=== PATIENT | female | born 1940 | race Caucasian/White ===

== ENCOUNTER 2019-02-24 19:01 | Inpatient (IN) ==
--- NOTE | 2019-02-24 19:56 | Diag Imaging Result Doc PS360 ---
EXAM: CT ABDOMEN/PELVIS W/O CONTRAST 02/24/2019 HISTORY: leticia pain, cva tenderness TECHNIQUE: This exam was performed using automated exposure control, adjustment of mA or kV according to patient size, and/or use of iterative reconstruction technique. COMMENT: There are no previous studies available for comparison. There is a small pleural effusion and minimal atelectasis in the posterior costophrenic sulcus on the right. There is a small pericardial effusion. There is no evidence of gallstones. There is no evidence of nephrolithiasis. There is some fullness of the right renal collecting system. There is no definite evidence of ureterolithiasis. There is a fair amount of stool present in the transverse and right colon as well as in the rectosigmoid colon. There is diverticulosis in the sigmoid colon without evidence of active diverticulitis. 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 There are numerous calcified injection granulomata in the gluteal fat. No evidence of acute bony disease is present. IMPRESSION: Constipation. Small right pleural effusion and basilar atelectasis. Minimal dilatation of the right renal collecting system of uncertain etiology. Diverticulosis coli. Electronically signed by Wellington Salmon 02/24/2019 7:54 PM
[2019-02-24 20:06] LABS: BILIRUBIN URINE NEGATIVE (NEGATIVE); BLOOD URINE NEGATIVE (NEGATIVE); CLARITY CLEAR (CLEAR); COLOR YELLOW; GLUCOSE URINE NEGATIVE (NEGATIVE); KETONE URINE NEGATIVE (NEGATIVE); LEUKOCYTES URINE NEGATIVE (NEGATIVE); NITRITE URINE NEGATIVE (NEGATIVE); PROTEIN URINE NEGATIVE (NEGATIVE); SP GRAVITY URINE 1.015; UROBILINOGEN URINE NORMAL
[2019-02-24 20:21] LABS: URINE BACTERIA 1+ /HFP; URINE CAST NONE SEEN /LPF; URINE CRYSTAL NONE SEEN /HPF; URINE EPITHELIAL CELLS <10 /HPF (<10); URINE WBC <10 /HPF (<10); URINE YEAST NONE SEEN /HPF
[2019-02-24 20:22] LABS: URINE SMALL ROUND CELLS RENAL PRESENT; URINE SOURCE CATH
[2019-02-24] MEDS ORDERED: TORADOL IM ONE (20:37)
--- NOTE | 2019-02-24 21:08 | Diag Imaging Result Doc PS360 ---
EXAM: CT ADDITNL MPLANAR/3D RECONST 02/24/2019 HISTORY: LUMBAR SPINE REFORMATIONS TECHNIQUE: This exam was performed using automated exposure control, adjustment of mA or kV according to patient size, and/or use of iterative reconstruction technique. COMMENT: There is some subsidence of the upper endplate of T12 without evidence of retropulsed fragments or subluxation. Otherwise the lumbar vertebral bodies appear to be well maintained. There is some generalized osteopenia. At the T11-12 level there is no evidence of spinal or foraminal stenosis. At T12-L1, there is no evidence of spinal or foraminal stenosis. At L1-2 there is no evidence of spinal or foraminal stenosis. At L2-3 there is no evidence of spinal or foraminal stenosis. At L3-4 there is some disc bulge and ligamentum flavum hypertrophy as well as hypertrophic change in the left facet. There is mild spinal and left foraminal stenosis. At the L4-5 level there is disc bulge and ligamentum flavum hypertrophy with a moderate degree of spinal stenosis. The foramina appear to be patent. At the L5-S1 level there is no evidence of spinal or foraminal stenosis. There are no previous studies available for comparison. No evidence of subsidence of the upper endplate of T12 is visible on the lateral chest radiograph of 01/04/2019. IMPRESSION: Probable osteoporotic compression fracture of the upper endplate of T12 which has occurred since 01/04/2019. No evidence of retropulsed fragments. Degenerative changes elsewhere as described above with spinal stenosis at L3-4 and L4-5 and left foraminal stenosis at L3-4. Electronically signed by Wellington Salmon 02/24/2019 9:05 PM
--- NOTE | 2019-02-25 01:07 | PROVIDER DOCUMENTATION ---
This chart was entered by Mirian Guadalupe Scribe, acting as scribe for Elvin Dan MD. HPI-Musculoskeletal Pain/Inj - GENERAL Chief Complaint: Back Pain Stated Complaint: lower back pain Time Seen by Provider: 02/24/19 19:08 Source: patient, family - HX OF PRESENT ILLNESS-MUSKULOSKELTAL Nature of Presenting Problem: 78 yof c/o pt arrived via ems for lower back pain she's had "for a while.". pt is tender on any movement in back. unsure if pt took otc meds or hot/ice therapy for pain. pt was seen in er yest for overactive bladder. pt has hx of blindness rt eye, high cholesterol, and dvt. Quality of Pain: reports: aching Severity in ED: mild Timing: still present Recently seen or treated by another doctor?: Yes (er yesterday ) Review of Systems - Adult - REVIEW OF SYSTEMS - ADULT Constitutional: reports: no symptoms reported Eyes: reports: no symptoms reported Ears, Nose, Mouth & Throat: reports: no symptoms reported Cardiovascular: reports: no symptoms reported Respiratory: reports: no symptoms reported Gastrointestinal: reports: no symptoms reported Genitourinary: reports: no symptoms reported Musculoskeletal: reports: see HPI, back pain (lower back). denies: joint pain, joint swelling, neck pain Integumentary: reports: no symptoms reported Neurological: reports: no symptoms reported Psychiatric: reports: no symptoms reported Endocrine: reports: no symptoms reported Hematologic/Lymphatic: reports: no symptoms reported Allergic/Immunologic: reports: no symptoms reported All Other Systems: Reviewed and Negative Past History - Adult - PAST MEDICAL HISTORY-ADULT Review of Records: reports: Old Records Reviewed, Nursing Assessment Review, Medications Reviewed, Social history reviewed & non-contributory. Major Childhood Illnesses: reports: denies history Cardiovascular: reports: blood clots, hyperlipidemia Respiratory: reports: denies history Gastrointestinal: reports: GERD Obstetrical/Gynecological: reports: denies history Genitourinary: reports: denies history Musculoskeletal: reports: denies history Neurological: reports: denies history Psychiatric: reports: denies history Endocrine/Immune: reports: denies history Other Conditions: reports: blindness (rt eye) - PRIOR SURGERIES/PROCEDURES Surgical/Procedure History: reports: , other (eye surgery) - IMMUNIZATION STATUS Childhood Immunizations: See Nurse Assessment Flu Vaccine: See Nurse Assessment - FAMILY HISTORY Family History: reviewed, not pertinent - SOCIAL HISTORY Smoking: other (former) Substance Use: none/never Physical Exam-Injury Related - Physical Exam-Injury Related Initial Vital Signs Reviewed: Yes General Appearance: alert, mild distress, thin. negative: lethargic, slow to respond, obtunded Immobilization?: negative: backboard, C-collar Eyes: PERRL/EOMI, pink conjunctivae, other (blind in rt eye). negative: conjuctival exudate, EOM palsy, photophobia Head, Ears, Nose, Mouth & Throat: normocephalic/atraumatic, moist mucous membranes, normal ENT inspection Neck: non-tender, full range of motion, supple, normal inspection Respiratory: chest non-tender, lungs clear, normal breath sounds Cardiovascular: normal peripheral pulses, regular rate, rhythm Chest/Breast: deferred Peripheral Pulses: radial (R): 2+, radial (L): 2+ Abdominal Exam: normal bowel sounds, non tender, soft Female Genitalia/Pelvic Exam: deferred Lymphatic: no adenopathy Back Exam: other (tenderness to palp and movement gneralized back). negative: normal inspection, no CVA tenderness, no vertebral tenderness Extremity: normal range of motion, non-tender, normal inspection Integumentary: normal color, warm/dry Neurologic: grossly normal, no motor/sensory deficits Psych/Mental Status: normal mood/affect, normal thought content, normal thought process, oriented x 3 - Glascow Coma Score Best Eye Response ([place]): (4) open spontaneously Best Verbal Response ([place]): (5) oriented Best Motor Response ([place]): (6) obeys commands [place] Total: 15 Progress - PLAN OF CARE/RESULTS Progress/Plan/Lab Results: Orders Category Date Time Status Admit - [facility] Routine AdmDCTranf 02/25/19 01:[address] ABDOMEN/PELVIS W/O CONTRAST [CT] Stat Exams 02/24/19 19:[address] ADDITNL MPLANAR/3D RECONST [CT] Stat Exams 02/24/19 20:43 Completed UA NIMS W/REFLEX CULT PL [URINALYSIS] Stat Lab 02/24/19 19:29 Completed Ketorolac [Toradol] Med 02/24/19 20:37 Discontinued 30 mg IM NOW ONE Tramadol [Ultram] Med 02/25/19 01:08 Active 50 mg PO Q6H PRN PRN Transfer/Admit Order [TRANSFER] Routine Transfer 02/25/19 01:07 Completed Result Diagrams: 02/26/19 11:09 02/26/19 11:09 - CT/MRI 1 CT Study: Abdomen, Pelvis Impression: Abnormal, See EMR Report (EXAM: CT ABDOMEN/PELVIS W/O CONTRAST 02/24/2019 HISTORY: leticia pain, cva tenderness TECHNIQUE: This exam was performed using automated exposure control, adjustment of mA or kV according to patient size, and/or use of iterative reconstruction technique. COMMENT: There are no previous studies available for comparison. There is a small pleural effusion and minimal atelectasis in the posterior costophrenic sulcus on the right. There is a small pericardial effusion. There is no evidence of gallstones. There is no evidence of nephrolithiasis. There is some fullness of the right renal collecting system. There is no definite evidence of ureterolithiasis. There is a fair amount of stool present in the transverse and right colon as well as in the rectosigmoid colon. There is diverticulosis in the sigmoid colon without evidence of active diverticulitis. 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 There are numerous calcified injection granulomata in the gluteal fat. No evidence of acute bony disease is present. IMPRESSION: Constipation. Small right pleural effusion and basilar atelectasis. Minimal dilatation of the right renal collecting system of uncertain etiology. Diverticulosis coli. Electronically signed by Wellington Salmon 02/24/2019 7:54 PM) 2 CT Study: Lumbar Spine Impression: Abnormal ([facility] - [address] [facility] [address], [place] [address] [facility] - [address] [place] [address] Department of Imaging Patient: INGA FRANCISCO Date: 02/24/19#: [id number] : 2ADM Status: [facility] ERAcct#: [id number] Age/Sex: 78/FRoom/Bed: Loc: P.ED Ordering Physician: Elvin Dan MD Family Physician: Josefa Crockett Reason for Procedure: LUMBAR SPINE REFORMATIONS Signed EXAM: CT ADDITNL MPLANAR/3D RECONST 02/24/2019 HISTORY: LUMBAR SPINE REFORMATIONS TECHNIQUE: This exam was performed using automated exposure control, adjustment of mA or kV according to patient size, and/or use of iterative reconstruction technique. COMMENT: There is some subsidence of the upper endplate of T12 without evidence of retropulsed fragments or subluxation. Otherwise the lumbar vertebral bodies appear to be well maintained. There is some generalized osteopenia. At the T11-12 level there is no evidence of spinal or foraminal stenosis. At T12-L1, there is no evidence of spinal or foraminal stenosis. At L1-2 there is no evidence of spinal or foraminal stenosis. At L2-3 there is no evidence of spinal or foraminal stenosis. At L3-4 there is some disc bulge and ligamentum flavum hypertrophy as well as hypertrophic change in the left facet. There is mild spinal and left foraminal stenosis. At the L4-5 level there is disc bulge and ligamentum flavum hypertrophy with a moderate degree of spinal stenosis. T he foramina appear to be patent. At the L5-S1 level there is no evidence of spinal or foraminal stenosis. There are no previous studies available for comparison. No evidence of subsidence of the upper endplate of T12 is visible on the lateral chest radiograph of 01/04/2019. IMPRESSION: Probable osteoporotic compression fracture of the upper endplate of T12 which has occurred since 01/04/2019. No evidence of retropulsed fragments. Degenerative changes elsewhere as described above with spinal stenosis at L3-4 and L4-5 and left foraminal stenosis at L3-4. Electronically signed by Wellington Salmon 02/24/2019 9:05 PM 02/24/192 Interpreting Physician: Wellington Salmon MD Dictated Lopez e/Time: 02/24/192057 cc: Elvin Dan MD; Josefa Crockett) - CONSULTS/PCP/HOSPITALIST Notification #1 *Consult/PCP/Hospitalist*: Dr. Wall Time Discussed: 00:20 Consult Disposition: Admit (Dr. wall will admit pt) Departure - Departure Date of Disposition Decision: 02/25/19 Time of Disposition Decision: 02:18 DIAGNOSIS: T12 compression fracture Disposition: ADMITTED INPATIENT 09 Certified Medical Emergency: Emergent Condition: Stable - Critical Care Note This patient required my direct & personal management of CC.: No Attestation - Physician/ FARZANEH Attestation Patient care was provided by Advanced Practice Provider:: No The physician spent face to face time with patient:: Yes Advanced Practice Provider documentation review:: Supervising physician onsite and consulted in the evaluation and care of this patient. The physician did have a face to face encounter with the patient. This chart was documented by the indicated scribe, (Mirian Guadalupe Scribe) and accurately reflects the services I performed and decisions made by me, Elvin Dan MD, as attested by the provider's signature.
[2019-02-25] MEDS: ULTRAM PO PRN ×2 (03:57→12:21)
[2019-02-25] MEDS ORDERED: TEARISOL OPH SOLUTION BOTH EYES PRN (08:18)
[2019-02-25] MEDS ORDERED: ROBAXIN PO PRN (08:24)
[2019-02-25] MEDS ORDERED: TYLENOL PO PRN (08:30)
[2019-02-25 08:41] LABS: BASO# 0.01 X1000 (0.0-0.2); BASO% 0.1 % (0.0-0.8); EOS# 0.09 X1000 (0.0-0.7); EOS% 1.3 % (0.0-10.0); HEMATOCRIT 29.8 % (37.0-47.0); HEMOGLOBIN 9.8 g/dL (12.0-16.0); IMM GRAN# 0.08 X1000 (0.0-0.04); IMM GRAN% 1.2 % (0.0-0.5); LYMPH# 0.41 X1000 (1.2-3.4); LYMPH% 6.1 % (20.5-51.1); MCH 30.4 PG (27-31); MCHC 32.9 g/dL (33-37); MCV 92.5 FL (81-99); MONO# 0.09 X1000 (0.11-0.59); MONO% 1.3 % (1.7-9.3); MPV 8.1 FL (7.4-10.4); NEUT# 6.06 X1000 (1.4-6.5); PLT 438 X1000 (130-400); RBC 3.22 XMIL (4.2-5.4); RDW 13.7 % (11.5-14.5); WBC 6.74 X1000 (4.8-10.8)
[2019-02-25] MEDS: TIMOPTIC 0.25% OPH SOLUTION LEFT EYE SCH ×2 (09:07→21:05)
[2019-02-25] MEDS: PRED FORTE 1% OPH SUSPENSION BOTH EYES SCH (09:07)
[2019-02-25] MEDS: THERA M PLUS PO SCH (09:08)
[2019-02-25] MEDS: RESTASIS 0.05% OPH DROPS BOTH EYES SCH ×2 (09:08→21:05)
[2019-02-25] MEDS: ELIQUIS PO SCH ×2 (09:08→21:05)
[2019-02-25] MEDS: DETROL LA PO SCH (09:08)
[2019-02-25] MEDS: FOLIC ACID PO SCH (09:08)
[2019-02-25 09:12] LABS: AGAP 10; ALBUMIN 3.2 g/dL (3.5-5.0); ALKALINE PHOSPHATASE 90 U/L (32-104); BUN 12 mg/dL (8-22); CALCIUM 11.4 mg/dL (8.8-10.2); CHLORIDE 91 mmol/L (98-107); COSMO 261; CREATININE 0.4 mg/dL (0.5-0.9); ESTIMATED GFR > 60; GLUCOSE 103 mg/dL (70-104); GOT 15 U/L (10-30); GPT 10 U/L (10-36); MAGNESIUM 1.8 mg/dL (1.5-2.7); POTASSIUM 4.1 mmol/L (3.5-5.1); SODIUM 130 mmol/L (136-145); TCO2 29 mmol/L (25-35); TOTAL PROTEIN 6.6 g/dL (6.3-8.3)
[2019-02-25 10:13] LABS: INR 1.16; PROTIME 15.4 Seconds (11.0-16.0)
[2019-02-25 10:14] LABS: PTT 45.1 Seconds (22.3-41.8)
--- NOTE | 2019-02-25 10:50 | HISTORY AND PHYSICAL ---
ADDENDUM REPORT ASSESSMENT AND PLAN: Stage 2 small decubitus with larger area of deep tissue injury. Apparently she has had it for a while according to her. Mepilex has been applied, and Wound Care has been consulted. Dictated by CEM Willard for Jerson Lovell MD cc: CEM Willard MD
--- NOTE | 2019-02-25 10:53 | HISTORY AND PHYSICAL ---
PRIMARY CARE PROVIDER: Physician's outreach assistant, Bon, from [facility]. CHIEF COMPLAINT: Lower back pain and excessive urination. HISTORY OF PRESENT ILLNESS: Ms. Fina Pizarro is a 78-year-old, female with a medical history, most recently had tongue cancer with 35 radiation treatments this year and had a recent lung biopsy that was inconclusive. Also had a left leg DVT this year. She is on Eliquis for uveitis and is blind in the right eye. She has been taking methotrexate for that. Presented to [facility] on 02/23/2019 with excessive urination. She was prescribed Detrol LA which she will continue that. She has only had one dose and now she is back after last night being assisted from the chair to the bed, she had severe lower back pain. She states the pain actually started when she was in the chair sitting. Her level of activity is very low. She has to have assistance for short distances and for long distances, she has to be in a wheelchair. From being in bed and not very active, she also has a small stage II decubitus ulcer along with deep tissue injury. It is purple and bruised in her sacral area. Imaging reveals that she has a T12 compression fracture. She also has an elevated calcium level. Was not diagnosed with osteoporosis yet. Given these findings, she likely has osteoporosis most likely secondary to inactivity but some other differential diagnoses including multiple myeloma or hyperparathyroidism will need to be evaluated as well. Giving the severe pain, she is unable to bear weight. She denies having any falls and this fracture is new from previous imaging. It was not of there in December 2018 imaging. She will stay here, get some physical therapy. We will consult orthopedics just for any further recommendations. She is likely not going to have surgery, probably just a back brace and physical therapy and symptom management. PAST MEDICAL HISTORY: 1. Folic acid deficiency. 2. Overactive bladder. 3. 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 She has been on methotrexate. 4. Tongue cancer this year, 2018, where she has received 35 radiation treatments. She has also had a biopsy that showed inconclusive. 5. Left leg DVT, on Eliquis. 6. Arthritis. 7. Osteopenia. 8. Diverticulosis. 9. Degenerative joint disease. 10. Spinal stenosis of L3, 4, and 5. SURGICAL HISTORY: 1. Recent tongue biopsy with inconclusive results, reported by the . 2. Eye surgery. 3. section. SOCIAL HISTORY: Quit smoking 30 years ago but she was a 1 pack per day smoker for 10 years. Denies alcohol or illicit drug use. She lives at home with her who still works but him and her 2 sisters help her with short distance activity. She had to have a wheelchair for long distance activity. FAMILY HISTORY: Mother had emphysema. Father had diabetes. Brother had diabetes. Denies any cancer in the family. ALLERGIES: Codeine causes nausea and vomiting, prednisone in high doses causes psychosis. HOME MEDICATIONS: 1. Refresh eyedrops. 2. Prednisone eyedrops in both eyes daily. 3. Restasis 1 drop in both eyes twice a day. 4. Timolol maleate eyedrops 1 drop in left eye twice a day. 5. Methotrexate 20 mg p.o. weekly. 6. Folic acid 1 mg p.o. daily. 7. Eliquis 5 mg p.o. twice daily. 8. Multivitamin 1 tablet p.o. daily. 9. Detrol LA 2 mg p.o. daily. REVIEW OF SYSTEMS: Fourteen point review of systems are complete and all are negative except for those mentioned above in the HPI. PHYSICAL EXAMINATION: VITAL SIGNS: Temperature 97.9 degrees, heart rate 80, respiratory rate 16, blood pressure 137/51, O2 saturation 98% on room air. GENERAL: Ms. Fina Pizarro is a 78-year-old, female. She is in no acute distress. She is able answer questions appropriately. HEENT: Atraumatic, normocephalic. Left pupil is reactive. Right eye is clouded over and blind. Mucous membranes are dry. NECK: Trachea midline. CARDIOVASCULAR: S1, S2. Regular rate and rhythm. No rubs, gallops, or murmurs. No lower extremity edema. There are +2 dorsalis and radial pulses. Negative JVD or carotid bruits. PULMONARY: Clear to auscultate, bilateral breath sounds. No accessory muscle use or work of breathing noted. GI: Soft, nontender, nondistended. Positive bowel sounds x4. EXTREMITIES: Moves all extremities equally. Decreased range of motion. Decreased strength, about a 4/5. NEUROLOGIC: A and O x3. Follows commands. Sensory is intact. SKIN: Warm, dry, intact except for the sacrum. She has a stage II with along with some deep tissue injury. The stage II is very small. LABORATORY DATA: White blood cells 6000, hemoglobin 9, hematocrit 29, platelet count 438,000. Sodium 130, potassium 4.1, BUN 12, creatinine 0.4, glucose 103, calcium 11.4, magnesium 1.8. Bilirubin 0.60, AST 15, ALT 10. CK 15, troponin less than 0.01. Albumin is 3.2, lactate 0.7. Urinalysis is negative. There is only 1+ bacteria. IMAGIN. Abdominal and pelvic CT: Constipation, small right pleural effusion with basilar atelectasis, minimal dilatation of the right renal collecting system of uncertain etiology, and diverticulosis. 2. A 3D reconstruction of the lumbar spine: Probable osteoporotic compression fracture of the upper endplate of T12 which has occurred since 01/04/2019. No evidence of retropulsed fragments, degenerative changes elsewhere as described above, the spinal stenosis at L3-4 and L4-5, and left foraminal stenosis at L3 and L4. ASSESSMENT AND PLAN: 1. T12 compression fracture. Orthopedic surgery consulted. Physical therapy consulted. Symptoms of pain controlled by Robaxin or Ultram. She did receive a 1 time dose of 30 mg of Toradol intramuscularly last night. 2. Differential diagnoses for the T12 endplate compression fracture would be multiple myeloma (she has an elevated calcium level), osteoporosis, or hyperparathyroidism. Labs obtained or ordered are serum protein electrophoresis, serum free light chain assay, PTH, and also immunoglobulin levels, and a phosphorus level as well. She is anemic as well. 3. Anemia. Anemia labs have been ordered. Denies any black stools but she is on Eliquis. We will order a stool to rule out bleeding as well. Denies nausea. 4. Constipation on imaging. We will order Yu-Colace. 5. Folic acid deficiency. Continue her folic acid. 6. Recent overactive bladder diagnosis. Continue Detrol LA. 7. 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 Continue the methotrexate weekly. I believe she will get a dose tomorrow at 20 mg and continue all of her eyedrops. 8. Recent tongue cancer with 35 radiation treatments this year and a recent tongue biopsy that was inconclusive. 9. Left deep venous thrombosis this year, on Eliquis. We will continue that. 10. Deep venous thrombosis prophylaxis. Of course, she is on Eliquis so we will continue with the Eliquis that she takes. Dictated by CEM Willard for Jerson Lovell MD Addendum: Patient seen and examined by myself. Agree with CEM note. It reflects my assessment and plan. Patient is being admitted to hospital for a compression fracture at T12 level. Will consult Orthopedics, and because of hypercalcemia will order multiple myeloma workup. Will optimize pain control and will consult 7th grade social studies teacher for possible rehab placement. cc: CEM Willard MD Ellie Adams MTDD
[2019-02-25] MEDS: PERICOLACE PO SCH ×2 (11:08→21:05)
[2019-02-25 11:14] LABS: FREE T4 0.52 ng/dL (0.93-1.70); TSH 87.33 uIUmL (0.27-4.20)
[2019-02-25 14:25] LABS: PREALBUMIN 6.4 mg/dL (20-40)
[2019-02-25 14:31] LABS: FERRITIN 1858 ng/mL (13-150)
--- NOTE | 2019-02-25 14:37 | EKG Report ---
Test Performed on : 02/25/2019 12:46:24 PM Test Reason : rythm eval Blood Pressure : / mmHG Vent. Rate : 084 BPM Atrial Rate : 084 BPM P-R Int : 160 ms QRS Dur : 104 ms QT Int : 360 ms P-R-T Axes : 091 077 041 degrees QTc Int : 425 ms Normal sinus rhythm. Incomplete right bundle branch block Nonspecific T wave abnormality Abnormal ECG No previous ECGs available Unconfirmed Result
--- NOTE | 2019-02-25 15:18 | ORTHOPAEDICS CONSULTATION ---
DATE: 02/25/2019 CHIEF COMPLAINT: Low back pain. HISTORY OF PRESENT ILLNESS: This is a 78-year-old female who has been complaining of low back pain. She was moved last night, and I was asked to see her in orthopedic consultation. She was diagnosed with a T12 compression fracture revealed on the CT scan. She has history of spinal stenosis in her lumbar region. PAST MEDICAL HISTORY: See admission history and physical. PAST MEDICAL AND SURGICAL HISTORY: See admission history and physical. MEDICATIONS: See admission history and physical. ALLERGIES: See admission history and physical. REVIEW OF SYSTEMS: Negative except as noted in H P and in my exam and history and physical. RADIOLOGY DATA: A CT scan reveals a subtle compression fracture of the superior endplate of T12. There is no retropulsed fracture, and there was no significant vertebral body height loss. ASSESSMENT: Stable thoracic compression fracture at T12. PLAN: We will order a TLSO brace. I am going to order physical therapy with weightbearing as tolerated. Her pain should be managed as needed by the hospitalist. She can go to rehab when cleared medically. If she fails to improve and wishes surgery, we should probably send her to [facility] for possible kyphoplasty. We can also get an MRI if desired for surgery to evaluate whether this is an acute or chronic fracture. It apparently was not there on 01/07, so it appears to be acute. cc: Mynor Knutson MD [facility]
[2019-02-26] MEDS: ULTRAM PO PRN ×2 (04:14→19:52)
[2019-02-26] MEDS: TIMOPTIC 0.25% OPH SOLUTION LEFT EYE SCH ×2 (09:18→22:44)
[2019-02-26] MEDS: PRED FORTE 1% OPH SUSPENSION BOTH EYES SCH (09:19)
[2019-02-26] MEDS: RESTASIS 0.05% OPH DROPS BOTH EYES SCH ×2 (09:19→23:07)
[2019-02-26] MEDS: DETROL LA PO SCH (09:20)
[2019-02-26] MEDS: THERA M PLUS PO SCH (09:20)
[2019-02-26] MEDS: ELIQUIS PO SCH ×2 (09:20→22:44)
[2019-02-26] MEDS: FOLIC ACID PO SCH (09:20)
[2019-02-26] MEDS: PERICOLACE PO SCH ×2 (09:20→22:44)
--- NOTE | 2019-02-26 09:50 | EKG Report ---
Test Performed on : 02/26/2019 09:40:33 AM Test Reason : Changes in tele Blood Pressure : / mmHG Vent. Rate : 078 BPM Atrial Rate : 078 BPM P-R Int : 152 ms QRS Dur : 118 ms QT Int : 352 ms P-R-T Axes : 081 069 007 degrees QTc Int : 401 ms Normal sinus rhythm. Right bundle branch block Abnormal ECG When compared with ECG of 25-FEB-2019 12:46, (Unconfirmed) No significant change was found Unconfirmed Result
[2019-02-26 11:23] LABS: BASO# 0.01 X1000 (0.0-0.2); BASO% 0.1 % (0.0-0.8); EOS# 0.05 X1000 (0.0-0.7); EOS% 0.6 % (0.0-10.0); HEMATOCRIT 29.4 % (37.0-47.0); HEMOGLOBIN 9.5 g/dL (12.0-16.0); IMM GRAN# 0.04 X1000 (0.0-0.04); IMM GRAN% 0.5 % (0.0-0.5); LYMPH# 0.31 X1000 (1.2-3.4); LYMPH% 3.6 % (20.5-51.1); MCHC 32.3 g/dL (33-37); MCV 92.7 FL (81-99); MONO# 0.24 X1000 (0.11-0.59); MONO% 2.8 % (1.7-9.3); MPV 8.1 FL (7.4-10.4); NEUT# 8.03 X1000 (1.4-6.5); NEUT% 92.4 % (42.2-75.2); PLT 462 X1000 (130-400); RBC 3.17 XMIL (4.2-5.4); RDW 13.7 % (11.5-14.5); WBC 8.68 X1000 (4.8-10.8)
[2019-02-26 11:24] LABS: ESTIMATED GFR > 60
[2019-02-26 11:25] LABS: AGAP 11; BUN 12 mg/dL (8-22); CALCIUM 11.3 mg/dL (8.8-10.2); CHLORIDE 89 mmol/L (98-107); COSMO 259; CREATININE 0.5 mg/dL (0.5-0.9); GLUCOSE 100 mg/dL (70-104); POTASSIUM 4.3 mmol/L (3.5-5.1); SODIUM 129 mmol/L (136-145); TCO2 29 mmol/L (25-35)
[2019-02-26 11:39] LABS: MAGNESIUM 1.8 mg/dL (1.5-2.7); PHOSPHORUS 3.9 mg/dL (2.7-4.5)
[2019-02-26 11:43] LABS: LYMPHS 3 % (21-51); MONO 2 % (1-9); SEGS 95 % (42-75)
--- NOTE | 2019-02-26 12:31 | PROGRESS NOTE ---
DATE: 02/26/2019 SUBJECTIVE: Patient reports still having some back pain. Apparently, there has been also on admission noted some excessive urination. OBJECTIVE: Vital Signs: Temperature 98.5 degrees, heart rate 17, respiratory rate 18, blood pressure 142/50. O2 saturation 96% on room air. General: This is a 78-year-old female lying in bed in no acute distress. HEENT: Head is normocephalic, atraumatic. Right eye is clouded. Left pupil is reactive to light and accommodation. Neck: No JVD noted. No carotid bruits. Cardiovascular: S1, S2 heard. No murmurs, gallops, or rubs. Regular rate and rhythm. Respiratory: Clear bilaterally to auscultation. No work of breathing or using accessory muscles. Abdomen: Soft, nontender to palpation. Bowel sounds present. No organomegaly. Extremities: No clubbing, cyanosis, or edema. Peripheral pulses present in both legs. Neurological: Decreased strength in both lower extremities 4/5. Follows commands. Sensory is intact. Skin: In the sacrum, there is stage II pressure ulcer with some deep tissue injury. LABORATORY DATA: White cell count 8.68 hemoglobin 9.5, hematocrit 29.4, and MCV is normal. Sodium 129. Normal creatinine. Calcium 11.3, with ferritin 1858. Prealbumin 6.4. TSH is 87.33. ASSESSMENT AND PLAN: 1. T12 compression fracture. Orthopedics has been consulted. They recommend that a TLSO brace, and physical therapy has been ordered with weightbearing as tolerated. The patient does not need to have any surgical approach at this time, but he felt improved. They recommend to have neurosurgical evaluation for possible kyphoplasty if needed, but of course not at this time. 2. Severe hypercalcemia, one of the complaints for this patient was excess urination and dehydration. I think that is related to this hypercalcemia. In that regard, IV fluids has been started. Also, she has been provided Zometa, and also calcitonin in order to help calcium to lower down. We will check calcium tomorrow, and we will continue with IV fluids. 3. Anemia of chronic disease. At this point, I am not quite sure with this elevated calcium and anemia and back pain if this patient had multiple myeloma. Workup has been ordered. At this point, we will continue to monitor. 4. Severe hypothyroidism. This is a finding that the ER workup showed. At this time, we are going to order thyroid hormones. We are going to check a thyroid ultrasound to see if there are any nodules. We will continue to monitor. 5. Left lower extremity DVT. Patient is on Eliquis. We will continue with the same management. 6. Overactive bladder. Patient will continue with the Detrol LA. 7. Disposition: We will continue to monitor this patient closely. cc: Jerson Lovell MD MTDD
[2019-02-26] MEDS ORDERED: ZOMETA 4 MG in NS 100 ML IV ONE (13:00)
[2019-02-26] MEDS: NS 1,000 ML IV SCH (13:00)
[2019-02-26] MEDS ORDERED: MIACALCIN SUBQ SCH (14:00)
[2019-02-26] MEDS: MIACALCIN SUBQ SCH (14:56)
--- NOTE | 2019-02-26 15:10 | Diag Imaging Result Doc PS360 ---
EXAM: US SOFT TISSUE HEAD/NECK - 02/26/2019 HISTORY: hypothyroidism TECHNIQUE: Portable ultrasound thyroid COMPARISON: None. FINDINGS: The right lobe measures 2.6 x 0.9 x 1 cm in size. There is a 0.5 cm cystic lesion with small mural nodule at the lower right lobe. The left lobe measures 2.2 x 0.8 x 0.8 cm in size. There is a 0.3 cm complex, partially cystic appearing lesion at the mid left lobe. IMPRESSION: 0.5 cm cystic lesion with small mural nodule at lower right lobe. 0.3 cm complex, partially cystic lesion at mid left lobe. Electronically signed by Jermaine Shukla 02/26/2019 3:07 PM
[2019-02-27] MEDS: MIACALCIN SUBQ SCH (03:40)
[2019-02-27] MEDS: NS 1,000 ML IV SCH ×2 (03:46→17:45)
[2019-02-27 07:00] LABS: HEMATOCRIT 27.5 % (37.0-47.0); HEMOGLOBIN 8.9 g/dL (12.0-16.0); LYMPH% 2.8 % (20.5-51.1); MCH 29.8 PG (27-31); MCHC 32.4 g/dL (33-37); MPV 8.1 FL (7.4-10.4); NEUT% 91.9 % (42.2-75.2); PLT 453 X1000 (130-400); RBC 2.99 XMIL (4.2-5.4); RDW 13.7 % (11.5-14.5); WBC 6.69 X1000 (4.8-10.8)
[2019-02-27] MEDS ORDERED: SYNTHROID PO SCH (07:00)
[2019-02-27 07:01] LABS: BASO# 0.01 X1000 (0.0-0.2); BASO% 0.1 % (0.0-0.8); EOS# 0.03 X1000 (0.0-0.7); EOS% 0.4 % (0.0-10.0); IMM GRAN% 1.5 % (0.0-0.5); LYMPH# 0.19 X1000 (1.2-3.4); MONO# 0.22 X1000 (0.11-0.59); MONO% 3.3 % (1.7-9.3); NEUT# 6.14 X1000 (1.4-6.5)
[2019-02-27 07:25] LABS: AGAP 12; BUN 8 mg/dL (8-22); CALCIUM 9.2 mg/dL (8.8-10.2); CHLORIDE 94 mmol/L (98-107); COSMO 262; CREATININE 0.3 mg/dL (0.5-0.9); ESTIMATED GFR > 60; GLUCOSE 88 mg/dL (70-104); MAGNESIUM 1.6 mg/dL (1.5-2.7); PHOSPHORUS 2.7 mg/dL (2.7-4.5); POTASSIUM 3.9 mmol/L (3.5-5.1); SODIUM 132 mmol/L (136-145); TCO2 26 mmol/L (25-35)
[2019-02-27] MEDS ORDERED: SYNTHROID PO ONE (07:30)
--- NOTE | 2019-02-27 09:27 | Diag Imaging Result Doc PS360 ---
EXAM: CHEST-PORTABLE HISTORY: Rehab TECHNIQUE: Portable chest single view COMPARISON: 01/04/2019 FINDINGS: The lungs are well expanded. The heart is not enlarged. The vessels are not distended. There are infiltrates in the mid right lung. No effusion identified. IMPRESSION: Small infiltrates in the mid right lung. Electronically signed by Jb Scott 02/27/2019 9:24 AM
[2019-02-27 10:37] LABS: ANISOCYTOSIS 1+; LYMPHS 3 % (21-51); MONO 5 % (1-9); SEGS 91 % (42-75)
--- NOTE | 2019-02-27 10:41 | ECHO REPORT ---
ORDER DATE: 02/26/2019 INTERPRETING PHYSICIAN: Dr. Darwin Souza ECHOCARDIOGRAPHIC MEASUREMENTS: 1. Interventricular septum: 0.9 cm. 2. Posterior wall: 1.0 cm. 3. Diastolic diameter: 4.1 cm. 4. Left atrium: 3.0 cm. 5. Aortic root: 3.0 cm. SUMMARY OF THE 2-DIMENSIONAL IMAGIN. Pulmonic valve was normal. 2. Aortic valve leaflets are trileaflet. 3. Tricuspid valve was normal. 4. Mitral valve was normal. 5. There is mild tricuspid regurgitation. Peak velocity across the tricuspid valve was 2.7 m/sec. 6. Pulmonary artery systolic pressure of 40 mmHg. 7. Peak velocity across the aortic valve less than 2 m/sec by Doppler studies. There is no aortic stenosis or regurgitation. 8. There is mild mitral regurgitation. 9. Normal left ventricular cavity size. Estimated ejection fraction of 70%. 10. Hyperdynamic left ventricular systolic function. 11. There is no pericardial effusion or obvious intracardiac mass or thrombus seen. cc: MD Jerson Hawkins MD
[2019-02-27] MEDS: TIMOPTIC 0.25% OPH SOLUTION LEFT EYE SCH ×2 (10:54→20:44)
[2019-02-27] MEDS: PRED FORTE 1% OPH SUSPENSION BOTH EYES SCH (10:54)
[2019-02-27] MEDS: RESTASIS 0.05% OPH DROPS BOTH EYES SCH ×2 (10:55→20:44)
[2019-02-27] MEDS: DETROL LA PO SCH (10:55)
[2019-02-27] MEDS: PERICOLACE PO SCH ×2 (10:55→20:44)
[2019-02-27] MEDS: LACTULOSE PO SCH ×2 (10:55→20:44)
[2019-02-27] MEDS: ELIQUIS PO SCH ×2 (10:55→20:44)
[2019-02-27] MEDS: THERA M PLUS PO SCH (10:55)
[2019-02-27] MEDS: FOLIC ACID PO SCH (10:56)
[2019-02-27] MEDS: ULTRAM PO PRN (17:44)
--- NOTE | 2019-02-27 20:00 | PROGRESS NOTE ---
DATE: 02/27/2019 SUBJECTIVE: Patient notes she is still having lots of back pain. She is having some constipation. Has not really been able to get out of bed. PHYSICAL EXAM: Vital signs: Temperature afebrile respiratory 22, BP 144/43. General: Patient is awake. Currently she is in no distress, but obviously in pain. HEENT: Normocephalic, atraumatic. Neck: Supple. Cardiovascular: Regular rate. Chest: Clear. Abdomen: Soft nondistended. ASSESSMENT: 1. T12 compression fracture. 2. Hypertension. 3. Hypercalcemia, improved. At this point we will stop her Miacalcin. 4. Hyponatremia. 5. Hypothyroidism. Her TSH is still elevated at 88. We will increase her Synthroid from 50 to 125, and we will follow. 6. Anemia of chronic disease. 7. Left lower extremity deep vein thrombosis currently on Eliquis. PLAN: We will continue the patient in the hospital, increase her thyroid. Hopefully she can get pain control and possibly even discharge to rehab soon. cc: Lewis Batres MD MTDD
[2019-02-28] MEDS: ULTRAM PO PRN (02:15)
[2019-02-28] MEDS: NS 1,000 ML IV SCH (06:41)
[2019-02-28] MEDS ORDERED: SYNTHROID PO SCH ×2 (07:00)
[2019-02-28] MEDS: PRED FORTE 1% OPH SUSPENSION BOTH EYES SCH (10:57)
[2019-02-28] MEDS: TIMOPTIC 0.25% OPH SOLUTION LEFT EYE SCH (10:57)
[2019-02-28] MEDS: LACTULOSE PO SCH (10:57)
[2019-02-28] MEDS: RESTASIS 0.05% OPH DROPS BOTH EYES SCH (10:57)
[2019-02-28] MEDS: DETROL LA PO SCH (10:58)
[2019-02-28] MEDS: FOLIC ACID PO SCH (10:58)
[2019-02-28] MEDS: THERA M PLUS PO SCH (10:58)
[2019-02-28] MEDS: ELIQUIS PO SCH (10:58)
[2019-02-28] MEDS: PERICOLACE PO SCH (10:58)
--- NOTE | 2019-02-28 11:25 | DISCHARGE SUMMARY ---
ADMISSION DATE: 02/25/2019 DISCHARGE DATE: 02/28/2019 PRIMARY CARE PROVIDER: Ruiz Shepard. CONSULTATIONS: Dr. Knutson PERTINENT PROCEDURES: 1. Constipation, small right pleural effusion, bibasilar atelectasis, minimal dilatation of the right renal collecting system of uncertain etiology. Diverticulosis coli. 2. 3D lumbar spine showed probable osteoporotic compression fractures of the upper endplate of T 12 which has occurred since 01/04/2019. No evidence of retropulsed fragments. Degenerative changes elsewhere as described above with spinal stenosis at L3 through 4 and L4 through 5, and left foraminal stenosis at L3-3 4. 3. Echocardiogram: EF of 70%. 4. Head and neck ultrasound 0.5 cm cystic lesion with small mural nodule of the lower right lung zone. 5. Final chest x-ray small infiltrates in the left midlung correction in the mid right lung. DISCHARGE DIAGNOSES: 1. T12 compression fracture. The patient has been evaluated by Dr. Knutson with orthopedics. He ordered a TLSO brace, ordered physical therapy with weightbearing as tolerated in and continued pain management and recommended rehab and if she fails to improve she would need to follow up with [facility] for possible kyphoplasty. 2. Hypertension continue home medications. 3. Hypercalcemia improved. Her Miacalcin was stopped. 4. Hyponatremia improving. 5. Hypothyroidism. Her Synthroid was increased from 50 to 125. 6. Anemia of chronic disease. 7. Left lower extremity deep venous thrombosis, currently on Eliquis. HOSPITAL COURSE: Briefly, Mrs. Pizarro is a 78-year-old female with a past medical history of tongue cancer with 35 radiation treatments this year and recent lung biopsy that was inconclusive, a left leg DVT on Eliquis, right eye blindness presented to [facility] ED on 02/23/2019 with excessive urination, was prescribed Detrol LA. She came back later that night from being assisted from the chair to the bed with severe low back pain. The pain actually started while she was sitting in the chair. Imaging revealed a T12 compression fracture as well as an elevated calcium level. She had not been diagnosed with osteoporosis yet. Given her severe pain and unable to bear weight she was admitted to the hospital with an orthopedic consult. They did a 3D reconstruction that did show an acute osteoporotic compression fracture of the upper endplate of the T12 that had occurred since 01/04/2019. She was placed in a TLSO brace and weightbearing with physical therapy as tolerated. Recommended rehab and if the patient did not get any relief from pain on rehab, she would need to follow up with [facility]. Her electrolytes have improved. They did adjust her thyroid medication and increased it. She has been working with physical therapy and will be discharged to [facility] today. VITAL SIGNS: At time of discharge, temperature is 98 degrees, heart rate 77, respirations 16, blood pressure 131/57, O2 is 98% on room air. DISCHARGE DIET: Regular. Ensures t.i.d. with meals vanilla. DISCHARGE MEDICATIONS: 1. Refresh classic eyedrops 1 each eye q.4 hours p.r.n. 2. Eliquis 5 mg p.o. at bedtime. 3. Folic acid 1 mg p.o. daily. 4. Methotrexate 2.5 mg p.o. as directed 8 tablets weekly. 5. Prednisolone eyedrops 1 drop at both eyes daily. 6. Restasis 1 drop both eyes twice a day. 7. Timolol 1 drop left eye b.i.d. 8. Multivitamin 1 tab p.o. daily. 9. Detrol LA 10 mg p.o. daily. 10. Ultram 50 mg p.o. q.6 hours. FOLLOWUP: Ms. Pizarro is being discharged to rehab with a TLSO brace. She will continue to work with physical therapy and be weightbearing as tolerated. She is to take all her medications as prescribed. If the pain continues and could not be tolerated with pain regimen and physical therapy she may need to be referred to [facility] for kyphoplasty. She can return to the ED or call 911 for any worsening of symptoms. Dictated by CEM Angel for Lewis Batres MD cc: Lewis Batres MD
[2019-02-28 13:11] VITALS: BP 146/57
--- NOTE | 2019-03-01 04:15 | PROGRESS NOTE ---
DATE: 02/28/2019 SUBJECTIVE: Patient still complains of constipation, although does note that she had a bowel movement yesterday. Still complains of pain with any movement. PHYSICAL EXAMINATION: Vital Signs: Reviewed. She is awake, alert. She is afebrile. Temperature 97.9 degrees, pulse 81, BP 144/43. General: Patient is in no current distress. HEENT: Normocephalic. Neck: Supple. Cardiovascular: Regular rate. Chest: Clear. Abdomen: Soft. Extremities: Moves all extremities. ASSESSMENT: 1. T12 compression fracture. 2. Constipation. 3. Hypercalcemia, resolved. 4. Hyponatremia, resolved. 5. Hypothyroidism. TSH was recently 88. We increased her Synthroid to 125. We will check this in the future. 6. Left lower extremity deep venous thrombosis. PLAN: Hopefully, patient can transition to rehab possibly today if bed is available. We will continue to follow otherwise. She will have her thyroid rechecked a week. cc: Lewis Batres MD
[2019-03-01] MEDS ORDERED: METHOTREXATE PO SCH ×2 (09:00→21:00)
== END 2019-02-28 18:04 | DRG 543 ==
LOC: P.ED 19:01 → P.MEDSURG 02-25 02:07 → SUATTDRO 02-25 02:07
PROVIDERS: ATTEND Family Medicine
CPT/HCPCS: 71010; 71045; 74176; 76377; 76536; 80048; 80053; 81001; 82550; 82607; 82728; 82746; 82784; 83540; 83550; 83605; 83735; 83883; 83970; 84100; 84134; 84155; 84165; 84439; 84443; 84484; 85025; 85610; 85730; 86334; 87040; 93005; 93306; 96372; 97163; 97530; 99283; 99285; A9270; J0630; J1885; J3487; J3489; J7030; Q2051

== ENCOUNTER 2019-03-10 09:46 | Inpatient (IN) ==
[2019-03-10 10:36] LABS: URINE SOURCE CATH
[2019-03-10 10:49] LABS: AGAP 13; ALB/GLOB RATIO 1.4; ALBUMIN 3.4 g/dL (3.5-5.0); ALKALINE PHOSPHATASE 106 U/L (32-104); BUN 6 mg/dL (8-22); CALCIUM 8.9 mg/dL (8.8-10.2); CHLORIDE 93 mmol/L (98-107); COSMO 267; CREATININE 0.4 mg/dL (0.5-0.9); ESTIMATED GFR > 60; GLUCOSE 92 mg/dL (70-104); GOT 16 U/L (10-30); GPT 6 U/L (10-36); POTASSIUM 3.8 mmol/L (3.5-5.1); SODIUM 135 mmol/L (136-145); TCO2 29 mmol/L (25-35); TOTAL BILIRUBIN 0.63 mg/dL (0.20-1.00); TOTAL PROTEIN 5.9 g/dL (6.3-8.3)
[2019-03-10 11:05] LABS: BILIRUBIN URINE SMALL (NEGATIVE); BLOOD URINE TRACE (NEGATIVE); COLOR YELLOW; GLUCOSE URINE NEGATIVE (NEGATIVE); KETONE URINE NEGATIVE (NEGATIVE); LEUKOCYTES URINE LARGE (NEGATIVE); NITRITE URINE POSITIVE (NEGATIVE); PH URINE 7.5; PROTEIN URINE TRACE mg/dL (NEGATIVE); TURBIDITY URINE HAZY (CLEAR); UROBILINOGEN URINE 4 mg/dL (NORMAL)
[2019-03-10 11:06] LABS: BASO# 0.01 X1000 (0.0-0.2); BASO% 0.2 % (0.0-0.8); EOS# 0.04 X1000 (0.0-0.7); EOS% 0.8 % (0.0-10.0); HEMATOCRIT 32.9 % (37.0-47.0); HEMOGLOBIN 10.6 g/dL (12.0-16.0); IMM GRAN# 0.09 X1000 (0.0-0.04); IMM GRAN% 1.8 % (0.0-0.5); LYMPH# 0.33 X1000 (1.2-3.4); LYMPH% 6.5 % (20.5-51.1); MCH 29.4 PG (27-31); MCHC 32.2 g/dL (33-37); MCV 91.4 FL (81-99); MONO# 0.18 X1000 (0.11-0.59); MONO% 3.5 % (1.7-9.3); MPV 7.6 FL (7.4-10.4); NEUT# 4.46 X1000 (1.4-6.5); NEUT% 87.2 % (42.2-75.2); PLT 389 X1000 (130-400); RDW 15.5 % (11.5-14.5); WBC 5.11 X1000 (4.8-10.8)
[2019-03-10 11:07] LABS: UR EPITHELIAL CELLS <10 /HPF (<10); URINE BACTERIA NEGATIVE /HPF; URINE RBC <10 /HPF (<10); URINE WBC TNTC /HPF (<10)
[2019-03-10] MEDS ORDERED: ROCEPHIN 2 GM in NS 50 ML IV ONE (11:09)
--- NOTE | 2019-03-10 12:11 | Diag Imaging Result Doc PS360 ---
CT ABDOMEN/PELVIS W/O CONTRAST - 03/10/2019 INDICATION: FLANK PAIN COMPARISON: 02/24/2019 FINDINGS: There is a small right pleural effusion. No infiltrates. There is COPD. Heart size is normal with no pericardial effusion. No radiodense renal stones. No hydronephrosis or hydroureter. There is severe diffuse constipation. There is severe rectal stool impaction with a stool ball measuring 8 cm. There is a Stanford catheter in the urinary bladder. Urinary bladder appears normal. There is significant calcified vascular disease. There are moderate degenerative changes of the spine. No acute or suspicious bony lesion. IMPRESSION: 1. Severe constipation with severe rectal stool impaction. 2. Negative for renal stone disease. 3. Small right pleural effusion. COPD. This exam was performed using automated exposure control, adjustment of mA or kV according to patient size, and/or use of iterative reconstruction technique Electronically signed by Sancho Lincoln 03/10/2019 12:08 PM
[2019-03-10] MEDS ORDERED: DULCOLAX PR ONE (12:15)
[2019-03-10] MEDS ORDERED: TORADOL IV ONE (12:16)
--- NOTE | 2019-03-10 12:55 | PROVIDER DOCUMENTATION ---
This chart was entered by Beverly Byers Scribe, acting as scribe for Andrea Cortes MD. HPI-Female /OB/Breast - General Stated Complaint: uti Time Seen by Provider: 03/10/19 09:50 Source: reports: patient Allergies/Adverse Reactions: Patient Allergies Allergy/AdvReac Type Severity Reaction Status Date / Time codeine AdvReac NAUSEA/VOMI Verified 02/23/19 11:02 TING prednisone AdvReac NAUSEA/VOMI Verified 02/23/19 11:39 TING Home Medications: Home Medication List Medication Instructions Recorded Confirmed Last Taken Type Tolterodine Tartrate [Detrol LA] 2 mg PO DAILY #14 cap.er.24h 02/23/19 03/10/19 Unknown Rx Cyclosporine [Restasis] 1 drp BOTH EYES BID 02/25/19 03/10/19 Unknown History Folic Acid 1 tab PO DAILY 02/25/19 03/10/19 Unknown History Methotrexate 2 tab PO DIRECTED 02/25/19 03/10/19 Unknown History Polyvinyl Alcohol/Povidone/Pf 1 ea OPHTHALMIC (EYE) Q4HR PRN 02/25/19 03/10/19 Unknown History [Refresh Classic Eye Drops] Prednisolone Acetate/Pf 1 droperette BOTH EYES DAILY 02/25/19 03/10/19 Unknown History [Prednisolone Acet 1% Eye Drop] Timolol Maleate [Timolol Maleate 1 drp LEFT EYE BID 02/25/19 03/10/19 Unknown History 0.25% OPH] Acetaminophen [Pain Reliever] 2 tab PO Q6H PRN 03/10/19 03/10/19 Unknown History Docusate Sodium [Colace] 1 cap PO QHS 03/10/19 03/10/19 Unknown History Levofloxacin [Levaquin] 1 tab PO DAILY MDD STOP 03/11/19 03/10/19 03/10/19 Unknown History Levothyroxine [Synthroid] 1 tab PO DAILY@0500 03/10/19 03/10/19 Unknown History Sennosides [Senna] 1 tab PO DAILY PRN 03/10/19 03/10/19 Unknown History - History of Present Illness-Female /OB Nature of Presenting Problem: 78yof presents to ED cc lower abdominal pain, rectal pain and bladder pain that is getting worse. Pt was seen at [facility] 1 week ago for similar symptoms, dx with UTI and has been in Rehab since. Pt denies N/V/D. Pt has hx of tongue cancer and has taken radiation recently. Pt is on Eliquis for hx of blood clots. Does patient report she is ?: No Location of complaint: reports: suprapubic Radiation: reports: groin Quality of Pain: reports: pressure, sharp Severity in ED: reports: moderate Onset/Duration: reports: gradual Timing: reports: still present, constant, changing over time Context/Activities at Onset: reports: light activity Vaginal Symptoms: reports: no symptoms Vaginal Bleeding Amount: None Modifying Factors: worse with: urinating Similar Symptoms Previously?: Yes Recently seen or treated by another doctor?: Yes (02/23/19 seen at [facility]) Review of Systems - Adult - REVIEW OF SYSTEMS - ADULT Constitutional: reports: see HPI. denies: chills, fever, fatique Eyes: reports: no symptoms reported Ears, Nose, Mouth & Throat: reports: no symptoms reported Cardiovascular: reports: see HPI. denies: chest pain, palpitations Respiratory: reports: see HPI. denies: shortness of breath, wheezing Gastrointestinal: reports: see HPI, abdominal pain (suprapubic). denies: diarr hea, nausea, vomiting Genitourinary: reports: see HPI, dysuria, frequent UTI's. denies: hematuria Musculoskeletal: reports: no symptoms reported Integumentary: reports: no symptoms reported Neurological: reports: no symptoms reported Psychiatric: reports: no symptoms reported Endocrine: reports: no symptoms reported Hematologic/Lymphatic: reports: no symptoms reported Allergic/Immunologic: reports: no symptoms reported All Other Systems: Reviewed and Negative Past History - Adult - PAST MEDICAL HISTORY-ADULT Review of Records: reports: Nursing Assessment Review, Medications Reviewed, Social history reviewed & non-contributory. Major Childhood Illnesses: reports: denies history Cardiovascular: reports: blood clots, hyperlipidemia Respiratory: reports: denies history Gastrointestinal: reports: GERD Obstetrical/Gynecological: reports: denies history Genitourinary: reports: denies history Musculoskeletal: reports: denies history Neurological: reports: denies history Psychiatric: reports: denies history Endocrine/Immune: reports: denies history Other Conditions: reports: blindness (rt eye) - PRIOR SURGERIES/PROCEDURES Surgical/Procedure History: reports: , other (eye surgery) - IMMUNIZATION STATUS Childhood Immunizations: See Nurse Assessment Flu Vaccine: See Nurse Assessment - FAMILY HISTORY Family History: reviewed, not pertinent - SOCIAL HISTORY Smoking: denies Physical Exam-General - PHYSICAL EXAM-ADULT Initial Vital Signs Reviewed: Yes - CONSTITUTIONAL General Appearance: appears well, alert, no apparent distress, thin. 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 negative: meningismus, subconjunctival hemorrhage - HEAD, EARS, NOSE, MOUTH & THROAT HENMT: moist mucous membranes, normal ENT inspection. negative: angioedema - NECK Neck: full range of motion. negative: C-spine tenderness - RESPIRATORY Respiratory: chest non-tender, lungs clear, normal breath sounds, no pleuratic chest pain, no respiratory distress. negative: crackles, rales, rhonchi, stridor, wheezing - CARDIOVASCULAR Cardiovascular: normal peripheral pulses, regular rate, rhythm, no edema, no gallop, no JVD, no murmur. negative: bradycardia, tachycardia - GASTROINTESTINAL (ABDOMEN) Abdominal Exam: normal bowel sounds, soft, no organomegaly, no pulsatile mass, tenderness (suprapubic). negative: non tender, distended, guarding, rigid, rebound - MUSCULOSKELETAL Extremity: normal inspection, no pedal edema, no calf tenderness, normal capillary refill. negative: deformity, swelling, tenderness - SKIN Integumentary: normal color, normal turgor, warm/dry. negative: cyanosis, diaphoresis, erythema, jaundice - NEUROLOGIC Neurologic: grossly normal, no motor/sensory deficits. negative: facial droop, focal weakness - PSYCHIATRIC Psych/Mental Status: normal mood/affect, normal thought content, normal thought process, oriented x 3. negative: disoriented x 3, anxious, disheveled, depressed affect Progress - PLAN OF CARE/RESULTS Progress/Plan/Lab Results: Vital Signs - 8 hr 03/10/19 09:53 03/10/19 10:35 03/10/19 10:40 Temperature 98.2 F Pulse Rate 81 Respiratory Rate 12 Blood Pressure 150/63 O2 Sat by Pulse Oximetry 95 95 94 L 03/10/19 12:05 Temperature Pulse Rate Respiratory Rate Blood Pressure O2 Sat by Pulse Oximetry 94 L Laboratory Results - last 24 hr 03/10/19 03/10/19 03/10/19 10:05 10:05 10:25 WBC 5.11 RBC 3.60 L Hgb 10.6 L Hct 32.9 L MCV 91.4 MCH 29.4 MCHC 32.2 L RDW Std Deviation 15.5 H Plt Count 389 MPV 7.6 Immature Gran % (Auto) 1.8 H Neut % (Auto) 87.2 H Lymph % (Auto) 6.5 L [place] % (Auto) 3.5 Eos % (Auto) 0.8 Baso % (Auto) 0.2 Immature Gran # (Auto) 0.09 H Neut # (Auto) 4.46 Lymph # (Auto) 0.33 L [place] # (Auto) 0.18 Eos # (Auto) 0.04 Baso # (Auto) 0.01 Sodium 135 L Potassium 3.8 Chloride 93 L Carbon Dioxide 29 Anion Gap 13 BUN 6 L Creatinine 0.4 L Estimated GFR/1.73 m2 > 60 BUN/Creatinine Ratio 15 Glucose 92 Calculated Osmolality 267 Calcium 8.9 Total Bilirubin 0.63 AST 16 ALT 6 L Alkaline Phosphatase 106 H Total Protein 5.9 L Albumin 3.4 L Globulin 2.5 Albumin/Globulin Ratio 1.4 Plasma Lactate Urine Source CATH Urine Color YELLOW Urine Turbidity HAZY Urine pH 7.5 Ur Specific [place] 1.010 Urine Protein TRACE A Ur Glucose (Stick) NEGATIVE Ur Ketones (Stick) NEGATIVE Urine Blood TRACE A Urine Nitrite POSITIVE A Urine Bilirubin SMALL A Urobilinogen Dipstick 4 A Urine Leukocytes LARGE A Urine WBC (Auto) TNTC A Urine RBC (Auto) <10 U Epithel Cells (Auto) <10 Urine Bacteria (Auto) NEGATIVE 03/10/19 11:40 WBC RBC Hgb Hct MCV MCH MCHC RDW Std Deviation Plt Count MPV Immature Gran % (Auto) Neut % (Auto) Lymph % (Auto) [place] % (Auto) Eos % (Auto) Baso % (Auto) Immature Gran # (Auto) Neut # (Auto) Lymph # (Auto) [place] # (Auto) Eos # (Auto) Baso # (Auto) Sodium Potassium Chloride Carbon Dioxide Anion Gap BUN Creatinine Estimated GFR/1.73 m2 BUN/Creatinine Ratio Glucose Calculated Osmolality Calcium Total Bilirubin AST ALT Alkaline Phosphatase Total Protein Albumin Globulin Albumin/Globulin Ratio Plasma Lactate 1.1 Urine Source Urine Color Urine Turbidity Urine pH Ur Specific [place] Urine Protein Ur Glucose (Stick) Ur Ketones (Stick) Urine Blood Urine Nitrite Urine Bilirubin Urobilinogen Dipstick Urine Leukocytes Urine WBC (Auto) Urine RBC (Auto) U Epithel Cells (Auto) Urine Bacteria (Auto) Orders Category Date Time Status Stanford Cath Insertion ORDERED Care 03/10/19 10:33 Active Saline Loc NOW Care 03/10/19 09:[address] ABDOMEN/PELVIS W/O CONTRAST [CT] Stat Exams 03/10/19 10:28 Completed BC [BLOOD CULTURE] [BLDCUL] Stat Lab 03/10/19 11:40 Received CBC WITH ELECTRONIC DIFF [HEME] Stat Lab 03/10/19 10:05 Completed COMPREHENSIVE METABOLIC PANEL [CHEM] Stat Lab 03/10/19 10:05 Completed LACTATE, PLASMA [CHEM] Stat Lab 03/10/19 11:40 Completed UA NIMS W/REFLEX CULT [URINALYSIS] Stat Lab 03/10/19 10:25 Completed Bisacodyl [Dulcolax] Med 03/10/19 12:15 Discontinued 10 mg NM NOW ONE CefTRIAXONE [Rocephin] 2 gm Med 03/10/19 11:09 Discontinued 0.9% Sodium Chloride Inj [Ns] 50 ml IV NOW Ketorolac [Toradol] Med 03/10/19 12:16 Discontinued 15 mg IV NOW ONE Result Diagrams: 03/10/19 10:05 03/10/19 10:05 - REASSESSMENT Reassessment #1 Time Reassessed: 12:54 Status: unchanged (remains stable in ER. no distress. has uti despite outpatient abx. discussed with hospitalist will admit observation) - CT/MRI 1 CT Study: Abdomen Impression: See EMR Report (IMPRESSION: 1. Severe constipation with severe rectal stool impaction. 2. Negative for renal stone disease. 3. Small right pleural effusion. COPD. This exam was performed using automated exposure control, adjustment of mA or kV according to patient size, and/or use of iterative reconstruction technique Electronically signed by Sancho Lincoln 03/10/2019 12:08 PM) - CONSULTS/PCP/HOSPITALIST Notification #1 *Consult/PCP/Hospitalist*: Dr. Mena Time Discussed: 12:52 Consult Disposition: Admit (for observation) Departure - Departure Date of Disposition Decision: 03/10/19 Time of Disposition Decision: 12:53 DIAGNOSIS: UTI (urinary tract infection) Disposition: ADMITTED INPATIENT 09 Certified Medical Emergency: Emergent Condition: Stable Referrals and Follow-Ups: Agata Frye MD [Primary Care Provider] - - Critical Care Note This patient required my direct & personal management of CC.: No Attestation - Physician/ FARZANEH Attestation Patient care was provided by Advanced Practice Provider:: No The physician spent face to face time with patient:: Yes Advanced Practice Provider documentation review:: Supervising physician onsite and consulted in the evaluation and care of this patient. The physician did have a face to face encounter with the patient. This chart was documented by the indicated scribe, (Beverly Byers, Josefina) and accurately reflects the services I performed and decisions made by me, Andrea Cortes MD, as attested by the provider's signature.
[2019-03-10] MEDS ORDERED: SODIUM CHLORIDE 0.9% INJ ONE (13:47)
[2019-03-10] MEDS: CLINIMIX E 4.25%-5% SOLUTION 1,000 ML IV SCH (15:29)
[2019-03-10] MEDS: NEXIUM IV SCH (16:05)
[2019-03-10] MEDS: ANUSOL-HC CREAM PR SCH (21:03)
[2019-03-10] MEDS: MIRALAX PO SCH (21:46)
[2019-03-10] MEDS: TIMOPTIC 0.25% OPH SOLUTION LEFT EYE SCH (21:46)
[2019-03-10] MEDS: DULCOLAX PR SCH (21:47)
[2019-03-10] MEDS: TEARISOL OPH SOLUTION BOTH EYES PRN (21:47)
[2019-03-10] MEDS: ANUSOL-HC SUPP PR SCH (21:47)
[2019-03-10] MEDS: RESTASIS 0.05% OPH DROPS BOTH EYES SCH (21:48)
--- NOTE | 2019-03-10 23:39 | HISTORY AND PHYSICAL ---
IP COUNSEL: Dr. Frye. CHIEF COMPLAINT: Abdominal pain and urinary symptoms. HISTORY OF PRESENT ILLNESS: Ms Pizarro is a 78-year-old female with a past medical history of tongue cancer with 35 radiation treatments this year and a recent lung biopsy that was inconclusive. She has also had a left leg DVT this year. She is on Eliquis. 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 She is taking methotrexate for that. She was recently in [facility] in February of 2019. She was there for back pain and urinary symptoms. She was discharged on 02/28/2019 to a rehab facility called [facility]. She states that on Tuesday this past week, she started having some burning and abdominal pain. She treated for a urinary tract infection. Family states that the patient also had pneumonia at some point and was treated with Levaquin. The patient presents to the ER with complaints of abdominal and back pain today. Patient does have a history of compression fracture of the T12 and was seen by Ortho on last admit to hospital. Urinalysis in the ER shows the patient has trace protein in her urine. She is positive for nitrites and also a large amount of leukocytes in her urine. Sodium in the ER is 135. Her BUN is 6 and creatinine is 0.4. White blood cell count is negative at 5. CT of the abdomen and pelvis was done that shows severe constipation with several rectal stone impactions. She does have a small right pleural effusion and some COPD is noted also. The patient is lying in the ER stretcher at the present time. She is complaining of some tenderness along her abdomen. She has a Stanford catheter in, her urine is noted to be an shari color and is clear. The patient denies any chest pain. She denies any burning with the urine at the present time. The patient is positive for abdominal and back pain. The patient is in no distress right now. She is on room air. She is able to move all extremities. The patient is awake, alert, and oriented. 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 She is on methotrexate. Tongue cancer this year 2018. She received 35 radiation treatments. She also had a biopsy that showed inconclusive. Left leg DVT on Eliquis, arthritis, osteopenia, diverticulosis, degenerative joint disease, spinal stenosis of L3, 4 and 5, T12 compression fracture. The patient was evaluated by Dr. Knutson. Hypertension, hypothyroidism. SURGICAL HISTORY: Recent tongue biopsy with inconclusive results, eye surgery and section. FAMILY HISTORY: Her mother had emphysema. Father had diabetes. Brother had diabetes. Denies any cancer in the family. SOCIAL HISTORY: The patient quit smoking 30 years ago but was a pack-a-day smoker for 10 years. She denies any alcohol or illicit drug abuse. She usually lives at home with her , but she has been staying at the [facility] facility since her last hospital admission. ALLERGIES: Codeine and prednisone. HOME MEDICATIONS: 1. Tylenol 325 mg p.o. q.6 hours p.r.n. 2. Colace 100 mg p.o. at bedtime. 3. Folic acid 1 mg p.o. t.i.d. 4. Levaquin 750 mg p.o. daily. 5. Levothyroxine 125 mcg p.o. daily. 6. Methotrexate 2.5 mg p.o. daily. 7. Prednisone acetate eyedrops 2 drops in both eyes daily. 8. Senna tablet 8.6 mg p.o. daily. REVIEW OF SYSTEMS: A 14 point review of systems has been completed. All are negative except what is stated above in the HPI. LABORATORY AND DIAGNOSTICS: White blood cell count 5.11, hemoglobin 10.6, hematocrit 32.9, platelet count 389,000. Sodium 135, potassium 3.8, BUN is 6, creatinine is 0.4, estimated GFR is greater than 60, glucose is 92, calcium is 8.9, AST 16, ALT is 6, alkaline phosphatase is 106. Plasma lactate is 1.1. Urinalysis shows trace protein, positive blood, positive nitrites, a small amount of bilirubin, urine leukocytes is large amount. Urine white blood cell count is TNTC. CT of the abdomen and pelvis shows severe constipation with severe rectal stone impaction. Negative for renal stone disease. Small right pleural effusion and COPD. PHYSICAL EXAMINATION: VITAL SIGNS: 98.2 degrees temperature, pulse rate 81, respiratory rate 12, blood pressure 150/63, O2 saturations 95% on room air. Weight 89 pounds, height 4 feet 11 inches. GENERAL: This is a 78-year-old female who is lying in the ER stretcher. She is in no acute distress at present time. HEENT: Atraumatic, normocephalic. Left pupil is regular, round, and reactive to light. The patient has had multiple surgeries on her right pupil and has uveitis. Unable to obtain anything from the right pupil. She is legally blind in this eye. Mucous membranes are moist. NECK: Supple with no lymphadenopathy. Trachea is midline. No JVD. CARDIOVASCULAR: Regular rate and rhythm with no murmurs, gallops, or rubs appreciated. S1, S2. RESPIRATORY: Lung sounds are clear with equal chest excursion. Respirations are nonlabored with no accessory muscle usage. GASTROINTESTINAL: Abdomen is soft, tender, and nondistended. Bowel sounds are present x4. GENITOURINARY: There is a Stanford catheter present in the bladder. Urine output is shair to color. It is clear in the catheter bag. NEUROLOGIC: Patient is awake, alert, and oriented. She is able to follow all commands with no difficulties noted. Cranial nerves 2-12 are intact. MUSCULOSKELETAL: Full distal strength noted. No abnormalities or deformities. She does have pain to her back that is noted. EXTREMITIES: There is no clubbing, or cyanosis or edema. DP and PT pulses are present and palpable. SKIN: Warm, dry, and intact. There are no rashes or bruises noted. No diaphoresis. ASSESSMENT AND PLAN: 1. Urinary tract infection. We will admit this patient to the medical floor. We placed this patient on IV fluid hydration and we started this patient on antibiotics of ceftriaxone 1 g daily. 2. Constipation. We have given this patient a Dulcolax suppository. The patient does have some hemorrhoids that are noted to her backside, so we have started this patient on Anusol suppositories and Anusol cream. 3. Dysphagia. The patient was having difficulty swallowing her medications and they placed her on a thickened diet at the rehab facility. We have ordered her a barium swallow study. We also consulted GI for her. We have had the patient NPO for this and we will start her on Clinimix, IV fluids for nutrition and hydration. 4. Hypothyroidism. We restarted this patient's Synthroid, but we are going to give it to her IV since we are holding all p.o. medications. 5. Uveitis. We have continued this patient oh her home eye drops. We will continue her medications to her eyes and we will start her back on her methotrexate as soon as we know this patient can swallow. 6. Deep venous thrombosis prophylaxis. We have started this patient on SCDs for DVT prophylaxis. 7. Gastrointestinal prophylaxis. We have started this patient on Nexium 40 mg IV q.12. We also have ordered a Dulcolax suppository to help with her constipation. We will admit this patient to the medical floor. GI will see this patient. We will continue IV antibiotics and fluid hydration. Repeat labs in the morning and observe this patient closely. Dictated by CEM Hirsch for Devi Mena MD cc: MD Agata Snyder MD I performed a face to face encounter on the patient. I reviewed all labs and imaging on the patient. I agree with the H&P as dictated. is a 78 year old female with a history of tongue cancer and recurrent pneumonia who was brought to the ER via EMS with a chief complaint of severe constipation and dysphagia. On exam, the patient was noted to be alert and oriented x 3. Her lungs were clear to auscultation bilaterally. The patient will be admitted for further treatment and evaluation. Will start IV fluids, laxatives and consult with GI. ERICK
[2019-03-11] MEDS: CLINIMIX E 4.25%-5% SOLUTION 1,000 ML IV SCH ×5 (01:59→18:18)
[2019-03-11] MEDS: NEXIUM IV SCH ×3 (02:08→15:35)
--- NOTE | 2019-03-11 06:41 | GASTROENTEROLOGY CONSULTATION ---
DATE: 03/10/2019 ATTENDING PHYSICIAN: Devi Mena MD PRIMARY CARE PHYSICIAN: Agata Frye MD REASON FOR CONSULTATION: Fecal impaction, dysphagia. HISTORY OF PRESENT ILLNESS: Ms. Pizarro is a 78-year-old female who was admitted on 03/10/2019 for lower abdominal pain, rectal pain and bladder pain. She was seen at [facility] a week ago with similar symptoms. She was diagnosed with UTI. She has been in the rehab since. She denies any nausea, vomiting or diarrhea. She has history of tongue cancer and has taken radiation recently. She has history of blood clots and she has been on Eliquis. She had imaging done in the hospital in the form of CT scan of the abdomen and pelvis, which showed (1) small right pleural effusion; (2) COPD; (3) severe diffuse constipation; (4) severe rectal stool impaction with stool ball measuring 8 cm; (5) Stanford catheter in urinary bladder; (6) significant calcified vascular disease; (7) moderate degenerate changes of the spine; (8) no acute or suspicious bony lesion. Gastroenterology is consulted for further management. The patient also complains of reflux disease and intermittent dysphagia which has also gotten worse recently since she has been constipated. PAST MEDICAL HISTORY: 1. Folic acid deficiency. 2. Overactive bladder. 3. Uveitis with blindness of right eye. She has been on methotrexate. 4. Tongue cancer this year in 2019. She received 35 radiation treatments. She also had a biopsy that was inconclusive. 5. Left lower extremity DVTs. She is on Eliquis. 6. Arthritis. 7. Osteopenia. 8. Diverticulosis. 9. Degenerative joint disease. 10. Spinal stenosis, L3, L4 and L5. PAST SURGICAL HISTORY: Recent tongue biopsy with inconclusive results; eye surgery; . SOCIAL HISTORY: She quit smoking 30 years ago. She was 4-zwiz-e-day smoker for 10 years. She denies any history of alcohol or illicit drug abuse. She lives at home with her and her sister. FAMILY HISTORY: Mother had emphysema. Father had diabetes. Brother had diabetes. ALLERGIES: Codeine, causing nausea and vomiting; prednisone in high doses causes psychosis. MEDICATIONS: In the hospital include Dulcolax; Clinimix, cyclosporine; Nexium, we will make it twice daily; hydrocortisone 2.5% cream per rectal b.i.d.; hydrocortisone suppository b.i.d.; Synthroid; MiraLAX twice daily; polyvinyl alcohol eyedrops; ceftriaxone; timolol. REVIEW OF SYSTEMS: Denies any fevers, rigors or chills. Does have a history of COPD. She is an ex-smoker. Does have recent history of tongue cancer, status post 35 rounds of radiation. Does have history of constipation and abdominal pain. Does have history of trouble swallowing. She does have history of arthritis. She denies any neurologic complaints. PHYSICAL EXAMINATION: Vital signs: Temperature of 98.2 degrees, pulse rate of 81, respiratory rate of 12, blood pressure 150/62, saturating 94% on room air. Body weight of 85 pounds 7 ounces. BMI 17.3 kg/m2. Generally the patient is thinly built, lying in bed, in no acute distress. HEENT: Pale conjunctivae. No icterus. Pupils equal and reactive to light. Neck is supple. Abdomen: Discomfort in the left side of the abdomen. No rebound or guarding. Extremities: No cyanosis or clubbing. Neurologic-alonso: Alert, awake. Answers questions. LABORATORY DATA: Her hemoglobin and hematocrit are 10.7 and 32.9, white count of 5.1, platelet count of 389,000. Sodium of 139, potassium 3.8, chloride 93, bicarbonate 29, anion gap 13, BUN of 6, creatinine 0.4, glucose of 92, calcium is 8.9, total bilirubin is 0.63, AST 16, ALT 6, alkaline phosphatase 106, total protein is 5.9, albumin of 3.4, lactate of 1.1. Urinalysis: Trace protein, trace blood, positive nitrite, small bilirubin, large leukocytes. Urine culture is pending. Blood cultures also have been drawn. They are currently pending. DIAGNOSTIC DATA: Abdominopelvic CT scan as described in HPI. IMPRESSION AND PLAN: 1. Fecal impaction. 2. Dysphagia. 3. Anemia. 4. Recent history of tongue cancer status post 35 rounds of radiation. 5. Urinary tract infection. 6. Right pleural effusion and chronic obstructive pulmonary disease. RECOMMENDATIONS: 1. We will start on MiraLAX twice daily. We will start on soapsuds enemas twice daily. She will continue on Dulcolax per rectal at bedtime. We will continue on Nexium twice daily. She is on hemorrhoidal cream and suppository per the primary care team. 2. She is on ceftriaxone. One dose was given for UTI. Urine culture and blood culture have been ordered. 3. She has been ordered a barium swallow study on Tuesday. 4. We will continue to follow along. The above plan was discussed with the patient and family at bedside. All questions answered. Please call us with any further questions. cc: MD Devi Curtis MD Marlin D. Gill, MD MTDD
[2019-03-11] MEDS ORDERED: NEXIUM IV SCH (07:00)
[2019-03-11 07:59] LABS: AGAP 9; ALBUMIN 2.8 g/dL (3.5-5.0); ALKALINE PHOSPHATASE 84 U/L (32-104); BUN 15 mg/dL (8-22); CALCIUM 8.4 mg/dL (8.8-10.2); CHLORIDE 95 mmol/L (98-107); COSMO 270; CREATININE 0.3 mg/dL (0.5-0.9); ESTIMATED GFR > 60; GLUCOSE 147 mg/dL (70-104); GOT 9 U/L (10-30); GPT < 5 U/L (10-36); SODIUM 133 mmol/L (136-145); TCO2 29 mmol/L (25-35); TOTAL BILIRUBIN 0.49 mg/dL (0.20-1.00); TOTAL PROTEIN 5.7 g/dL (6.3-8.3)
[2019-03-11 08:13] LABS: BASO# 0.01 X1000 (0.0-0.2); BASO% 0.2 % (0.0-0.8); EOS# 0.07 X1000 (0.0-0.7); EOS% 1.1 % (0.0-10.0); HEMOGLOBIN 9.3 g/dL (12.0-16.0); IMM GRAN# 0.11 X1000 (0.0-0.04); IMM GRAN% 1.7 % (0.0-0.5); LYMPH# 0.34 X1000 (1.2-3.4); LYMPH% 5.3 % (20.5-51.1); MCH 29.4 PG (27-31); MCHC 32.1 g/dL (33-37); MCV 91.8 FL (81-99); MONO# 0.12 X1000 (0.11-0.59); MONO% 1.9 % (1.7-9.3); MPV 7.8 FL (7.4-10.4); NEUT% 89.8 % (42.2-75.2); PLT 374 X1000 (130-400); RBC 3.16 XMIL (4.2-5.4); RDW 15.4 % (11.5-14.5); WBC 6.45 X1000 (4.8-10.8)
[2019-03-11 09:23] LABS: BANDS 2 % (0-1); LYMPHS 6 % (21-51); MONO 4 % (1-9); SEGS 84 % (42-75)
[2019-03-11] MEDS: SYNTHROID IV SCH ×3 (11:00→18:02)
[2019-03-11] MEDS: RESTASIS 0.05% OPH DROPS BOTH EYES SCH ×2 (11:06→21:17)
[2019-03-11] MEDS: ANUSOL-HC SUPP PR SCH ×2 (11:06→21:18)
[2019-03-11] MEDS: MIRALAX PO SCH ×2 (11:07→21:17)
[2019-03-11] MEDS: ANUSOL-HC CREAM PR SCH ×2 (11:08→21:00)
[2019-03-11] MEDS: TIMOPTIC 0.25% OPH SOLUTION LEFT EYE SCH ×2 (11:08→21:17)
[2019-03-11] MEDS: TEARISOL OPH SOLUTION BOTH EYES PRN ×2 (11:08→21:17)
[2019-03-11] MEDS: ROCEPHIN 1 GM in NS 50 ML IV SCH (11:09)
[2019-03-11] MEDS: MORPHINE IV PRN (15:36)
--- NOTE | 2019-03-11 17:59 | GASTROENTEROLOGY PROGRESS NOTE ---
DATE: 03/11/2019 SUBJECTIVE: Patient Is resting in bed. Her family is present at bedside. The patient had a small, hard, brown stool with some bright red blood today. She has been on soapsuds enemas. Her abdominal pain has improved. She does complain of some dry heaving. She denies any vomiting blood. She is scheduled for a barium swallow tomorrow. OBJECTIVE: Vital Signs: Temperature 98 degrees, pulse of 77, respiratory rate 18, blood pressure 130/43, saturating 100% on room air. Body weight of 85 pounds 7 ounces. BMI of 17.3 kg. General Appearance: Thinly built, lying in bed, in no acute distress. HEENT: Pale. No icterus. Neck: Supple. Abdomen: Soft. Mild discomfort in left lower quadrant. No rebound or guarding. Extremities: No cyanosis or clubbing. Neurologic: She is awake, alert, and answers questions. HEENT: She is blind in the right eye. Some uveitis. LABORATORY DATA: Hemoglobin and hematocrit are 9.3 and 29, white count of 6.45, platelet count of 374,000. Sodium of 133, potassium of 4, chloride 95, bicarb 29, anion gap 9, BUN of 15, creatinine 0.3, glucose of 147, calcium 8.4, total bilirubin is 0.49, AST 9, ALT less than 5, alkaline phosphatase 84, total protein is 5.7, albumin of 2.8. Urine culture preliminary showing no growth. Blood cultures x2 were drawn, and they are currently pending. IMPRESSION AND PLAN: 1. Urinary tract infection. She is on IV fluids and ceftriaxone per the primary team. She has been breen cultured. We will follow up the final report of blood cultures. 2. Constipation. She is on Dulcolax suppository. We will keep her on soapsuds enema twice daily. We will start her on MiraLAX twice daily. We will start her on clear liquid diet today. 3. Dysphagia. She has had trouble swallowing her medications in the past. We will follow up on the results of the barium swallow study which is scheduled for tomorrow, and we will go from there. She may eventually need EGD at some point. 4. Malnutrition. She has low albumin. She will continue IV fluids and IV Clinimix for now. We will start her on Ensure Clear 3 times daily. 5. Uveitis. Continue as per primary team. 6. Hypothyroidism. She is on Synthroid. 7. Deep vein thrombosis, SCDs. 8. Gastrointestinal prophylaxis, PPIs. We will follow. Nexium twice daily. 9. Hemorrhoids. She will continue on hydrocortisone suppository and cream. 10. See above. The patient and family all questions answered. Please call us with any further questions. cc: MD Devi Curtis MD
--- NOTE | 2019-03-11 18:12 | PROGRESS NOTE ---
DATE: 03/11/2019 SUBJECTIVE: The patient complains of rectal pain home. She has started to have bowel movements. OBJECTIVE: Vital Signs: Temperature 99.3 degrees, blood pressure 129/39, heart rate 91, respirations 20, O2 saturations 98% on room air. General: This is a chronically ill-appearing elderly female lying in bed in no acute distress. Heart: S1, S2 normal. Regular rate and rhythm. Lungs: Equal air entry bilaterally. No wheezing, no rales. No rhonchi. Abdomen: Positive bowel sounds. Soft, nontender, nondistended. Extremities: No edema, no cyanosis. Neuro: The patient is alert and oriented x3. LABS: White blood cell count 6.4, hemoglobin 9.3, hematocrit 29, platelets 374,000. Sodium 133, potassium 4, chloride 95, CO2 29, BUN 15, creatinine 0.3, glucose 147. ASSESSMENT AND PLAN: 1. Dysphagia. The patient is scheduled to undergo a modified barium swallow tomorrow. Will continue on Clinimix for now. 2. Severe constipation with fecal impaction. The patient has started to have bowel movements. Continue on the current laxative regimen. 3. Urinary tract infection. So far the urine culture is showing no growth. Continue on Rocephin 4. Chronic obstructive pulmonary disease. Stable. 5. Anemia. Stable. 6. Hypothyroidism. Continue on Synthroid. 7. Gastrointestinal prophylaxis. Continue on Nexium. 8. Deep vein thrombosis prophylaxis. Continue with SCDs. cc: Devi Mena MD MTDD
[2019-03-11] MEDS: DULCOLAX PR SCH (21:18)
[2019-03-12] MEDS: SODIUM CHLORIDE 0.9% INJ SCH ×2 (03:00→15:03)
[2019-03-12] MEDS: NEXIUM IV SCH ×2 (03:01→15:03)
[2019-03-12] MEDS: MORPHINE IV PRN ×3 (03:29→21:57)
--- NOTE | 2019-03-12 07:05 | Diag Imaging Result Doc PS360 ---
EXAM: ABDOMEN FLAT/UPRIGHT 03/12/2019 HISTORY: constipation TECHNIQUE: AP portable flat and upright abdomen at 0550 COMMENT: There is gas and stool in the colon. The stomach and small bowel are not distended. There are apparent injection granulomata over the right buttock. There is no evidence of organomegaly or mass. There is apparent fecal impaction in the rectum. IMPRESSION: Constipation. Electronically signed by Wellington Salmon 03/12/2019 7:03 AM
[2019-03-12 08:03] LABS: HEMATOCRIT 27.4 % (37.0-47.0); HEMOGLOBIN 8.6 g/dL (12.0-16.0); MCHC 31.4 g/dL (33-37); MCV 92.3 FL (81-99); MPV 7.9 FL (7.4-10.4); RBC 2.97 XMIL (4.2-5.4); RDW 15.4 % (11.5-14.5); WBC 5.85 X1000 (4.8-10.8)
[2019-03-12 08:18] LABS: AGAP 10; BUN 15 mg/dL (8-22); CALCIUM 8.6 mg/dL (8.8-10.2); CHLORIDE 96 mmol/L (98-107); COSMO 270; CREATININE 0.4 mg/dL (0.5-0.9); ESTIMATED GFR > 60; GLUCOSE 113 mg/dL (70-104); POTASSIUM 3.9 mmol/L (3.5-5.1); SODIUM 134 mmol/L (136-145); TCO2 28 mmol/L (25-35)
[2019-03-12] MEDS: ANUSOL-HC CREAM PR SCH ×2 (08:25→22:07)
[2019-03-12] MEDS: MIRALAX PO SCH ×2 (08:26→22:00)
[2019-03-12] MEDS: SYNTHROID IV SCH (08:26)
[2019-03-12] MEDS: ANUSOL-HC SUPP PR SCH ×2 (08:26→22:07)
[2019-03-12] MEDS: TIMOPTIC 0.25% OPH SOLUTION LEFT EYE SCH ×2 (08:27→21:59)
[2019-03-12] MEDS: RESTASIS 0.05% OPH DROPS BOTH EYES SCH ×2 (08:32→22:07)
--- NOTE | 2019-03-12 11:34 | Diag Imaging Result Doc PS360 ---
EXAM: BA SWALLOW W/VIDEO SPEECH THER 03/12/2019 HISTORY: dysphagia TECHNIQUE: 25 images, 50 seconds fluoroscopy time, 14 mGy. COMMENT: No aspiration was demonstrated during fluoroscopy. The initial swallows are not available currently on the PACS. There was some suggestion of cricopharyngeal achalasia. There are no definite abnormalities demonstrated in the thoracic esophagus. IMPRESSION: Cricopharyngeal achalasia. Electronically signed by Wellington Salmon 03/12/2019 11:32 AM
--- NOTE | 2019-03-12 11:38 | Diag Imaging Result Doc PS360 ---
EXAM: FLAT/UPRIGHT ABD/1 VIEW CHEST 03/12/2019 HISTORY: constipation/dyspnea TECHNIQUE: Flat and upright abdomen with AP chest COMMENT: There is contrast in the stomach and proximal small bowel including portions of the jejunum. There is gas and stool in the colon. There is stool in the rectum. There is no evidence of organomegaly or mass. There is some ill-defined opacity in the mid and lower lung field on the right. This was also the case on 02/27/2019 but not on 01/04/2019. IMPRESSION: Mild constipation. Bronchopneumonia on the right. Electronically signed by Wellington Salmon 03/12/2019 11:36 AM
[2019-03-12] MEDS: ROCEPHIN 1 GM in NS 50 ML IV SCH (12:07)
[2019-03-12] MEDS ORDERED: ZYVOX 600 MG/D5W 600 MG/300 ML IVPB IV SCH (12:15)
[2019-03-12] MEDS: MAXIPIME 2 GM in NS 100 ML IV SCH (13:44)
--- NOTE | 2019-03-12 15:23 | PROGRESS NOTE ---
DATE: 03/12/2019 SUBJECTIVE: The patient is resting comfortably in bed. No acute events noted overnight. OBJECTIVE: Vital Signs: Temperature 98.2 degrees, blood pressure 132/55, heart rate 86, respirations 18, and O2 saturation 96% on room air. General: This is a chronically ill-appearing elderly female lying in bed in no acute distress. Heart: S1, S2. Normal. Lungs: Equal air entry bilaterally. No wheezing. No rales. No rhonchi. Abdomen: Positive bowel sounds. Soft, nontender, and nondistended. Extremities: No edema. No cyanosis. Neurologic: The patient is alert and oriented x3. LABORATORY: White blood cell count 5.8, hemoglobin 8.6, hematocrit 27, and platelets 373,000. Sodium 134, potassium 3.9, chloride 96, CO2 28, BUN 15, creatinine 0.4, and glucose 113. Abdominal x-ray shows mild constipation. Pneumonia on the right. ASSESSMENT AND PLAN: 1. Pneumonia. We will switch the patient to cefepime. Will also order a CT of the thorax. 2. Cricopharyngeal achalasia. Management as per GI. 3. Constipation. Continue on the scheduled laxative regimen. 4. Chronic obstructive pulmonary disease. Stable. 5. Anemia. Stable. 6. Hypothyroidism. Continue on Synthroid. 7. Gastrointestinal prophylaxis. Continue on Nexium. 8. Thoracic compression spine. Continue with back brace. 9. Deep vein thrombosis prophylaxis. Continue with SCD's. We will also consult physical therapy. cc: MD ERICK Snyder
--- NOTE | 2019-03-12 15:29 | GASTROENTEROLOGY PROGRESS NOTE ---
DATE: 03/12/2019 SUBJECTIVE: The patient is resting in bed. Her son was at the bedside. The patient is feeling better. Her nausea is improving. Her abdominal pain is improving. She moved her bowels. She is scheduled for a barium swallow today. PHYSICAL EXAMINATION: Vital Signs: Temperature of 98.5 degrees, pulse rate of 87, respiratory rate of 18, blood pressure 120/53, saturating 98% on room air. Body weight of 85 pounds, 7 ounces. BMI of 17.3 kg/m2. General Appearance: Thinly built, lying in bed, in no acute distress. HEENT: Pale conjunctivae. No icterus. She is blind in the right eye from Uveitis. Neck: Supple. Abdomen: Soft. Discomfort in the left lower quadrant. No rebound. Extremities: No cyanosis, clubbing. Neurologic: She is alert, awake, oriented to time, place, and person. LABORATORY DATA: Hemoglobin and hematocrit are 8.6 and 27.4, white count of 5.85, platelet count of 373,000. Sodium 134, potassium 3.9, chloride 96, bicarb 20, anion gap 10, BUN of 15, creatinine 0.4, glucose of 113, calcium is 8.6. Her blood cultures were negative after 48 hours x2. Urine culture negative. Abdominal x-ray done this morning showed gas and stool in the colon. There is apparent fecal impaction in the rectum. IMPRESSION AND PLAN: 1. Urinary tract infection. She is on ceftriaxone per the primary care team. 2. Constipation with fecal impaction. We will continue MiraLAX 17 g twice a day. We will increase the Dulcolax to twice daily. We will continue on soapsuds enema twice daily. We will start her on a full liquid diet and if her symptoms of impaction persists despite the laxatives, then she may need a flexible sigmoidoscopy. 3. Dysphagia. We will follow up the results of the barium swallow, which is scheduled today. 4. Malnutrition. She is on intravenous Clinimix. We will start her on Ensure and a full liquid diet. 5. Uveitis, being managed by the primary care team. 6. Hypothyroidism. She is on Synthroid. 7. Deep venous thrombosis prophylaxis with sequential compression devices. 8. Gastrointestinal prophylaxis. Proton pump inhibitors, Nexium twice daily. 9. Anemia. Continue to watch for now and transfuse as needed. 10. Hemorrhoids. She is on hydrocortisone suppository and cream. 11. The above plans were discussed with the patient and family at bedside. All questions were answered. Please call us with any further questions. cc: MD Agata Curtis MD MTDD
--- NOTE | 2019-03-12 15:55 | Diag Imaging Result Doc PS360 ---
EXAM: CT THORAX W/O CONTRAST INDICATION: pneumonia TECHNIQUE: This exam was performed using automated exposure control, adjustment of mA or kV according to patient size, and/or use of iterative reconstruction technique. COMPARISON: None. FINDINGS: There is a small right pleural effusion and right basilar atelectasis. There is patchy infiltrate in the perihilar region on the right involving the upper, middle, and lower lobes with tree-in-bud opacities indicating pneumonia and bronchiolitis. There is mild peripheral scarring at the lung apices bilaterally. There is no pneumothorax. There is no cardiomegaly. There is prominence of the right hilum and a few borderline and mildly prominent mediastinal lymph nodes, nonspecific but probably reactive. Limited views of the upper abdomen are essentially unremarkable. There is mild ventral marginal osteophyte formation at several thoracic levels. There is no evidence of acute osseous abnormality. IMPRESSION: 1.Right perihilar infiltrate with tree-in-bud opacities suggesting pneumonia and bronchiolitis. 2.Mildly prominent right hilum and several borderline and mildly prominent lymph nodes that are nonspecific but probably reactive. Electronically signed by Smooth Guadalupe 03/12/2019 3:52 PM
[2019-03-12] MEDS: CLINIMIX E 4.25%-5% SOLUTION 1,000 ML IV SCH (18:17)
[2019-03-12] MEDS ORDERED: VANCOMYCIN IV PER PHARMACY MISC SCH (19:15)
[2019-03-12] MEDS: DULCOLAX PR SCH (22:07)
[2019-03-12] MEDS: VANCOMYCIN 1,000 MG in NS 250 ML IV SCH (22:08)
[2019-03-13] MEDS: MORPHINE IV PRN ×2 (01:50→07:46)
[2019-03-13] MEDS: CLINIMIX E 4.25%-5% SOLUTION 1,000 ML IV SCH ×2 (01:50→14:36)
[2019-03-13] MEDS: MAXIPIME 2 GM in NS 100 ML IV SCH (02:33)
[2019-03-13] MEDS: NEXIUM IV SCH ×2 (05:16→16:32)
[2019-03-13 06:49] LABS: AGAP 8; BUN 9 mg/dL (8-22); CALCIUM 7.6 mg/dL (8.8-10.2); CHLORIDE 102 mmol/L (98-107); COSMO 272; CREATININE 0.3 mg/dL (0.5-0.9); ESTIMATED GFR > 60; GLUCOSE 123 mg/dL (70-104); POTASSIUM 3.9 mmol/L (3.5-5.1); SODIUM 136 mmol/L (136-145); TCO2 26 mmol/L (25-35)
[2019-03-13] MEDS: MIRALAX PO SCH ×2 (08:27→20:36)
[2019-03-13] MEDS: ANUSOL-HC SUPP PR SCH ×2 (08:28→20:41)
[2019-03-13] MEDS: DULCOLAX PR SCH ×2 (08:28→20:42)
[2019-03-13] MEDS: SYNTHROID IV SCH (08:29)
[2019-03-13] MEDS: TEARISOL OPH SOLUTION BOTH EYES PRN (08:36)
[2019-03-13] MEDS: ANUSOL-HC CREAM PR SCH ×2 (08:37→20:41)
[2019-03-13] MEDS: TIMOPTIC 0.25% OPH SOLUTION LEFT EYE SCH ×2 (08:37→20:42)
[2019-03-13] MEDS: RESTASIS 0.05% OPH DROPS BOTH EYES SCH ×2 (10:27→20:42)
--- NOTE | 2019-03-13 10:50 | PROVIDER PROGRESS NOTE ---
Progress Note S: Patient reports worsening lower abdominal pain. No N/V, and tolerating GI soft diet. She has been receiving suppositories and RN did PRADEEP. Both were extremely painful to patient. No rectal bleeding. She has passing small liquid stools. O: Last Vital Signs Temp 98.4 F 03/13/19 08:00 Pulse 84 03/13/19 08:00 Resp 16 03/13/19 08:00 BP 149/48 03/13/19 08:00 Pulse Ox 97 03/13/19 04:00 Height 4 ft 11 in Weight 85 lb 7 oz GEN: thin, awake, alert, NAD HEENT: EOMI, MMM NECK: supple, no JVD PULM: normal WOB CV: RRR, no murmurs ABD: soft, ND, minimal TTP lower abdomen, no rebound or guarding EXT: no cce NEURO: moving all extremities symmetrically LABS: 03/13/19 06:08 Sodium 136 Potassium 3.9 Chloride 102 Carbon Dioxide 26 Anion Gap 8 BUN [address] chest 03/12 IMPRESSION: 1.Right perihilar infiltrate with tree-in-bud opacities suggesting pneumonia and bronchiolitis. 2.Mildly prominent right hilum and several borderline and mildly prominent lymph nodes that are nonspecific but probably reactive. A/P: Ms. Fina Pizarro is a 78 year old woman who was admitted from [place] with abdominal pain found to have fecal impaction and UTI. She has not had a bowel movement since admission despite bowel regimen, enemas, and suppositories. She also reports perianal pain associated with PRADEEP and [place] medications. Will plan for diagnostic sigmoidoscopy for interoperative disimpaction under anesthesia given pain. She was diagnosed with PNA also. ID following. In regards to her dyspha yajaira, she is tolerating GI soft diet. Will plan to do EGD as well since patient is receiving anesthesia # Fecal impaction: diagnostic sigmoidoscopy tomorrow # Dysphagia: may be related to prior radiation; on GI soft diet, dysphagia precautions; diagnostic EGD tomorrow, continue PPI; hold off on MBS for now # Malnutrition: on clinimix; continue ensures with meals # UTI: on bax # PNA: on abx per ID # Hemorrhoids: continue topical therapy # History of tongue cancer: s/p radiation Will follow with you. Please call with questions
[2019-03-13 11:21] LABS: INR 1.09
--- NOTE | 2019-03-13 13:38 | INFECTIOUS DISEASE CONSULT REP ---
DATE: 03/13/2019 CONCLUSION: The patient has a right perihilar pneumonia. The patient has an immunoglobulin deficiency. RECOMMENDATIONS: I agree with treating the patient with cefepime and vancomycin. This is day 1 of treatment with both of these agents. I have decreased the dose of cefepime to 1 g IV every 12 hours because the patient weighs only 85 pounds. I ordered IVIG for the patient's immunoglobulin deficiency. DISCUSSION: I am unable to get a history from the patient, and her sister did not know a lot about the patient's medical condition. The information I obtained was from the computer. The patient was admitted to the hospital with abdominal pain and urinary symptoms. The patient was not coughing when I saw her this morning, and she did not appear to be dyspneic. DIAGNOSTIC STUDIES: CBC shows a white count of 5850, hemoglobin 8.6, platelet count 373,000. Creatinine is 0.3, GFR is greater than 60. Liver function studies are normal. Blood and urine cultures are negative. CT scan of the chest shows a right perihilar infiltrate. CT scan of the abdomen and pelvis shows constipation, rectal impaction, COPD. ALLERGIES: The patient's allergies include Zyvox manifested by itching, and with codeine and prednisone, the patient has an adverse reaction consisting of nausea and vomiting. HOME MEDICATIONS: Include the following: Cyclosporine, Colace, Levaquin, Synthroid, methotrexate, senna, timolol maleate eyedrops, and Detrol LA. 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 PAST SURGICAL HISTORY: Positive for tongue biopsy with inconclusive results, eye surgery, and section. FAMILY HISTORY: Positive for emphysema and diabetes. SOCIAL HISTORY: The patient had stopped smoking 30 years ago. She does not drink alcoholic beverages or abuse drugs. She lives with her , but since her last hospital admission, she has been at [facility] [place] rehabilitation facility. PHYSICAL EXAMINATION: Vital Signs: Temperature is 98.4 degrees, pulse respirations 16, blood pressure 149/48. Height/Weight: This patient is 4 feet 11 inches tall and weighs 85 pounds. General: This is a chronically ill- and malnourished-appearing, elderly female. She is in no acute distress. Head, Eyes, Ears, Nose, and Throat: She can hear my spoken words. She can see near objects with her left eye. The patient's right eye is opacified. Neck: No meningismus. Lungs: Clear to auscultation. Cardiovascular: Heart rate is regular. Abdomen: Soft, nontender. Back: Over the sacral area, there is some erythema. Neurologic: Patient is awake. She can move her extremities. There is no tremor. The patient's sensation is intact to touch. Thank you for the consult you. cc: Julio Cesar Sultana MD MTDD
[2019-03-13] MEDS ORDERED: NS 250 ML ONE (13:44)
[2019-03-13] MEDS: MAXIPIME 1 GM in NS 50 ML IV SCH (14:36)
--- NOTE | 2019-03-13 15:46 | PROGRESS NOTE ---
DATE: 03/13/2019 SUBJECTIVE: The patient is resting comfortably. She continues to complain of abdominal pain and fullness. She is scheduled for endoscopy tomorrow. OBJECTIVE: Vital Signs: Temperature 98.4 degrees, blood pressure 149/48, heart rate 84, respirations 16, O2 saturation 98% on room air. General: This is a chronically ill-appearing elderly female, lying in bed in no acute distress. Heart: S1, S2 normal. Regular rate and rhythm. Lungs: Equal air entry. Abdomen: Positive bowel sounds. Soft, nontender, nondistended. Extremities: No edema. No cyanosis. No calf tenderness. Neurologic: The patient is alert and oriented x4. No focal neurologic deficits noted. LABS: INR 1. Sodium 136, potassium 3.9, chloride 102, CO2 26. BUN 9, creatinine 0.3, glucose 123. ASSESSMENT AND PLAN: 1. Right lobe pneumonia. Continue on cefepime and vancomycin. Dr. Sultana is following. 2. Immunoglobulin deficiency. Dr. Sultana has ordered IVIG therapy for the patient. 3. Cricopharyngeal achalasia. Aware. Gastroenterology is following. 4. Chronic constipation with abdominal pain. The patient is scheduled for endoscopy tomorrow. 5. Chronic obstructive pulmonary disease. Stable. Continue with bronchodilator therapy. 6. Hypothyroidism. Continue on Synthroid. 7. Thoracic compression fracture. The patient has a back brace. 8. Gastrointestinal prophylaxis. Continue on Nexium. 9. Deep vein thrombosis prophylaxis. Continue with sequential compression devices and physical therapy. cc: Devi Mena MD MTDD
[2019-03-13] MEDS: DILAUDID IV PRN ×2 (16:32→20:36)
[2019-03-13] MEDS: VANCOMYCIN 1,000 MG in NS 250 ML IV SCH (20:43)
[2019-03-13 21:27] LABS: MAGNESIUM 1.9 mg/dL (1.5-2.7); POTASSIUM 3.9 mmol/L (3.5-5.1)
--- NOTE | 2019-03-14 00:31 | EKG Report ---
Test Performed on : 03/13/2019 8:59:48 PM Test Reason : Runs of V-Tach Blood Pressure : / mmHG Vent. Rate : 083 BPM Atrial Rate : 083 BPM P-R Int : 152 ms QRS Dur : 100 ms QT Int : 344 ms P-R-T Axes : 064 056 010 degrees QTc Int : 404 ms Normal sinus rhythm. Low voltage QRS Incomplete right bundle branch block Septal infarct , age undetermined Abnormal ECG When compared with ECG of 26-FEB-2019 09:40, Incomplete right bundle branch block has replaced Right bundle branch block Septal infarct is now present Confirmed by Eddi Rod MD ([id number]) on 03/14/2019 9:08:22 AM
[2019-03-14] MEDS: MAXIPIME 1 GM in NS 50 ML IV SCH ×2 (01:58→15:06)
[2019-03-14] MEDS: CLINIMIX E 4.25%-5% SOLUTION 1,000 ML IV SCH ×3 (01:59→14:50)
[2019-03-14] MEDS: DILAUDID IV PRN ×4 (02:06→22:06)
[2019-03-14] MEDS: ZOFRAN IV PRN ×2 (02:21→19:46)
[2019-03-14] MEDS: NEXIUM IV SCH ×2 (02:30→17:55)
[2019-03-14 05:54] LABS: HEMATOCRIT 23.9 % (37.0-47.0); HEMOGLOBIN 7.5 g/dL (12.0-16.0); MCH 29.6 PG (27-31); MCHC 31.4 g/dL (33-37); MCV 94.5 FL (81-99); MPV 7.8 FL (7.4-10.4); RBC 2.53 XMIL (4.2-5.4); RDW 15.7 % (11.5-14.5); WBC 5.42 X1000 (4.8-10.8)
[2019-03-14 06:12] LABS: AGAP 11; BUN 11 mg/dL (8-22); CALCIUM 8.5 mg/dL (8.8-10.2); CHLORIDE 97 mmol/L (98-107); COSMO 267; CREATININE 0.3 mg/dL (0.5-0.9); ESTIMATED GFR > 60; GLUCOSE 119 mg/dL (70-104); POTASSIUM 3.8 mmol/L (3.5-5.1); SODIUM 133 mmol/L (136-145); TCO2 25 mmol/L (25-35)
[2019-03-14] MEDS ORDERED: DIPRIVAN 1% ONE (07:44)
[2019-03-14] MEDS ORDERED: XYLOCAINE-MPF 2% ONE (07:45)
--- NOTE | 2019-03-14 09:24 | ENDOSCOPY OPERATIVE NOTE ---
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 PROCEDURE PERFORMED: EGD w/ biopsy MEDICATIONS: Per Anesthesia TOPICAL ANESTHETIC: none CONSENT: The patient understands the risks and benefits of the procedure and understands that these r isks include, but are not limited to: sedation, allergic reaction, infection, perforation and/or bleeding. Alternative means of evaluation and treatment include, among others: physical exam, x-rays, and/or surgical intervention. The patient elects to proceed with this endoscopic procedure. HISORY AND PHYSICAL: 03/14/2019 function. Hand hygiene and appropriate measures for infection prevention was taken. After the risks, benefits and alternatives of the procedure were thoroughly explained, Informed consent was verified, confirmed and timeout was successfully executed by the treatment team. The patient was anesthetized with topical anesthesia and the Pentax EG-[id number] endoscope was introduced through the mouth and advanced to the second portion of the duodenu m. Retroflexion was performed in the stomach and revealed a hiatal hernia. The gastroscope was then slowly withdrawn and removed. ESOPHAGUS: A Schatzki ring was found at the gastroesophageal junction and 35 cm from the incisors and was widely open. Esophagitis was found at the gastroesophageal junction. Esophagitis was LA Class B: One or more muco noble breaks > 5mm, but without continuity across mucosal folds. A biopsy was performed using cold forceps. Sample sent for histology. A 4 cm hiatal hernia was noted. STOMACH: The stomach was normal. DUODENUM: The duodenum was normal. SPECIMENS REMOVED: Yes ADVERSE EVENTS: There were no complications. POSTOPERATIVE DIAGNOSIS: 1. Schatzki ring was found at the gastroesophageal junction and 35 cm f rom the incisors 2. Esophagitis at the gastroesophageal junction; biopsy was performed 3. The stomach was normal 4. The duodenum was normal RECOMMENDATIONS: 1. Await biopsy results 2. Start PPI PO BID 3. Proceed with sigmoidoscopy REPEAT EXAM: Angel Luis Cartwright MD eSigned: Angel Luis Cartwright MD 03/14/2019 10:16 AM Revised: 03/14/2019 10:16 AM cc: PATIENT NAME: Fina Pizarro MR#: [id number]
--- NOTE | 2019-03-14 09:34 | ENDOSCOPY OPERATIVE NOTE ---
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 PROCEDURE PERFORMED: Sigmoidoscopy, diagnostic MEDICATIONS: Per Anesthesia PREP TYPE: NPO PREP QUALITY: The overall prep quality was adequate. ESTIMATED BLOOD LOSS: None CONSENT: The patient understands the risks and benefits of the procedure and understands that these r isks include, but are not limited to: sedation, allergic reaction, infection, perforation and/or bleeding. Alternative means of evaluation and treatment include, among others: physical exam, x-rays, and/or surgical intervention. The patient elects to proceed with this endoscopic procedure. HISTORY AND PHYSICAL: 03/14/2019 proper function. Hand hygiene and appropriate measures for infection prevention was taken. After the risks, benefits and alternatives of the procedure were thoroughly explained, Informed consent was verified, confirmed and timeout was successfully executed by the treatment team. A digital exam revealed no abnormalities of the perianal region. However, there was a large rectal stool ball found that was disimpacted via digital rectal exam. The colonosc ope was introduced through the anus and advanced to 60cm from anal verge. The instrument was then slowly withdrawn as th e colon was fully examined. COLON FINDINGS: A large amount of solid and liquid brown stool was found throughout the sigmoid and d escending colon. Irrigation was performed with 1.5L of water throughout the left colon. There was diverticulosis not ed in the sigmoid colon. Retroflexion was not performed. The scope was then completely withdrawn from the patient and t he procedure terminated. No luminal or obstructing lesions were found. SPECIMENS REMOVED: No ADVERSE EVENTS: There were no complications. POSTOPERATIVE DIAGNOSIS: 1. A large amount of solid and liquid brown stool was found throughout the sigmoid and descending colon. Irrigation was performed with 1.5L of water throughout the left colon 2. Diverticulosis was noted in the sigmoid colon 3. Rectal fecal impaction RECOMMENDATIONS: 1. Advance diet as tolerated 2. Continue Miralax 17mg BID PO for constipation 3. Advance diet as tolerated 4. Avoid constipating medications 5. Augment water intake RECALL: Angel Luis Cartwright MD eSigned: Angel Luis Cartwright MD 03/14/2019 9:34 AM cc: PATIENT NAME: Fina Pizarro MR#: [id number]
--- NOTE | 2019-03-14 10:00 | Diag Imaging Result Doc PS360 ---
EXAM: CHEST-PORTABLE 03/14/2019 HISTORY: going to rehab TECHNIQUE: AP upright portable at 0939 COMMENT: The inspiration is less optimal than on 03/12/2019. There is a PICC line on the right with its tip in the right atrium. There is some fullness of the gosia particularly the right hilum. Overall there has been no appreciable change considering differences in inspiration since 03/12/2019. IMPRESSION: Stable chest. Electronically signed by Wellington Salmon 03/14/2019 9:58 AM
[2019-03-14] MEDS: SYNTHROID IV SCH (10:46)
[2019-03-14] MEDS: MIRALAX PO SCH ×2 (10:47→23:08)
[2019-03-14] MEDS: ANUSOL-HC SUPP PR SCH ×2 (10:52→23:07)
[2019-03-14] MEDS: DULCOLAX PR SCH ×2 (10:52→23:07)
[2019-03-14] MEDS: NS 250 ML IV SCH (12:44)
[2019-03-14] MEDS: GAMUNEX-C 10% IV SCH (12:47)
--- NOTE | 2019-03-14 14:01 | INFECTIOUS DISEASE PROGRESS NO ---
DATE: 03/14/2019 PRESENT ILLNESS: Ms. Pizarro is being treated for a right perihilar pneumonia. She also has an immunoglobulin deficiency. MEDICATIONS: She is receiving cefepime 1 g IV every 12 hours and IV vancomycin per pharmacy dosing for her pneumonia. She is also currently receiving a dose of IV gammaglobulin. PHYSICAL EXAMINATION: Vital Signs: Temperature is 98.7 pulse rate 89, respiratory rate 16, blood pressure 131/36. O2 saturation is 98% on room air. General: This is a chronically ill- appearing, elderly, malnourished-looking female. She is lying in the bed currently in no acute distress. HEENT: Atraumatic, normocephalic. Her right sclera is cloudy. Conjunctivae are pale. Oral mucous membranes are dry with brown coating to her tongue. Neck: Supple. Trachea is midline. Cardiovascular: Heart rate and rhythm are regular. Normal sinus rhythm on the monitor with infrequent PVCs. Respiratory: Lung sounds have coarse wheezes noted bilaterally and are diminished in the bases. She does have a dry cough, which she states is occasional. Abdomen: Soft, flat, and nontender. Bowel sounds are active. Neurologic: She is awake, alert, and oriented. Able to move all her extremities in the bed independently with generalized weakness noted. Integumentary: PICC line is in place to the right upper arm w/o edema, erythema or drainage to the site. Skin is warm and dry. LABORATORY AND X-RAY: Today her white count is 5.42, hemoglobin 7.5, platelet count 262,000, creatinine is 0.3. Estimated GFR is greater than 60. Urine and blood cultures have shown no growth. Chest x-ray today is stable with no changes in the fullness of the gosia on the right. ASSESSMENT AND PLAN: Ms. Pizarro is being treated for right-sided pneumonia as well as an immunoglobulin deficiency. Today she states she is feeling better and denies any shortness of breath with only an occasional cough, which is dry. She has been receiving IV vancomycin and cefepime, which we will continue. Also she is currently having an infusion of IV gammaglobulin. After discharge, we will plan on a follow up level of her immunoglobulins in 6-8 weeks, to determine if she is chronically low. These plans have been discussed with and recommended by Dr. Sultana. COMORBIDITIES: For Ms. Pizarro include that she is elderly with protein-calorie malnutrition, history of tongue cancer treated with radiation therapy, DVT, osteoarthritis, and COPD. Dictated by CEM Ariza for Julio Cesar Sultana MD cc: Julio Cesar Sultana MD MTDD
--- NOTE | 2019-03-14 16:50 | PROGRESS NOTE ---
DATE: 03/14/2019 SUBJECTIVE: The patient is resting comfortably in bed. She underwent endoscopy today. OBJECTIVE: Vital Signs: Temperature 98.7, blood pressure 131/36, heart rate 89, respirations 18, O2 saturation 98% on room air. General: This is a chronically ill appearing elderly female, lying in bed in no acute distress. Heart: S1, S2 normal. Regular rate and rhythm. Lungs: Equal air entry bilaterally. No wheezing. No rales. No rhonchi. Abdomen: Positive bowel sounds. Soft, nontender, nondistended. Extremities: No edema. No cyanosis. Neurologic: The patient is alert and oriented x3. LABS: White blood cell count 5.4, hemoglobin 7.5, hematocrit 23, platelets 262. Sodium 133, potassium 3.8, chloride 97, CO2 25. BUN 11, creatinine 0.3, glucose 119. Calcium 8.5. ASSESSMENT AND PLAN: 1. Right lobe pneumonia. Continue with the current antibiotic regimen as directed by Dr. Sultana. 2. Immunoglobulin deficiency. The patient received IVIG yesterday. 3. Cricopharyngeal achalasia. Aware. 4. Severe constipation with fecal impaction. Continue with the current laxative regimen. 5. Esophagitis. Continue on Nexium. 6. Hypothyroidism. Continue on Synthroid. 7. Thoracic spine compression fracture. Aware. 8. Chronic obstructive pulmonary disease, stable. Continue with bronchodilator therapy. 9. Deep vein thrombosis prophylaxis. Continue with sequential compression devices. 10. Anemia. Will check iron studies. 11. Will consult Physical Therapy. cc: Devi Mena MD
[2019-03-14] MEDS: RESTASIS 0.05% OPH DROPS BOTH EYES SCH ×2 (17:15→23:08)
[2019-03-14] MEDS: TIMOPTIC 0.25% OPH SOLUTION LEFT EYE SCH ×2 (17:36→23:07)
[2019-03-14] MEDS: VANCOMYCIN 1,000 MG in NS 250 ML IV SCH (23:08)
[2019-03-15] MEDS: ANUSOL-HC CREAM PR SCH ×4 (00:45→22:00)
[2019-03-15] MEDS: CALMOSEPTINE OINTMENT TOP PRN (02:50)
[2019-03-15] MEDS: NEXIUM IV SCH ×2 (02:50→17:49)
[2019-03-15] MEDS: MAXIPIME 1 GM in NS 50 ML IV SCH ×2 (02:51→13:10)
[2019-03-15] MEDS: DILAUDID IV PRN (03:58)
[2019-03-15] MEDS: NS 250 ML IV SCH (04:56)
[2019-03-15] MEDS: CLINIMIX E 4.25%-5% SOLUTION 1,000 ML IV SCH ×2 (04:56→17:49)
[2019-03-15] MEDS: SYNTHROID PO SCH (06:13)
[2019-03-15] MEDS ORDERED: SYNTHROID PO SCH (07:00)
[2019-03-15 07:18] LABS: HEMOGLOBIN 7.5 g/dL (12.0-16.0); RBC 2.57 XMIL (4.2-5.4); WBC 6.61 X1000 (4.8-10.8)
[2019-03-15 07:19] LABS: HEMATOCRIT 23.6 % (37.0-47.0); MCH 29.2 PG (27-31); MCHC 31.8 g/dL (33-37); MCV 91.8 FL (81-99); MPV 7.8 FL (7.4-10.4); RDW 15.8 % (11.5-14.5)
[2019-03-15 07:50] LABS: AGAP 7; BUN 10 mg/dL (8-22); CALCIUM 8.2 mg/dL (8.8-10.2); CHLORIDE 97 mmol/L (98-107); COSMO 266; CREATININE 0.3 mg/dL (0.5-0.9); ESTIMATED GFR > 60; GLUCOSE 145 mg/dL (70-104); IRON SATURATION 12 %; POTASSIUM 3.6 mmol/L (3.5-5.1); SODIUM 132 mmol/L (136-145); TCO2 28 mmol/L (25-35); TIBC 116 ug/dL; TOTAL IRON 14 ug/dL (49-151); UNBOUND IRON 102 ug/dL (112-346)
[2019-03-15 08:07] LABS: FERRITIN 867 ng/mL (13-150)
[2019-03-15] MEDS: ANUSOL-HC SUPP PR SCH ×2 (08:28→21:59)
[2019-03-15] MEDS: DULCOLAX PR SCH ×2 (08:28→21:59)
[2019-03-15] MEDS: MIRALAX PO SCH ×2 (08:29→21:59)
[2019-03-15] MEDS: TIMOPTIC 0.25% OPH SOLUTION LEFT EYE SCH ×2 (08:29→22:00)
[2019-03-15] MEDS ORDERED: METHOTREXATE PO SCH (10:45)
[2019-03-15] MEDS: GAMUNEX-C 10% IV SCH (11:01)
[2019-03-15] MEDS: RESTASIS 0.05% OPH DROPS BOTH EYES SCH ×2 (11:01→22:00)
[2019-03-15] MEDS: ELDERTONIC PO SCH (11:03)
[2019-03-15] MEDS: ICAR-C PO SCH ×2 (11:11→21:59)
--- NOTE | 2019-03-15 11:34 | GASTROENTEROLOGY PROGRESS NOTE ---
DATE: 03/15/2019 SUBJECTIVE: Patient resting in bed. Her family was with her at bedside. I spoke to the patient's who was present at bedside. The patient had some bites to eat this morning. She is still continues poor oral intake. She is moving her bowels. She denies any vomiting today. She denies any fevers, rigors, chills. OBJECTIVE: Vital signs: Temperature 97.8 degrees, pulse 100, respiratory rate 16, blood pressure 130/44, saturating 97% on room air. Body weight of 85 pounds 7 ounces, BMI of 17.3 kg/m2. General: Thinly built, lying in bed. No acute distress. HEENT: Pale conjunctivae. No icterus. Neck: Supple. Abdomen: Soft. Mild discomfort in left lower quadrant. No rebound or guarding. Extremities: No cyanosis, clubbing. Neurologic: Alert, awake, oriented x3. LABORATORY DATA: Hemoglobin and hematocrit 7.5 and 23.8, white count 6.6, platelet count of 251,000. Sodium 132, potassium 3.6, chloride 97, bicarb 20, anion gap 7, BUN of 10, creatinine 0.8, glucose of 145, calcium 8.2. Iron studies show iron level of 14%, saturation of 12%, ferritin of 867. Folate of 5.6. B12 of 479. Creatinine less than 0.01. AST 9, ALT less than 5, alkaline phosphatase of 84. Total protein is 5.2, albumin of 2.8. Bilirubin is 0.49. Urine culture showed no growth. Blood cultures were showing no growth at 48 hours on 03/12/2019. IMPRESSION AND PLAN: 1. Cricopharyngeal achalasia, She had an EGD done with Dr. Cartwright, which showed Schatzki ring at the gastroesophageal junction and 35 cm from the incisors at the esophagogastric junction. This was biopsied. Biopsy currently pending. She also had a flexible sigmoidoscopy done yesterday which showed evidence of stool in the left colon. We will continue the bowel regimen. We will continue PPIs and evaluate response. 2. Anemia. She will continue iron C b.i.d. 3. Malnutrition. She will in Clinimix at 75 per hour. She continue Ensure Clear 3 times daily. We will advance her diet as tolerated. 4. Right lower lobe pneumonia. She is on antibiotics per primary team. 5. Immunodeficiency. She is getting IVIG per the primary care team. 6. Constipation and fecal impaction. Improving. Continue with bowel regimen. 7. Hypothyroidism. She is on Synthroid. 8. Thoracic spine compression fracture. Aware. 9. Chronic obstructive pulmonary disease. Continue bronchodilator therapy. 10. Deep venous thrombosis prophylaxis with sequential compression devices. 11. Disposition. Continue physical therapy. The above plans discussed with the patient and family at bedside and all questions were answered. Please call us with any further questions. cc: MD Agata Curtis MD [facility]
[2019-03-15] MEDS: METHOTREXATE PO SCH ×2 (11:43→21:59)
--- NOTE | 2019-03-15 16:38 | PROGRESS NOTE ---
DATE: 03/15/2019 SUBJECTIVE: The patient is resting comfortably in bed. She has had one bowel movement today. She is not eating very much. OBJECTIVE: Vital Signs: Temperature 98.1 degrees, blood pressure 153/41, heart rate 114, respirations 16, O2 saturation 95% on room air. General: This is a chronically ill-appearing elderly female, lying in bed, in no acute distress. Heart: S1, S2 normal. Tachycardic. Lungs: Equal air entry bilaterally. No wheezing. No rales. No rhonchi. Abdomen: Positive bowel sounds. Soft, nontender, nondistended. Extremities: No edema, no cyanosis. Neurologic: The patient is alert and oriented x4. LABORATORY DATA: White blood cell count 6.6, hemoglobin 7.5, hematocrit 23, platelets 251,000. Sodium 132, potassium 3.6, chloride 97, CO2 of 28, BUN 10, creatinine 0.3, glucose 145, calcium 8.2. Iron 14, ferritin 867, folate 5.6. ASSESSMENT AND PLAN: 1. Right lobe pneumonia. Continue with the current antibiotic regimen as directed by Dr. Sultana. 2. Esophagitis. 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 The final staining is currently pending. Continue on Nexium. 3. Severe constipation status post sigmoidoscopy. Continue with scheduled laxative therapy. We will discontinue all narcotic medications. Continue on scheduled laxative therapy as directed by Gastroenterology. 4. Cricopharyngeal achalasia. Aware. Management as per Gastroenterology . 5. Hypothyroidism. Continue on Synthroid. 6. Folate deficiency. We will start the patient on folic acid replacement. 7. Immunoglobulin deficiency. The patient is scheduled to receive another infusion of IVIG today. 8. Thoracic spine compression fracture. Aware. 9. Chronic obstructive pulmonary disease. Stable. Continue with bronchodilator therapy. 10. Iron deficiency anemia. Continue on Icar C. 11. Deconditioning. Continue with physical therapy. cc: Devi Mena MD MTDD
--- NOTE | 2019-03-15 18:41 | INFECTIOUS DISEASE PROGRESS NO ---
DATE: 03/15/2019 PRESENT ILLNESS: Patient has a right perihilar pneumonia. This was picked up on CT scan, but I do not think it showed up well on a regular chest x-ray. The patient also has immunoglobulin deficiency. MEDICATIONS: This is day 3 of vancomycin and cefepime. PHYSICAL EXAMINATION: Vital Signs: Temperature is 98.1 degrees, pulse 114, respirations 16, blood pressure 153/41. General: This is a chronically ill-appearing, elderly, and malnourished- appearing female. She is in no acute distress. Head/eyes/ears/nose/throat: She can hear my spoken words and see near objects. She does not have any drainage coming from her nose or ears. Neck: No pain with movement of the neck. Lungs: Clear to auscultation. Cardiovascular: Heart rate is regular. Abdomen: Soft and nontender. Neurologic: The patient was sleeping, but she did wake up. She can move her extremities. There is no tremor. LABORATORY AND X-RAY: The most recent chest x-ray was done on March 14. It said that there is some fullness of the gosia, particularly in the right hilum, but overall, there is no appreciable change from earlier studies. The patient's CBC today showed a white count of 6610, hemoglobin 7.5, and platelet count 251,000. Creatinine is 0.3, GFR is greater than 60. Procalcitonin is less than 0.1. IgA was 35 and IgG was 460. The patient was given IVIG. ASSESSMENT AND PLAN: Patient was admitted with a right lung pneumonia. I am going to continue with her current antibiotics, and tomorrow morning, I am going to get a noncontrasted study of the thorax. If the pneumonia has cleared or is clearing, then I think we could send her home on oral antibiotics. If the area has cleared completely, then she will not need any further antibiotics, especially with the procalcitonin being less than 0.1. The patient has received immunoglobulin during this admission, so she will not need another one for quite a while. COMORBIDITIES: The patient is elderly. She has protein-calorie malnutrition. She has a history of tongue cancer treated with radiation therapy. She also has chronic obstructive pulmonary disease. cc: Julio Cesar Sultana MD
[2019-03-15] MEDS: VANCOMYCIN 1,000 MG in NS 250 ML IV SCH (21:59)
[2019-03-16] MEDS: MAXIPIME 1 GM in NS 50 ML IV SCH ×2 (03:39→16:02)
[2019-03-16] MEDS: NEXIUM IV SCH ×2 (03:39→16:02)
[2019-03-16] MEDS: SYNTHROID PO SCH (06:05)
[2019-03-16 07:37] LABS: HEMATOCRIT 22.3 % (37.0-47.0); MCH 28.7 PG (27-31); MCHC 31.4 g/dL (33-37); MCV 91.4 FL (81-99); RBC 2.44 XMIL (4.2-5.4); WBC 4.94 X1000 (4.8-10.8)
[2019-03-16] MEDS ORDERED: NS 500 ML IV ONE (07:49)
[2019-03-16 07:54] LABS: AGAP 11; BUN 11 mg/dL (8-22); CALCIUM 8.4 mg/dL (8.8-10.2); CHLORIDE 96 mmol/L (98-107); COSMO 270; CREATININE 0.3 mg/dL (0.5-0.9); ESTIMATED GFR > 60; GLUCOSE 145 mg/dL (70-104); POTASSIUM 3.6 mmol/L (3.5-5.1); SODIUM 134 mmol/L (136-145); TCO2 27 mmol/L (25-35)
[2019-03-16] MEDS: TYLENOL PO PRN ×2 (10:51→18:54)
[2019-03-16] MEDS: TIMOPTIC 0.25% OPH SOLUTION LEFT EYE SCH ×2 (10:51→21:29)
[2019-03-16] MEDS: METHOTREXATE PO SCH ×2 (10:52→21:27)
[2019-03-16] MEDS: ICAR-C PO SCH ×2 (10:52→21:27)
[2019-03-16] MEDS: ANUSOL-HC CREAM PR SCH ×2 (10:52→21:28)
[2019-03-16] MEDS: RESTASIS 0.05% OPH DROPS BOTH EYES SCH ×2 (10:53→21:28)
[2019-03-16] MEDS: ANUSOL-HC SUPP PR SCH ×2 (10:53→21:28)
[2019-03-16] MEDS: DULCOLAX PR SCH ×2 (10:53→21:28)
[2019-03-16] MEDS: FOLIC ACID PO SCH (10:53)
[2019-03-16] MEDS: ELDERTONIC PO SCH (10:54)
[2019-03-16] MEDS: MIRALAX PO SCH ×2 (10:54→21:27)
[2019-03-16] MEDS ORDERED: NS 500 ML ONE (11:25)
--- NOTE | 2019-03-16 11:33 | Diag Imaging Result Doc PS360 ---
EXAM: CT THORAX W/O CONTRAST 03/16/2019 HISTORY: pneumonia TECHNIQUE: This exam was performed using automated exposure control, adjustment of mA or kV according to patient size, and/or use of iterative reconstruction technique. COMMENT: The current examination is compared with the previous study of 03/12/2019. There is a 10 mm right paratracheal node superiorly and a 21 mm tracheobronchial node on the right. There are multiple enlarged aorticopulmonary window nodes measuring up to 14 mm in size. There is a right pleural effusion which appears slightly larger than on the previous study. There is right hilar adenopathy. There is left axillary adenopathy with a node measuring up to 14 mm in size. This was also present previously. 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 This has not changed. There are tree-in-bud opacities present in the inferior portion of the right upper lobe posteriorly and the parahilar portions of the lower lobe and middle lobe. One opacity which is abutting the major fissure in the anterior lower lobe on image 73 has increased in size and density since the previous examination now measuring over 12 mm transversely compared to 9 mm at the time the previous study. There are degenerative changes in the thoracic spine. No acute bony abnormalities are present. IMPRESSION: 1. Stable mediastinal and left axillary adenopathy. Right hilar adenopathy. 2. Worsening perihilar pneumonia on the right. 3. Slightly worsened right pleural effusion. Electronically signed by Wellington Salmon 03/16/2019 11:30 AM
[2019-03-16] MEDS: CLINIMIX E 4.25%-5% SOLUTION 1,000 ML IV SCH ×2 (12:49→21:28)
--- NOTE | 2019-03-16 14:09 | PROGRESS NOTE ---
DATE: 03/16/2019 SUBJECTIVE: The patient is resting comfortably in bed. No acute events noted overnight. OBJECTIVE: Vital Signs: Temperature 99 degrees, blood pressure 120/44, heart rate 94, respirations 16, O2 saturation 98% on room air. General: This is a chronically ill-appearing, elderly female lying in bed in no acute distress. Heart: S1, S2 normal. Tachycardic. Lungs: Equal air entry bilaterally. No wheezing. No rales. Abdomen: Positive bowel sounds. Soft, nontender, nondistended. Extremities: No edema, no cyanosis. Neurologic: The patient is alert and oriented x4. LABS: White blood cell count 4.9, hemoglobin 7, hematocrit 22, platelets 245. Sodium 134, potassium 3.6, chloride 96, CO2 27. BUN 11, creatinine 0.3, glucose 145, calcium 8.4. X-RAYS: CT chest reveals stable mediastinal and left axillary adenopathy. Right hilar adenopathy. Worsening perihilar pneumonia on the right. Slightly worsened right pleural effusion. ASSESSMENT AND PLAN: 1. Right lobe pneumonia. The CT of the chest done today shows worsening of the pneumonia. Continue with antibiotics as directed by Dr. Sultana. We will also consult with the machine ii cutter. 2. Esophagitis. Continue on Nexium. The esophageal biopsy results are currently pending. 3. Constipation status post sigmoidoscopy. Continue with scheduled laxative therapy. 4. Cricopharyngeal achalasia. Aware. 5. Hypothyroidism. Continue on Synthroid. 6. Folate deficiency. Continue with folic acid replacement. 7. Immunoglobulin deficiency. The patient received 2 infusions of IVIG. We will continue to monitor closely. 8. Thoracic spine compression fracture. Aware. 9. Chronic obstructive pulmonary disease. Stable. 10. Iron deficiency anemia. Continue on Icar C. We will also transfuse 1 unit of packed red blood cells today. 11. Mediastinal, left axillary and right hilar adenopathy. We will consult with the machine ii cutter for further recommendations. 12. Deconditioning. Continue with physical therapy. cc: Devi Mena MD [facility]
[2019-03-16] MEDS: VANCOMYCIN 1 GM/NS 1 GM/250 ML IVPB IV SCH (14:25)
[2019-03-16] MEDS: SODIUM CHLORIDE 0.9% INJ SCH (16:02)
--- NOTE | 2019-03-16 16:35 | INFECTIOUS DISEASE PROGRESS NO ---
DATE: 03/16/2019 PRESENT ILLNESS: The patient has a right perihilar pneumonia. She also has an immunoglobulin deficiency. MEDICATIONS: The patient is receiving cefepime and vancomycin now for 3 days. She has had also infusion of IVIG of 20 g daily x2 infusions. PHYSICAL EXAMINATION: Vital Signs: Temperature is 98.6 degrees, pulse 89, respirations 17, blood pressure 120/41. General: This is a chronically ill-appearing malnourished appearing elderly female. She is in no acute distress, however. 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 She can see out of the other eye okay. She can hear my spoken words. Neck: No pain with movement of the neck. Lungs: Clear to auscultation. Cardiovascular: Heart rate is regular. Abdomen: Soft and nontender. Extremities: The patient has a PICC in the right arm. The site is not erythematous or tender. She has a left arm AV fistula which is in the state of maturing. Neurologic: The patient is awake. She can move her extremities. There is no tremor. LAB AND X-RAY STUDIES: She had a CT scan of the chest shows worsening right perihilar pneumonia. IgG was 460, IgA was 35 and since that time patient has had immunoglobulin infusions. Procalcitonin is less than 0.1. CBC shows a white count of 4940, hemoglobin 7 and platelet count 245,000. Creatinine is 0.3. GFR is greater than 60. ASSESSMENT AND PLAN: The patient appears on CT scan to have a right perihilar pneumonia. However, the procalcitonin level is less than 0.1 which suggests that the right perihilar infiltrate is not due to pneumonia. For now I am going to treat the patient as if she has pneumonia and continue with vancomycin and cefepime. Patient has received infusions of IVIG and patient would not need another infusion if any at least for 6 to 8 weeks or more. COMORBIDITIES: She is elderly, she has protein calorie malnutrition, she has a history of tongue cancer which was treated with radiation therapy. The patient also has chronic obstructive pulmonary disease. cc: Julio Cesar Sultana MD
[2019-03-17] MEDS: MAXIPIME 1 GM in NS 50 ML IV SCH ×2 (02:07→14:52)
[2019-03-17] MEDS: DILAUDID IV PRN ×4 (03:20→21:45)
[2019-03-17] MEDS: CLINIMIX E 4.25%-5% SOLUTION 1,000 ML IV SCH ×3 (03:21→20:10)
[2019-03-17] MEDS: VANCOMYCIN 1 GM/NS 1 GM/250 ML IVPB IV SCH ×2 (03:22→14:52)
[2019-03-17] MEDS: NEXIUM IV SCH ×2 (04:10→14:53)
[2019-03-17] MEDS: SYNTHROID PO SCH (06:17)
[2019-03-17 07:59] LABS: HEMATOCRIT 27.4 % (37.0-47.0); HEMOGLOBIN 8.7 g/dL (12.0-16.0); MCH 29.2 PG (27-31); MCHC 31.8 g/dL (33-37); MCV 91.9 FL (81-99); MPV 8.6 FL (7.4-10.4); RBC 2.98 XMIL (4.2-5.4); RDW 16.6 % (11.5-14.5); WBC 3.72 X1000 (4.8-10.8)
[2019-03-17 08:17] LABS: AGAP 8; BUN 11 mg/dL (8-22); CALCIUM 8.4 mg/dL (8.8-10.2); CHLORIDE 97 mmol/L (98-107); COSMO 269; CREATININE 0.3 mg/dL (0.5-0.9); ESTIMATED GFR > 60; GLUCOSE 151 mg/dL (70-104); POTASSIUM 3.7 mmol/L (3.5-5.1); SODIUM 133 mmol/L (136-145); TCO2 28 mmol/L (25-35)
[2019-03-17] MEDS: ANUSOL-HC CREAM PR SCH ×2 (10:13→20:10)
[2019-03-17] MEDS: ICAR-C PO SCH ×2 (10:14→20:11)
[2019-03-17] MEDS: ANUSOL-HC SUPP PR SCH ×2 (10:14→20:11)
[2019-03-17] MEDS: RESTASIS 0.05% OPH DROPS BOTH EYES SCH ×2 (10:14→20:10)
[2019-03-17] MEDS: DULCOLAX PR SCH ×2 (10:14→20:11)
[2019-03-17] MEDS: FOLIC ACID PO SCH (10:14)
[2019-03-17] MEDS: ELDERTONIC PO SCH (10:15)
[2019-03-17] MEDS: MIRALAX PO SCH ×2 (10:15→20:08)
[2019-03-17] MEDS: TIMOPTIC 0.25% OPH SOLUTION LEFT EYE SCH ×2 (10:15→20:10)
--- NOTE | 2019-03-17 10:36 | PROGRESS NOTE ---
DATE: 03/17/2019 SUBJECTIVE: The patient is resting comfortably. She complains of lower abdominal pain. No acute events noted overnight. OBJECTIVE: Vital Signs: Temperature 97.7 degrees, blood pressure 134/48, heart rate 92, respirations 16, O2 saturations 100% on room air. General: This is a chronically ill-appearing elderly female, lying in bed in no acute distress. Heart: S1, S2 normal. Tachycardic. Lungs: Equal air entry bilaterally. No wheezing. No rales. No rhonchi. Abdomen: Positive bowel sounds. Soft, nontender, nondistended. Extremities: No edema, no cyanosis. Neurologic: The patient is alert and oriented x3. LABS: White blood cell count 3.7, hemoglobin 8.7, hematocrit 27, platelets 198. Sodium 133, potassium 3.7, chloride 97, CO2 28. BUN 11, creatinine 0.3, glucose 151. ASSESSMENT AND PLAN: 1. Right lobe pneumonia. Continue with antibiotic and bronchodilator therapy. 2. Esophagitis. Continue on Nexium. The esophageal biopsy results suggest possible herpes simplex virus. Will follow up on the final biopsy results. 3. Constipation, status post sigmoidoscopy, improved. Continue with scheduled laxative therapy. 4. Cricopharyngeal achalasia. Aware. 5. Hypothyroidism. Continue on Synthroid. 6. Folate deficiency. Continue with folic acid replacement. 7. Immunoglobulin deficiency. The patient received 2 infusions of IVIG during this hospitalization. 8. Thoracic spine compression fracture. Aware. 9. Mediastinal, left axillary and right hilar adenopathy. Aware. Pulmonology has been consulted. 10. Iron deficiency anemia. Continue on Icar C. 11. Chronic obstructive pulmonary disease. Stable. 12. Deconditioning. Continue with physical therapy. 13. Disposition: The patient will be discharged to inpatient rehab once she is medically stable. cc: Devi Mena MD [facility]
[2019-03-17] MEDS: SODIUM CHLORIDE 0.9% INJ SCH (14:53)
[2019-03-17] MEDS: MYCOSTATIN SUSP PO SCH ×3 (16:00→20:09)
--- NOTE | 2019-03-17 16:28 | CONSULTATION ---
DATE OF CONSULTATION: 03/17/2019 REQUESTING PROVIDER: Dr. Devi Mena. REASON FOR CONSULTATION: Pneumonia, lymphadenopathy. This is a 78-year-old female with a medical history of folic acid deficiency, over reactive bladder, uveitis, tongue cancer, left lower extremity DVT, arthritis, osteopenia, diverticulosis, degenerative joint disease, spinal stenosis, T12 compression fracture, hypertension, and hypothyroidism. She presented to the ER on 03/10/2019 with low abdominal pain, rectal pain and bladder pain. Initial workup in the ER revealed UTI and severe constipation. She has been admitted for further evaluation and management. During this hospital stay she had CT without contrast on 03/12/2019 showed right perihilar infiltrate with tree in bud opacities suggesting pneumonia and bronchiolitis, mild prominent right hilum and several borderline and mildly prominent lymph nodes they are nonspecific but probably reactive. CT on 03/16/2019 showed stable mediastinal and left axillary adenopathy, right hilar adenopathy worsened, perihilar pneumonia on the right side and slightly worse right pleural effusion. Patient currently is lying in bed complaining of sharp stabbing pain on the left lower quadrant 10. She is moaning and restless. Her face appears pale and she is diaphoretic. Patient's sister is at the bedside. The patient reports she has been having this kind of stomach pain before admission and is getting worse. Patient's sister report patient had 1 bowel movement this morning. Patient reports no chest pain or palpitation at this time. She has no shortness of breath, wheezing, fever or chills. She has mild dry cough. Patient's sister also reported that patient recently had a lung biospy done and the result was inconclusive. PAST MEDICAL HISTORY: 1. Folic acid deficiency. 2. Overactive bladder. 3. 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 She has been on methotrexate . 4. Tongue cancer diagnosed this year. She received 35 radiation treatments with the last one on 10/05/2018. Later PET scan showed that the cancer has been clear. 5. Left leg DVT. 6. Arthritis. 7. Osteopenia. 8. Diverticulosis. 9. Degenerative joint disease. 10. Spinal stenosis of L3, L4, and L5. 11. T12 compression fracture. 12. Hypertension . 13. Hypothyroidism. SURGICAL HISTORY: 1. Recent lung biopsy with inconclusive results reported by patient's sister. 2. Eye surgery. 3. section. SOCIAL HISTORY: The patient is and lives at home with her . She has 2 sisters living closely and they help to take care of her routinely. She was a former smoker and quit smoking 30 years ago. She used to smoke 1 pack per day for about 10 years. She has no history of alcohol or illicit drug use. FAMILY HISTORY: Mother have emphysema. Father have diabetes. Brothers have diabetes. ALLERGIES: Linezolid, Codeine and prednisone REVIEW OF SYSTEMS: A 10-point review of systems was conducted and the pertinent is listed within the HPI otherwise noncontributory. PHYSICAL EXAMINATION: Vital Signs: Temperature 97.7, blood pressure 134/48, pulse 92, respiratory rate 16, oxygen saturation 100% at room air. General: Appears chronically ill appearing elderly lying in bed restless and moaning, pale face. HEENT: Atraumatic, normocephalic. Left pupil is regular, round, and reactive to light. 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 Mucosa pink and moist. Some black color noted on the top of the tongue. Respiratory: Breathing is even but very shallow. No accessory muscle use. Clear to auscultation. Cardiovascular: Regular rate and rhythm. GASTROINTESTINAL: Soft, nondistended with severe sharp pain on the left lower quadrant. Patient is guarding left lower quadrant at this time. Bowel sounds present in all 4 quadrants.Extremities: No pedal edema, no cyanosis, no clubbing but cool to touch. Dorsalis pedis 1+ bilaterally. Neurologic: Alert and oriented x3. Speech fluent. Follows commands. LAB DATA: White blood cells 3.72, hemoglobin 8.7, hematocrit 27.4, platelet 198,000. Sodium 133, potassium 3.7, chloride 97, carbon dioxide 28, BUN 11, creatinine 0.3, glucose 151. ASSESSMENT: This is a 78-year-old female with multiple medical history including folic acid deficiency, overactive bladder, uvulitis, tongue cancer, left leg deep vein thrombosis, arthritis, osteopenia, diverticulosis, degenerative joint disease, spinal stenosis, T12 compression fracture, hypertension and hypothyroidism she. She has been admitted since 03/10/2019 with urinary tract infection and severe constipation with severe rectal stool impaction. CT on 03/16/2019 showed the mediastinal and left axillary adenopathy, right hilar adenopathy. 1. Mediastinal left axillary and right hilar adenopathy. 2. Right perihilar pneumonia with right pleural effusion. 3. Esophagitis. 4. Left lower quadrant abdominal severe pain with constipation. 5. Urinary tract infection. 6. Chronic obstructive pulmonary disease stable. No exacerbation at this time. PLAN: 1. Continue antibiotics per Dr. Sultana for pneumonia. 2. Repeat CT after completing antibiotic therapy. 3. Patient will need outpatient PET scan. 4. Pleural effusion is too small for thoracentesis at this time. 5. Continue GI and DVT prophylaxis. Thank you for the courtesy of this consult. Dictated by CEM Baires for Kristina Mojica MD cc: CEM Baires MD [facility]
[2019-03-17] MEDS: CHLORASEPTIC SPRAY MT PRN ×3 (17:22→22:52)
[2019-03-17] MEDS: TYLENOL PO PRN (20:09)
[2019-03-17] MEDS: ZOFRAN IV PRN (22:52)
--- NOTE | 2019-03-17 23:52 | PROVIDER PROGRESS NOTE ---
Progress Note S: No acute overnight events. +BMs. Mild lower abdominal discomfort. No N/V. Poor appetite. O: Last Vital Signs Temp 99.8 F H 03/17/19 19:14 Pulse 108 H 03/17/19 19:14 Resp 19 03/17/19 19:14 BP 156/49 03/17/19 19:14 Pulse Ox 96 03/17/19 19:14 Height 4 ft 11 in Weight 85 lb 7 oz GEN: thin, awake, alert, NAD HEENT: EOMI, MMM, black tongue; no thrush NECK: supple, no JVD PULM: normal WOB CV: RRR, no murmurs ABD: soft, ND, minimal TTP lower abdomen, no rebound or guarding EXT: no cce NEURO: moving all extremities symmetrically LABS: 03/17/19 03/17/19 07:40 07:40 WBC 3.72 L Hgb 8.7 L D Plt Count 198 Sodium 133 L Potassium 3.7 Chloride 97 L Carbon Dioxide 28 BUN 11 Creatinine 0.3 L Glucose 151 H EGD/Colon 03/14 ESOPHAGUS: A Schatzki ring was found at the gastroesophageal junction and 35 cm from the incisors and was widely open. Esophagitis was found at the gastroesophageal junction. Esophagitis was LA Class B: One or more mucosal breaks > 5mm, but without continuity across mucosal folds. A biopsy was performed using cold forceps. Sample sent for histology. A 4 cm hiatal hernia was noted. STOMACH: The stomach was normal. DUODENUM: The duodenum was normal. COLON FINDINGS: A large amount of solid and liquid brown stool was found throughout the sigmoid and descending colon. Irrigation was performed with 1.5L of water throughout the left colon. There was diverticulosis noted in the sigmoid colon. Retroflexion was not performed. The scope was then completely withdrawn from the patient and the procedure terminated. No luminal or obstructing lesions were found. A/P: Ms. Fina Pizarro is a 78 year old woman who was admitted from [place] with abdominal pain and dysphagia found to have fecal impaction and UTI. EGD showed widely patent Schatzki's ring, esophagitis grade B and hiatal hernia. Colonoscopy reveal rectal fecal impaction and sigmoid diverticulosis. Impaction cleared endoscopically with copious irrigation. 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 Please call with questions
[2019-03-18] MEDS: DILAUDID IV PRN ×3 (01:33→09:48)
[2019-03-18] MEDS: MAXIPIME 1 GM in NS 50 ML IV SCH ×2 (01:34→15:40)
[2019-03-18] MEDS: VANCOMYCIN 1 GM/NS 1 GM/250 ML IVPB IV SCH (02:14)
[2019-03-18] MEDS: NEXIUM IV SCH ×2 (03:18→16:13)
[2019-03-18] MEDS: SYNTHROID PO SCH (06:12)
[2019-03-18] MEDS: MBX SOLUTION MT PRN (06:17)
[2019-03-18] MEDS: TYLENOL PO PRN (06:56)
[2019-03-18 07:56] LABS: HEMATOCRIT 27.6 % (37.0-47.0); HEMOGLOBIN 8.8 g/dL (12.0-16.0); MCHC 31.9 g/dL (33-37); MCV 91.1 FL (81-99); MPV 8.8 FL (7.4-10.4); RBC 3.03 XMIL (4.2-5.4); RDW 16.1 % (11.5-14.5); WBC 3.47 X1000 (4.8-10.8)
[2019-03-18 08:24] LABS: AGAP 11; BUN 10 mg/dL (8-22); CALCIUM 8.8 mg/dL (8.8-10.2); CHLORIDE 97 mmol/L (98-107); COSMO 272; CREATININE 0.3 mg/dL (0.5-0.9); ESTIMATED GFR > 60; GLUCOSE 152 mg/dL (70-104); POTASSIUM 3.8 mmol/L (3.5-5.1); SODIUM 135 mmol/L (136-145); TCO2 27 mmol/L (25-35)
[2019-03-18] MEDS: ZOFRAN IV PRN (09:48)
[2019-03-18] MEDS: CLINIMIX E 4.25%-5% SOLUTION 1,000 ML IV SCH (10:00)
[2019-03-18] MEDS ORDERED: ULTRAM PO PRN (10:07)
[2019-03-18] MEDS: MIRALAX PO SCH (10:19)
[2019-03-18] MEDS: RESTASIS 0.05% OPH DROPS BOTH EYES SCH ×2 (10:19→20:04)
[2019-03-18] MEDS: MYCOSTATIN SUSP PO SCH ×4 (10:19→20:04)
[2019-03-18] MEDS: TIMOPTIC 0.25% OPH SOLUTION LEFT EYE SCH ×2 (10:20→20:05)
[2019-03-18] MEDS: ANUSOL-HC SUPP PR SCH ×2 (10:20→20:04)
[2019-03-18] MEDS: ANUSOL-HC CREAM PR SCH ×2 (10:20→20:03)
[2019-03-18 10:23] LABS: URINE SOURCE CATH
[2019-03-18 10:26] LABS: BILIRUBIN URINE NEGATIVE (NEGATIVE); BLOOD URINE NEGATIVE (NEGATIVE); COLOR STRAW; GLUCOSE URINE NEGATIVE (NEGATIVE); KETONE URINE NEGATIVE (NEGATIVE); LEUKOCYTES URINE NEGATIVE (NEGATIVE); NITRITE URINE NEGATIVE (NEGATIVE); PROTEIN URINE NEGATIVE (NEGATIVE); TURBIDITY URINE CLEAR (CLEAR); UROBILINOGEN URINE NORMAL (NORMAL)
[2019-03-18 10:37] LABS: SP GRAVITY URINE 1.003
[2019-03-18 10:47] LABS: UR EPITHELIAL CELLS <10 /HPF (<10); URINE BACTERIA NEGATIVE /HPF; URINE RBC <10 /HPF (<10); URINE WBC <10 /HPF (<10)
[2019-03-18] MEDS ORDERED: SODIUM CHLORIDE 0.9% INJ PRN (11:15)
--- NOTE | 2019-03-18 11:30 | Diag Imaging Result Doc PS360 ---
EXAM: CHEST-PORTABLE 03/18/2019 HISTORY: pneumonia TECHNIQUE: Erect AP portable at 1115 COMMENT: The inspiration is slightly better than on 03/14/2019. There is perihilar opacity on the right which was also present previously. IMPRESSION: Right perihilar pneumonia/adenopathy, stable. Electronically signed by Wellington Salmon 03/18/2019 11:27 AM
[2019-03-18] MEDS ORDERED: ATROPINE IV ONE (11:35)
[2019-03-18] MEDS ORDERED: DOPAMINE 400 MG/D5W 400 MG/500 ML IV.SOLN IV SCH (12:00)
[2019-03-18 12:52] LABS: BLOOD TYPE ARTERIAL; HCO3-(ACT) 31.2 mmoll (20.0-26.0); PCO2(98.6) 44 mmHg (35-45); PO2(98.6) 78 mmHg (60-100); SAMPLE BLOOD; pH(98.6) 7.46 (7.35-7.45)
--- NOTE | 2019-03-18 12:52 | CARDIOLOGY CONSULTATION ---
DATE: 03/18/2019 HISTORY OF PRESENT ILLNESS: Cardiology was consulted for transient bradycardia. Patient is a 78- year-old, lady with multiple medical problems. No previous cardiac history. Has tongue cancer with 35 radiation treatments this year. Also underwent a lung biopsy which was inconclusive. She had a DVT. She is on Eliquis. She had been taking methotrexate. She has uveitis and blindness in the right eye. She is admitted with a urinary tract infection, constipation, and dysphagia, and has undergone upper GI endoscopy which revealed esophagitis, a Schatzki's ring, hiatal hernia, and a biopsy specimen revealed HSV infection. She has had significant constipation, requiring flexible sigmoidoscopy that was done which revealed left colon stool. I had a discussion with the patient's family. She has been doing very poorly and has not be eating well at all. No previous cardiac history. There are no palpitations. There is no recent syncopal episode. PAST MEDICAL HISTORY: 1. Uveitis with blindness. She is on methotrexate. 2. Tongue cancer diagnosed 2019, status post 35 radiation treatments. 3. History of left leg DVT. 4. Arthritis. 5. Diverticulosis. 6. Degenerative joint disease, spinal stenosis at L3, L4, L5. 7. T12 compression fracture. 8. History of hypertension. 9. Hypothyroidism. 10. During this hospitalization, she was diagnosed to have HSV infection, esophagitis, and a Schatzki's ring has been noted. She has also worsening mediastinal and left axillary lymphadenopathy with worsening perihilar pneumonia on the right side. CURRENT MEDICATIONS: Include acyclovir, amino acids, cyclosporine eyedrops, enoxaparin, IV Nexium, hydrocortisone suppositories p.r.n., levothyroxine, cefepime, nystatin oral suspension, timolol eyedrops. REVIEW OF SYSTEMS: A 14-point review of systems could not be obtained from the patient. PHYSICAL EXAMINATION: Vital Signs: Blood pressure currently 118/37, heart rate 70. First and second heart sounds were heard. Jugular venous pressure was normal. There was no carotid bruit. There was no S3 gallop. Respiratory System: Normal air entry. Abdomen: Soft. Central Nervous System: Was moving all 4 extremities. Detailed examination not performed. ASSESSMENT AND PLAN: 1. Ms. 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 She is admitted. Has very poor oral intake. She is on intravenous nutrition. From a cardiac standpoint, today, she was noted to have bradycardia. Telemetry strips revealed a questionable 2:1 or sinus pause which was transient and her recent echocardiogram was unremarkable. As far as the etiology of this is concerned, this could be multifactorial, probably vasovagal. She has had significant malignancies, status post treatment in her tongue and has herpes simplex virus esophagitis. Would recommend a CT scan of her neck and throat to make sure there is no abscess or adenopathy which could be impinging on the vagus nerves to account for this transient episode, given her recent significant history. 2. We will monitor her in intensive care unit and use dopamine, atropine if required should she have further ongoing episodes of bradycardia. 3. She is not on any medications which could cause this. 4. She is hypothyroid, on thyroid supplements. We will check her TSH and follow up with lab work as well to make sure her magnesium and potassium are under control. I have not made any other changes to medications, recommend all treatment for her multiple medical problems. Thank you for the consult. cc: Darwin Souza MD
[2019-03-18 12:54] LABS: MODALITY CANNULA
[2019-03-18 12:56] LABS: ALLEN TEST YES
--- NOTE | 2019-03-18 13:02 | EKG Report ---
Test Performed on : 03/18/2019 11:31:59 AM Test Reason : bradycardia Blood Pressure : / mmHG Vent. Rate : 087 BPM Atrial Rate : 087 BPM P-R Int : 172 ms QRS Dur : 108 ms QT Int : 364 ms P-R-T Axes : 063 062 017 degrees QTc Int : 438 ms Normal sinus rhythm. with sinus arrhythmia. Right bundle branch block Abnormal ECG When compared with ECG of 13-MAR-2019 20:59, Right bundle branch block has replaced Incomplete right bundle branch block Criteria for Septal infarct are no longer present Confirmed by Eddi Rod MD ([id number]) on 03/21/2019 8:50:09 PM
[2019-03-18 13:03] LABS: FREE T4 2.51 ng/dL (0.93-1.70); TSH 0.28 uIUmL (0.27-4.20)
[2019-03-18] MEDS: FOLIC ACID 1 MG in NS 50 ML IV SCH (13:19)
[2019-03-18] MEDS: LOVENOX SUBQ SCH (13:19)
[2019-03-18] MEDS ORDERED: VANCOMYCIN 1,200 MG in NS 250 ML IV SCH (14:00)
[2019-03-18] MEDS: NS IV SCH ×2 (14:00→20:04)
[2019-03-18] MEDS: ZOVIRAX IV SCH ×2 (14:00→20:04)
--- NOTE | 2019-03-18 14:18 | Diag Imaging Result Doc PS360 ---
EXAM: CT HEAD WWO NECK W/CONTRAST 03/18/2019 HISTORY: abcess/recent radiation treatment TECHNIQUE: This exam was performed using automated exposure control, adjustment of mA or kV according to patient size, and/or use of iterative reconstruction technique. COMMENT: Head: There are no previous CT examinations available for comparison. There is no evidence of mass effect, bleed, or abnormal extra-axial fluid collection. The visualized paranasal sinuses are clear. The calvarium is intact. CT of the neck with and without contrast: The current examination is compared with the previous study of 12/29/2018. The nasopharynx is unremarkable. The salivary glands are symmetrical in appearance. There is thickening of the epiglottis and effacement of the right piriform sinus. There is a right pleural effusion. There are nonspecific appearing nodes in the upper mediastinum including one right paratracheal node measuring over 18 mm. No abnormal fluid collections are present. There is some apical pleural fibrosis particularly on the left. There are multiple small nodular opacities in the upper lung zones particularly in the right apex. Compared to the previous examination the changes in the epiglottis were present previously. The anterior apical pleural changes were present at the time the previous thoracic study of 03/16/2019 but the small pulmonary nodules particularly in the right upper lobe were not present previously and this may be related to pneumonia or other acute inflammatory process. IMPRESSION: No evidence of acute disease intracranially. Stable thickening of the epiglottis. Mediastinal adenopathy. Worsening pneumonia/pneumonitis. Electronically signed by Wellington Salmon 03/18/2019 2:16 PM
[2019-03-18] MEDS: OFIRMEV 1000 MG/ISOTONIC SOLN 1,000 MG/100 ML BOTTLE IV PRN (16:13)
[2019-03-18] MEDS: ZYVOX 600 MG/D5W 600 MG/300 ML IVPB IV SCH (16:14)
[2019-03-18] MEDS: NS 1,000 ML IV SCH (16:14)
--- NOTE | 2019-03-18 16:28 | INFECTIOUS DISEASE PROGRESS NO ---
DATE: 03/18/2019 PRESENT ILLNESS: Patient has a worsening pneumonia, an immunoglobulin deficiency and most recently an esophageal biopsy showed findings compatible with herpes simplex virus infection. MEDICATIONS: The patient is on a combination of cefepime and vancomycin. She also has received an immunoglobulin infusion. PHYSICAL EXAMINATION: Vital Signs: Temperature is 102, pulse 119, respirations 24, blood pressure is 140/54, patient weighs 85 pounds. General: This is a chronically ill-appearing elderly female. She is confused. Head/eyes/ears/nose/throat: No drainage noted from the nose or ears. She does not have any white patches on her tongue. Neck: No stiffness. Lungs: Clear to auscultation. Cardiovascular: Heart rate is regular. Abdomen: Soft and nontender. Extremities: Patient has a PICC in her right arm. The site is not erythematous or swollen. Neurologic: The patient is confused. She was unable to answer questions such as her where she was and her name. LAB AND X-RAY: The patient's CBC shows a white count of 3470, hemoglobin 8.8, platelet count 185,000. Creatinine is 0.3. GFR is greater than 60. Urinalysis showed no white cells or bacteria. Blood cultures are pending. Esophageal biopsy showed changes consistent with herpes simplex virus infection. The patient's CT scan of the head and neck showed worsening pneumonia. ASSESSMENT AND PLAN: Regarding the patient's pneumonia I have discontinued vancomycin and placed the patient on Zyvox. Also I discontinued cefepime and placed the patient on meropenem. As regarding the esophageal biopsy I have started the patient on intravenous acyclovir. As regarding the patient's immunoglobulin deficiency, patient has had an infusion of IVIG. COMORBIDITIES: She has protein calorie malnutrition, she has a history of tongue cancer treated with radiation therapy and she has chronic obstructive pulmonary disease. cc: Julio Cesar Sultana MD
--- NOTE | 2019-03-18 17:00 | PROGRESS NOTE ---
DATE: 03/18/2019 SUBJECTIVE: The patient was noted to be somewhat lethargic today and had periods of intermittent episodes of bradycardia where her heart rate would drop into the 30s. Also, she is febrile. As a result the patient was transferred to the ICU. OBJECTIVE: Vital Signs: Temperature 101.6 degrees, blood pressure 140/54, heart rate 114, respirations 18, O2 saturation is 94% on 2 L nasal cannula. General: This is a chronically ill- appearing elderly female, lying in bed in no acute distress. Heart: S1, S2 normal, tachycardic. Lungs: Equal air entry bilaterally. No wheezing. No rales. Abdomen: Positive bowel sounds. Soft, nontender, nondistended. Extremities: No edema, no cyanosis. Neurologic: The patient is lethargic. She will open her eyes when her name is called. She is able to move her extremities. DIAGNOSTIC STUDIES: White blood cell count 3.4, hemoglobin 8.8, hematocrit 185. Sodium 135, potassium 3.8, chloride 97, CO2 of 27, BUN 10, creatinine 0.3, glucose 152. Troponin less than 0.01. Free T4 of 2.51. CT of the head and neck shows thickening of the epiglottis. Mediastinal adenopathy. Worsening pneumonia and pneumonitis. ASSESSMENT AND PLAN: 1. Pneumonia. The patient's antibiotics have been adjusted today by Dr. Sultana. We will continue with supplemental oxygen and bronchodilator therapy and monitor the patient's response. 2. Bradycardia. The patient has been moved to the ICU for closer monitoring. We will continue to follow closely. The patient has been seen by the outside plant engineer. 3. Esophagitis. The esophageal biopsy is showing possible HSV. The patient has been started on acyclovir. We will also continue with Nexium. 4. Cricopharyngeal achalasia. Aware. The patient is unable to swallow pills at this time. She has been made n.p.o. 5. Hypothyroidism. Continue on Synthroid. 6. Immunoglobulin deficiency. The patient received 2 infusions of IVIG during this hospitalization. 7. History of tongue cancer status post radiation therapy. Aware. 8. Mediastinal, left axillary, and right hilar adenopathy. Aware. 9. Iron deficiency anemia. We will continue to monitor the hemoglobin and hematocrit closely. 10. Chronic obstructive pulmonary disease. Stable. 11. Deconditioning. Aware. Once the patient is medically stable, we will resume physical therapy. cc: Devi Mena MD
[2019-03-18] MEDS: MERREM 500 MG in NS 50 ML IV SCH (17:12)
[2019-03-18] MEDS: MORPHINE IV PRN (17:13)
--- NOTE | 2019-03-18 19:23 | Diag Imaging Result Doc PS360 ---
EXAM: LUNG SCAN / VQ 03/18/2019 HISTORY: possible clot TECHNIQUE: Ventilation/perfusion lung scan, 30.3 mCi of technetium 99m DTPA aerosol and 5.3 mCi of technetium 99m MAA COMMENT: There is somewhat heterogeneous ventilation and perfusion activity particularly in the superior segment of the right lower lobe. This probably reflects the opacity present in the parahilar superior segment on the right as demonstrated on previous chest radiographs and the CT of 03/16/2019. The defect appears to be matched. Otherwise there are no perfusion defects. IMPRESSION: Low probability for pulmonary embolus. Electronically signed by Wellington Salmon 03/18/2019 7:21 PM
[2019-03-19] MEDS: MORPHINE IV PRN ×3 (00:58→14:46)
[2019-03-19] MEDS: MERREM 500 MG in NS 50 ML IV SCH ×3 (01:22→16:41)
[2019-03-19] MEDS: ZYVOX 600 MG/D5W 600 MG/300 ML IVPB IV SCH ×2 (01:23→13:48)
[2019-03-19] MEDS: NS 1,000 ML IV SCH (02:36)
[2019-03-19] MEDS: OFIRMEV 1000 MG/ISOTONIC SOLN 1,000 MG/100 ML BOTTLE IV PRN ×2 (03:35→19:56)
[2019-03-19] MEDS: NEXIUM IV SCH ×2 (04:17→14:46)
[2019-03-19] MEDS: SODIUM CHLORIDE 0.9% INJ SCH ×2 (04:17→14:46)
[2019-03-19] MEDS: NS IV SCH ×3 (05:00→20:05)
[2019-03-19] MEDS: ZOVIRAX IV SCH ×3 (05:00→20:05)
[2019-03-19 06:02] LABS: AGAP 9; BUN 7 mg/dL (8-22); CALCIUM 7.8 mg/dL (8.8-10.2); CHLORIDE 103 mmol/L (98-107); COSMO 278; CREATININE 0.3 mg/dL (0.5-0.9); ESTIMATED GFR > 60; GLUCOSE 116 mg/dL (70-104); POTASSIUM 3.1 mmol/L (3.5-5.1); SODIUM 140 mmol/L (136-145); TCO2 28 mmol/L (25-35)
[2019-03-19 06:07] LABS: BASO# 0.01 X1000 (0.0-0.2); BASO% 0.3 % (0.0-0.8); EOS# 0.01 X1000 (0.0-0.7); EOS% 0.3 % (0.0-10.0); HEMATOCRIT 26.2 % (37.0-47.0); HEMOGLOBIN 8.1 g/dL (12.0-16.0); LYMPH# 0.19 X1000 (1.2-3.4); LYMPH% 5.3 % (20.5-51.1); MCH 27.6 PG (27-31); MCHC 30.9 g/dL (33-37); MCV 89.1 FL (81-99); MONO# 0.31 X1000 (0.11-0.59); MONO% 8.7 % (1.7-9.3); MPV 9.3 FL (7.4-10.4); NEUT# 3.06 X1000 (1.4-6.5); NEUT% 85.4 % (42.2-75.2); PLT 157 X1000 (130-400); RBC 2.94 XMIL (4.2-5.4); RDW 15.6 % (11.5-14.5); WBC 3.58 X1000 (4.8-10.8)
[2019-03-19] MEDS ORDERED: POTASSIUM CHLORIDE 60 MEQ in NS 500 ML IV ONE (06:38)
[2019-03-19] MEDS ORDERED: SYNTHROID IV SCH (07:00)
[2019-03-19] MEDS: CLINIMIX E 4.25%-5% SOLUTION 1,000 ML IV SCH ×2 (07:11→19:57)
--- NOTE | 2019-03-19 07:34 | Diag Imaging Result Doc PS360 ---
EXAM: CHEST-PORTABLE INDICATION: pneumonia TECHNIQUE: One view COMPARISON: 03/18/2019 FINDINGS: Right PICC line is in stable position. The right perihilar opacity seen previously is unchanged. No new consolidation is identified. Cardiac silhouette is stable. IMPRESSION: Stable chest. Electronically signed by Smooth Guadalupe 03/19/2019 7:32 AM
[2019-03-19] MEDS: TIMOPTIC 0.25% OPH SOLUTION LEFT EYE SCH ×2 (09:15→20:06)
[2019-03-19] MEDS: RESTASIS 0.05% OPH DROPS BOTH EYES SCH ×2 (09:16→20:05)
[2019-03-19] MEDS: ANUSOL-HC CREAM PR SCH ×2 (09:17→21:53)
[2019-03-19] MEDS: MYCOSTATIN SUSP PO SCH ×4 (09:18→21:53)
[2019-03-19] MEDS: ANUSOL-HC SUPP PR SCH ×2 (09:18→21:53)
[2019-03-19 09:26] LABS: PHOSPHORUS 2.4 mg/dL (2.7-4.5)
[2019-03-19] MEDS: FOLIC ACID 1 MG in NS 50 ML IV SCH (12:01)
[2019-03-19] MEDS: LOVENOX SUBQ SCH (13:49)
--- NOTE | 2019-03-19 19:12 | PROGRESS NOTE ---
DATE: 03/19/2019 SUBJECTIVE: The patient is resting comfortably in bed. She states that her throat does not hurt as much today. She denies having any abdominal pain. OBJECTIVE: Vital Signs: Temperature 99.8, blood pressure 141/61, heart rate 104, respirations 21, O2 saturations 100% on room air. General: This is a chronically ill- appearing elderly female lying in bed. Head: Normocephalic, atraumatic. Heart: S1, S2 normal. Tachycardic. Lungs: Equal air entry bilaterally. No wheezing. No rales. No rhonchi. Abdomen: Positive bowel sounds. Soft, nontender, nondistended. Extremities: No edema, no cyanosis. Neurologic: The patient is alert and oriented x3. LABS: White blood cell count 3.5, hemoglobin 8.1, hematocrit 26, platelets 157,000. Sodium 140, potassium 3.1, chloride 103, CO2 28, BUN 7, creatinine 0.3, phosphorus 2.4, magnesium 2. X-RAYS: Chest x-ray shows right perihilar opacity. ASSESSMENT AND PLAN: 1. Pneumonia. Continue with bronchodilator therapy, antibiotics, and supplemental oxygen. 2. Herpes simplex virus esophagitis. The patient is on acyclovir. We will also continue on Nexium. 3. Cricopharyngeal achalasia. Aware. The patient is now on a full liquid diet. Will monitor her progress. 4. Hypothyroidism. The free T4 is elevated. We will hold the Synthroid at this time. 5. Hypokalemia. Will replace the patient's potassium. 6. History of tongue cancer status post radiation therapy. Aware. 7. Immunoglobulin deficiency. The patient received 2 intravenous immunoglobulin infusions during this hospitalization. 8. Mediastinal, left axillary, and right hilar adenopathy. Aware. Pulmonary is following. 9. Iron deficiency anemia. Stable. 10. Chronic obstructive pulmonary disease. Continue with bronchodilator therapy and supplemental oxygen. cc: Devi Mena MD MTDD
--- NOTE | 2019-03-19 21:01 | INFECTIOUS DISEASE PROGRESS NO ---
DATE: 03/19/2019 PRESENT ILLNESS: Ms. Pizarro is being treated for right perihilar hilar pneumonia, an immunoglobulin deficiency, herpes viral esophagitis, and an oral candidiasis. MEDICATIONS: Yesterday she was started on acyclovir 200 mg IV every 8 hours, Zyvox 600 mg IV every 12 hours, and meropenem 500 mg IV every 8 hours. She is also receiving nystatin swish and swallow. She has received IVIG on this admission. PHYSICAL EXAMINATION: Vital Signs: Temperature is 98.2 degrees, pulse rate 108, respiratory rate 17, blood pressure 149/66, O2 saturation is 95% on room air. General: This is a chronically ill- appearing elderly female. She is sitting up in the bed currently in no acute distress. HEENT: Atraumatic and normocephalic. She does have a cloudy sclerae noted to the right eye. Conjunctiva are pale. Oral mucous membranes have a brown and white coating noted to the tongue. Neck: Supple. Trachea is midline. Cardiovascular: Heart rate and rhythm are regular and fast. Sinus tachycardia on the monitor. Respiratory: Lung sounds are clear in the upper lobes. Diminished in the bases. She has an occasional dry cough. Abdomen: Soft, flat and tender to palpation. Bowel sounds are active. Neurologic: She is awake, alert and oriented. Able to move all extremities with generalized weakness noted. There is a PICC to the right upper arm. That site is without edema or erythema. LABORATORY DATA AND X-RAY: Today her white count is 3.58, hemoglobin 8.1 platelet count 157,000. Creatinine is 0.3, estimated GFR is greater than 60. A throat swab from yesterday shows a negative group A strep rapid antigen. Blood cultures were drawn yesterday and are preliminary. Chest x-ray today is stable with an unchanged right perihilar opacity. No new consolidation. ASSESSMENT AND PLAN: Ms. Pizarro is being treated for a stubborn pneumonia to the right perihilar region. The pneumonia regimen was changed yesterday, which includes Zyvox and meropenem, which we will continue. She also has an immunoglobulin deficiency and has received IVIG on this admission. There is also an esophageal biopsy that showed herpes viral infection, so we will continue acyclovir. She also has an oral candidiasis and is receiving nystatin swish and swallow. These plans have been discussed with and recommended by Dr. Sultana. COMORBIDITIES: For Ms. Pizarro include that she is elderly, with protein-calorie malnutrition, COPD, and history of tongue cancer with radiation therapy. Dictated by CEM Ariza for Julio Cesar Sultana MD cc: Julio Cesar Sultana MD [facility]
[2019-03-20] MEDS: ZYVOX 600 MG/D5W 600 MG/300 ML IVPB IV SCH ×2 (01:14→13:10)
[2019-03-20] MEDS: MERREM 500 MG in NS 50 ML IV SCH ×4 (01:14→23:49)
[2019-03-20] MEDS: DUONEB (A & A) INH PRN ×2 (04:00→21:00)
[2019-03-20] MEDS: NEXIUM IV SCH ×2 (04:35→15:23)
[2019-03-20] MEDS: SODIUM CHLORIDE 0.9% INJ SCH (04:35)
[2019-03-20] MEDS: ZOVIRAX IV SCH ×3 (04:36→20:22)
[2019-03-20] MEDS: NS IV SCH ×3 (04:36→20:22)
[2019-03-20] MEDS: OFIRMEV 1000 MG/ISOTONIC SOLN 1,000 MG/100 ML BOTTLE IV PRN ×2 (07:41→20:22)
--- NOTE | 2019-03-20 07:41 | Diag Imaging Result Doc PS360 ---
CHEST-PORTABLE - 03/20/2019 INDICATION: pneumonia COMPARISON: 03/19/2019 FINDINGS: Stable right PICC line. There is severe worsening in right perihilar and lower lobe infiltrate. No significant infiltrate on the left side. There is pulmonary vascular congestion. Heart size remains top normal. No large pleural effusion. IMPRESSION: Significant worsening right perihilar and lower lobe infiltrate. Pulmonary vascular congestion. Electronically signed by Sancho Lincoln 03/20/2019 7:39 AM
[2019-03-20] MEDS ORDERED: LASIX IV ONE (08:05)
[2019-03-20 08:21] LABS: BASO# 0.01 X1000 (0.0-0.2); BASO% 0.2 % (0.0-0.8); EOS# 0.02 X1000 (0.0-0.7); EOS% 0.4 % (0.0-10.0); HEMATOCRIT 26.3 % (37.0-47.0); HEMOGLOBIN 8.3 g/dL (12.0-16.0); IMM GRAN# 0.02 X1000 (0.0-0.04); IMM GRAN% 0.4 % (0.0-0.5); LYMPH# 0.33 X1000 (1.2-3.4); LYMPH% 7.3 % (20.5-51.1); MCH 28.3 PG (27-31); MCHC 31.6 g/dL (33-37); MCV 89.8 FL (81-99); MONO# 0.36 X1000 (0.11-0.59); MONO% 7.9 % (1.7-9.3); MPV 9.3 FL (7.4-10.4); NEUT# 3.81 X1000 (1.4-6.5); NEUT% 83.8 % (42.2-75.2); PLT 175 X1000 (130-400); RBC 2.93 XMIL (4.2-5.4); RDW 15.9 % (11.5-14.5); WBC 4.55 X1000 (4.8-10.8)
[2019-03-20 08:26] LABS: AGAP 11; BUN 10 mg/dL (8-22); CHLORIDE 98 mmol/L (98-107); COSMO 277; CREATININE 0.2 mg/dL (0.5-0.9); ESTIMATED GFR > 60; GLUCOSE 142 mg/dL (70-104); POTASSIUM 3.7 mmol/L (3.5-5.1); SODIUM 138 mmol/L (136-145); TCO2 29 mmol/L (25-35)
[2019-03-20 08:36] LABS: MAGNESIUM 1.9 mg/dL (1.5-2.7); PHOSPHORUS 2.3 mg/dL (2.7-4.5)
[2019-03-20] MEDS: TIMOPTIC 0.25% OPH SOLUTION LEFT EYE SCH ×2 (09:07→20:22)
[2019-03-20] MEDS: MYCOSTATIN SUSP PO SCH ×4 (09:07→20:23)
[2019-03-20] MEDS: ANUSOL-HC CREAM PR SCH ×2 (09:08→20:23)
[2019-03-20] MEDS: ANUSOL-HC SUPP PR SCH ×2 (09:09→20:28)
[2019-03-20] MEDS: RESTASIS 0.05% OPH DROPS BOTH EYES SCH ×2 (09:17→20:23)
[2019-03-20] MEDS: CLINIMIX E 4.25%-5% SOLUTION 1,000 ML IV SCH ×2 (09:36→23:48)
--- NOTE | 2019-03-20 10:44 | Extremity Venous Study ---
PROCEDURE NAME: Venous U/S Bilateral Legs - 03/19/2019 REQUESTING PHYSICIAN: Dr. Mena. MOWER SHARPENER: Kvng. INDICATION: History of left leg DVT. EQUIPMENT: [employer] Vivid E9 ultrasound system a 9 L-D transducer. FINDINGS: Images of the bilateral lower extremity venous systems were obtained in both sagittal and transverse planes. Doppler was used to evaluate veins for spontaneity, phasicity, respiratory excursion, and digital augmentation. There appears to be no obvious superficial or deep venous thrombosis noted. There appears to be normal flow. The patient's body habitus does make it difficult to scan per the mold maintenance technician's note. INTERPRETATION: Essentially normal bilateral lower extremity venous study, although patient's small body habitus and weight makes studies difficult. cc: MD Devi Martinez MD
[2019-03-20] MEDS: FOLIC ACID 1 MG in NS 50 ML IV SCH (11:32)
--- NOTE | 2019-03-20 12:35 | PROVIDER PROGRESS NOTE ---
Progress Note Evaluation time: [id number] 03/20/2019 SUBJECTIVE: The patient is lying in bed comfortable with her son at the bedside. She states she is feeling better with the pain on the LLQ relieving and sore throat recovering. She did develop fever last night and this morning. She reports no cough, SOB, chest pain or palpitation. OBJECTIVE: Vital Signs: Temperature 100.1 degree, BP 166/67, NJ 105, RR 22, and SaO2 99% on room air. General: Appears chronically ill appearing elderly lying in bed in no acute distress. HEENT: Atraumatic, normocephalic. Left pupil is regular, round, and reactive to light. 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 Mucosa pink and moist. Some black color noted on the top of the tongue. Respiratory: Breathing is even but very shallow. No accessory muscle use. Clear to auscultation. Cardiovascular: Regular rate and rhythm. GASTROINTESTINAL: Soft, nondistended with some tenderness on the left lower jhon drant. Bowel sounds present in all 4 quadrants. Extremities: No pedal edema, no cyanosis, no clubbing but cool to touch. Dorsalis pedis 1+ bilaterally. Neurologic: Alert and oriented x3. Speech fluent. Follows commands. LABS: WBC 4.55, Hgb 8.3, Hct 26.3, Platelets 175,000. Sodium 138, potassium 3.7, chloride 98, CO2 29, BUN 10, Creatinine 0.2, glucose 142. IMAGING: Chest X-ray shows Significant worsening right perihilar and lower lobe infiltrate. Pulmonary vascular congestion. ASSESSMENT: 1. Mediastinal left axillary and right hilar adenopathy. 2. Right perihilar pneumonia with right pleural effusion. 3. Esophagitis. 4. Chronic obstructive pulmonary disease stable. No exacerbation at this time. PLAN: 1. Continue antibiotics per Dr. Sultana for pneumonia. 2. Repeat CT after completing antibiotic therapy. 3. Patient will need outpatient PET scan. 4. Continue GI and DVT prophylaxis. Thank you for the consult! (Siomara Salinas) Joint Evaluation as above 30 minutes (Kristina Mojica I.)
[2019-03-20] MEDS: LOVENOX SUBQ SCH (13:11)
--- NOTE | 2019-03-20 14:33 | INFECTIOUS DISEASE PROGRESS NO ---
DATE: 03/20/2019 PRESENT ILLNESS: The patient is being treated for a right-sided pneumonia. It should be noted that the patient does choke a lot when she eats and, therefore, the pneumonia may well be due to aspiration. The patient also has an immunoglobulin deficiency, herpes virus esophagitis, and oral candidiasis. MEDICATIONS: The patient is on acyclovir, Zyvox, and meropenem for now 2 days of all three of the antimicrobial agents. The patient also is receiving nystatin swish and swallow and during this admission, the patient has received IVIG. PHYSICAL EXAMINATION: Vital Signs: Temperature is 100.2 degrees, pulse 87, respirations 26, blood pressure 118/56. General: This is a chronically ill-appearing, elderly female. She is in no acute distress today. Head, Eyes, Ears, Nose, and Throat: She can hear my spoken words and see near objects. She still has a black coating of the tongue. Neck: No pain with movement. Lungs: Clear to auscultation. Cardiovascular: Heart rate is regular. Abdomen: Soft and not tender. Neurologic: The patient is arousable. She can move her extremities. There is no tremor. Extremities: The patient has a PICC in the right arm. The site is not erythematous or purulent. LAB AND X-RAY: Chest x-ray shows worsening of the right-sided infiltrate. CBC shows a white count of 4550, hemoglobin 8.3, and platelet count 175,000. Creatinine is 0.2. GFR is greater than 60. ASSESSMENT AND PLAN: The patient is being treated for pneumonia with Zyvox and meropenem. She is being treated for her herpes esophagitis with intravenous acyclovir. She is receiving nystatin for the patient's oral candidiasis. As mentioned above, the patient, during this admission, has received an immunoglobulin infusion and will not require another one for at least 4 to 6 weeks. COMORBIDITIES: The patient is elderly. She has protein calorie malnutrition, chronic obstructive pulmonary disease, aspiration, and a history of tongue cancer treated with radiation therapy. cc: Julio Cesar Sultana MD
--- NOTE | 2019-03-20 15:56 | PROGRESS NOTE ---
DATE: 03/20/2019 SUBJECTIVE: Ms. Pizarro was admitted on 03/10/2019. Came in with abdominal pain, urinary symptoms. Patient of Dr. Agata Frye. A 78-year-old female with a past medical history of tongue cancer, 35 radiation treatments this year, recent lung biopsy that was inconclusive. She also had a left leg DVT this year. She is on Eliquis. 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 She is taking methotrexate for that. Recently at [facility] in February of 2019. She was there for back pain, urinary symptoms. She was discharged 02/28/2019 to a rehab facility at [facility] in [place]. States that Tuesday this past week before admission she started having burning abdominal pain, treated for a urinary tract infection. Family states she also had pneumonia at some point and was treated with Levaquin. She presented to the emergency room with abdominal and back pain on 03/10/2019. Patient has a history of compression fracture at T12. Seen by Ortho last admission. Urinalysis in the ER showed trace protein in the urine, positive for nitrites. Also a large amount of leukocytes in the urine. Sodium in the emergency room was 135, BUN 6, creatinine was 0.4. White blood cell count 5,000. CT of the abdomen and pelvis was done which showed severe constipation, several rectal stone impactions. She did have a small right pleural effusion and some COPD noted. The patient complained of tenderness along her abdomen. Had a Stanford catheter placed, shari color urine. Admission diagnoses were: 1. Urinary tract infection. Placed on IV hydration and ceftriaxone 1 g daily. 2. Constipation. Given Dulcolax suppositories and bowel regimen. The patient had some hemorrhoid complaints and so was put on some Anusol suppositories, Anusol cream. 3. Dysphagia, trouble swallowing. They put her on a thickened diet. 4. Hypothyroidism. 5. Uveitis for which she is taking methotrexate and she has her eye drops. 6. Deep venous thrombosis prophylaxis. She states she is feeling better. OBJECTIVE: Vital signs: She remains afebrile, temperature 98.5 degrees, pulse 98, respirations 20, blood pressure 135/78. HEENT: Pupils are equal. Lungs: Clear in all lung burris. Cardiovascular: Regular rhythm and rate without murmur or S3. Abdomen: Soft. Skin: Warm and dry. Urine output was 5300 mL. ASSESSMENT AND PLAN: 1. Ms. Pizarro is treated for right-sided pneumonia as well as immunoglobulin deficiency. She is doing a little bit better. She has some perihilar pneumonia. She is given 1 g of IV Rocephin and some IV vancomycin per pharmacy. She has also received some IV immunoglobulin. 2. Immunoglobulin deficiency. 3. Cricopharyngeal achalasia. Gastroenterology is following. 4. Chronic constipation and abdominal pain. Continue her bowel regimen. 5. Chronic obstructive pulmonary disease. Bronchodilator therapy. 6. Hypothyroidism. On Synthroid. 7. Thoracic compression fracture, T12. Has a back brace. Continue her GI prophylaxis. REVIEW OF HER ORDERS: On linezolid 600 mg IV q.12, Nexium 40 mg IV q.12, and on Clinimix at 75 mL an hour. Getting her cyclosporine eye drops 0.05% both eyes 1 drop twice a day, Zovirax 200 mg IV q.8. Continue present regimen. cc: Jose Angel Hunt MD
[2019-03-21] MEDS: ZYVOX 600 MG/D5W 600 MG/300 ML IVPB IV SCH ×2 (02:22→12:40)
[2019-03-21] MEDS: NEXIUM IV SCH ×2 (04:17→15:25)
[2019-03-21] MEDS: SODIUM CHLORIDE 0.9% INJ SCH ×2 (04:17→15:26)
[2019-03-21] MEDS: NS IV SCH ×3 (04:18→21:25)
[2019-03-21] MEDS: ZOVIRAX IV SCH ×3 (04:18→21:25)
[2019-03-21] MEDS: MORPHINE IV PRN ×2 (05:30→16:49)
[2019-03-21] MEDS ORDERED: APRESOLINE IV PRN (06:04)
[2019-03-21] MEDS: DUONEB (A & A) INH PRN ×3 (07:37→15:46)
[2019-03-21] MEDS: MERREM 500 MG in NS 50 ML IV SCH ×2 (08:09→15:26)
[2019-03-21] MEDS: ANUSOL-HC CREAM PR SCH ×2 (08:18→20:08)
[2019-03-21] MEDS: CHLORASEPTIC SPRAY MT PRN (08:18)
[2019-03-21] MEDS: MYCOSTATIN SUSP PO SCH ×4 (08:18→20:08)
[2019-03-21] MEDS: TIMOPTIC 0.25% OPH SOLUTION LEFT EYE SCH ×2 (08:19→20:08)
[2019-03-21] MEDS: ANUSOL-HC SUPP PR SCH ×2 (08:19→20:07)
[2019-03-21] MEDS: RESTASIS 0.05% OPH DROPS BOTH EYES SCH ×2 (08:20→20:08)
--- NOTE | 2019-03-21 09:18 | PROGRESS NOTE ---
DATE: 03/21/2019 SUBJECTIVE: Ms. Pizarro would like to try soft diet. She has remained afebrile last night. OBJECTIVE: Vital signs: Temperature 98 degrees, pulse 109, respirations 16, blood pressure 187/69. HEENT: Pupils are equal and round. Lungs: Clear in all lung burris. Cardiovascular: Regular rhythm and rate without murmur or S3. ASSESSMENT AND PLAN: 1. Treating for right-sided pneumonia. She has immunoglobulin deficiency. She is doing better. There is some perihilar infiltrates as well, getting Rocephin and vancomycin. 2. Immunoglobulin deficiency. Giving her IV immunoglobulin. 3. Cricopharyngeal achalasia. GI is following. 4. Chronic constipation and abdominal pain. Continue bowel regimen. 5. Chronic obstructive pulmonary disease. Continue bronchodilator therapy. 6. Hypothyroidism. 7. Thoracic compression fracture T12. REVIEW OF ORDERS: So we will try soft diet. She is on acyclovir 200 mg IV 8 hours. She is getting Clinimix 75 mL an hour, Nexium 40 mg IV q.12, meropenem 500 mg IV q.8, linezolid 600 mg IV q.12. Her chest x-ray from yesterday, significant worsening in right perihilar and lower lobe infiltrate. There was a question whether this pneumonia is due to aspiration because of her trouble with swallowing. cc: Jose Angel Hunt MD
[2019-03-21 09:38] LABS: BASO# 0.01 X1000 (0.0-0.2); BASO% 0.3 % (0.0-0.8); EOS# 0.01 X1000 (0.0-0.7); EOS% 0.3 % (0.0-10.0); HEMOGLOBIN 7.9 g/dL (12.0-16.0); IMM GRAN# 0.03 X1000 (0.0-0.04); IMM GRAN% 0.8 % (0.0-0.5); LYMPH% 5.2 % (20.5-51.1); MCH 28.1 PG (27-31); MCHC 31.6 g/dL (33-37); MONO# 0.45 X1000 (0.11-0.59); MONO% 11.7 % (1.7-9.3); MPV 8.7 FL (7.4-10.4); NEUT# 3.14 X1000 (1.4-6.5); NEUT% 81.7 % (42.2-75.2); PLT 188 X1000 (130-400); RBC 2.81 XMIL (4.2-5.4); RDW 16.3 % (11.5-14.5); WBC 3.84 X1000 (4.8-10.8)
[2019-03-21 09:50] LABS: AGAP 13; BUN 13 mg/dL (8-22); CHLORIDE 97 mmol/L (98-107); COSMO 280; CREATININE 0.2 mg/dL (0.5-0.9); ESTIMATED GFR > 60; GLUCOSE 133 mg/dL (70-104); POTASSIUM 3.6 mmol/L (3.5-5.1); SODIUM 139 mmol/L (136-145); TCO2 29 mmol/L (25-35)
[2019-03-21] MEDS: CALMOSEPTINE OINTMENT TOP PRN (11:02)
[2019-03-21] MEDS: FOLIC ACID 1 MG in NS 50 ML IV SCH (12:23)
[2019-03-21] MEDS: CLINIMIX E 4.25%-5% SOLUTION 1,000 ML IV SCH (12:26)
[2019-03-21] MEDS: LOVENOX SUBQ SCH (14:48)
--- NOTE | 2019-03-21 14:51 | INFECTIOUS DISEASE PROGRESS NO ---
DATE: 03/21/2019 PRESENT ILLNESS: The patient has a right-sided pneumonia, immunoglobulin deficiency, herpes virus esophagitis, and oral candidiasis. MEDICATIONS: The patient is on IV acyclovir, Zyvox, and meropenem now for 3 days. The patient also is receiving nystatin swish and swallow and the patient has received during this admission IVIG. PHYSICAL EXAMINATION: Vital Signs: Earlier, temperature was 102 degrees, now it is 99, pulse 106, respirations 22, blood pressure 146/66. General: This is a chronically ill and malnourished-appearing, elderly female. Head/eyes/ears/nose/throat: She can hear my spoken words and see near objects. She still has a black coating on her tongue. Neck: No meningismus. Lungs: Clear to auscultation. Cardiovascular: Heart rate is regular. Abdomen: Soft and nontender. Neurologic: The patient is alert. She can move her extremities. There is no tremor. Extremities: Patient has a PICC in the right arm. The site is not erythematous or tender. LAB AND X-RAY: There is no x-ray for today. CBC shows a white count of 3840, hemoglobin 7.9, platelet count 188,000, creatinine is 0.2. GFR is greater than 60. Blood cultures are negative and cultures for group A strep throat infection are negative. ASSESSMENT AND PLAN: I am planning on continuing Zyvox and meropenem for the patient's pneumonia and IV acyclovir for the patient's herpes esophagitis and nystatin for the patient's oral candidiasis. The patient has an immunoglobulin deficiency but she has received IVIG during this admission and will not need another infusion for it for probably 6 weeks. COMORBIDITIES: The patient is elderly. She looks malnourished. She has chronic obstructive pulmonary disease. She also aspirates. She has a history of tongue cancer, which was treated with radiation therapy. cc: Julio Cesar Sultana MD
[2019-03-21] MEDS: OFIRMEV 1000 MG/ISOTONIC SOLN 1,000 MG/100 ML BOTTLE IV PRN (16:16)
[2019-03-22] MEDS: CLINIMIX E 4.25%-5% SOLUTION 1,000 ML IV SCH ×2 (00:26→14:10)
[2019-03-22] MEDS: MERREM 500 MG in NS 50 ML IV SCH ×3 (00:29→15:54)
[2019-03-22] MEDS: ZYVOX 600 MG/D5W 600 MG/300 ML IVPB IV SCH ×2 (00:36→12:46)
[2019-03-22] MEDS: MORPHINE IV PRN ×2 (04:13→12:43)
[2019-03-22] MEDS: NEXIUM IV SCH ×2 (04:13→14:53)
[2019-03-22] MEDS: SODIUM CHLORIDE 0.9% INJ SCH ×2 (04:13→14:52)
[2019-03-22] MEDS: NS IV SCH ×3 (04:21→20:11)
[2019-03-22] MEDS: ZOVIRAX IV SCH ×3 (04:21→20:11)
--- NOTE | 2019-03-22 07:13 | Diag Imaging Result Doc PS360 ---
CHEST-PORTABLE - 03/22/2019 INDICATION: pneumonia COMPARISON: 03/20/2019 FINDINGS: Stable right PICC line in good position. Stable advanced COPD. There has been improvement in the bilateral central and basilar infiltrates, right greater than left. Heart size remains top normal. There are trace pleural effusions. IMPRESSION: Improvement in the central and bibasilar infiltrates suggesting pulmonary edema. No new abnormality. Electronically signed by Sancho Lincoln 03/22/2019 7:11 AM
[2019-03-22] MEDS: DUONEB (A & A) INH PRN ×2 (07:39→15:43)
[2019-03-22] MEDS: ANUSOL-HC CREAM PR SCH ×2 (08:22→20:11)
[2019-03-22] MEDS: ANUSOL-HC SUPP PR SCH ×2 (08:23→20:11)
[2019-03-22] MEDS: RESTASIS 0.05% OPH DROPS BOTH EYES SCH ×2 (08:23→20:12)
[2019-03-22] MEDS: TIMOPTIC 0.25% OPH SOLUTION LEFT EYE SCH ×2 (08:23→20:11)
[2019-03-22] MEDS: MYCOSTATIN SUSP PO SCH ×4 (08:23→20:11)
--- NOTE | 2019-03-22 08:55 | PROGRESS NOTE ---
DATE: 03/22/2019 Ms. Parish feels better today. She was able to swallow, tolerating her pureed diet. OBJECTIVE: Vital Signs: She has remained afebrile, temperature 98.2 degrees, pulse 86, respirations 16, blood pressure 179/82. HEENT: Pupils are equal and round. Lungs: Are clear in all lung burris. Cardiovascular: Regular rate without murmur or S3. Abdomen: Is soft. Skin: Is warm and dry. Urine output 6 L. Chest x-ray: Improvement in central bibasilar infiltrates suggesting pulmonary edema. No new abnormality. ASSESSMENT AND PLAN: 1. Right-sided pneumonia, immunoglobulin deficiencies, herpes virus, esophagitis and oral candidiasis. She is on IV acyclovir, Zyvox and meropenem and this is the 4th day. The patient receiving nystatin swish and swallow and seems to be improving. Her swallow seems to improve, which is encouraging. 2. Cricopharyngeal achalasia. I think this is secondary to herpetic infection as well and seems to be improving. 3. Chronic constipation, abdominal pain. Continue bowel regimen. She is having bowel movements. 4. Chronic obstructive pulmonary disease. No problem with air gas exchange. 5. Hypothyroidism. She appears to be euthyroid. Continue Synthroid. 6. Thoracic compression fracture T12. Aware. REVIEW OF HER ORDERS: She is still on the Clinimix. She is eating well. May be able to stop that. Was on the dopamine. She gets her cyclosporine eyedrops 0.05% both eyes b.i.d., folic acid 1 mg daily, meropenem 500 mg IV q.8, polyvinyl alcohol eye drops which is Tearisol she gets as needed and then Timoptic eyedrops 0.25% left eye b.i.d. She is on linezolid 600 mg IV q.12. Her blood cultures from 03/10 and 03/18 with no growth. Throat culture: There was no group A strep isolated, that was from the . She did have a culture that had a rapid antigen test that was negative. cc: Jose Angel Hunt MD
[2019-03-22] MEDS: FOLIC ACID 1 MG in NS 50 ML IV SCH (12:45)
[2019-03-22] MEDS: ZOFRAN IV PRN (13:06)
--- NOTE | 2019-03-22 14:17 | INFECTIOUS DISEASE PROGRESS NO ---
DATE: 03/22/2019 PRESENT ILLNESS: Ms Pizarro has been treated for pneumonia, herpes viral esophagitis, an immunoglobulin deficiency, and an oral candidiasis. MEDICATIONS: She is receiving acyclovir 200 mg IV every eight hours, Zyvox 600 mg IV every 12 hours, meropenem 500 mg IV every eight hours, and Nystatin swish and swallow four times a day. PHYSICAL EXAMINATION: Vital Signs: Temperature is 98, pulse rate 86, respiratory rate 22, blood pressure 132/55, O2 saturation is 97% on room air. General: This is a chronically ill appearing elderly female. She is lying in the bed currently in no acute distress. HEENT: Sclera to the right eye is cloudy. Conjunctivae are pale. Oral mucous membranes are pink with a dark brown coating noted to her tongue. Respiratory: Lung sounds have mild rales in the upper lobes, diminished in the bases. No work of breathing is noted. Cardiovascular: Heart rate and rhythm are regular with normal sinus rhythm on the monitor. Abdomen: Soft, flat, and tender on palpation. She is complaining of some nausea. Extremities: She has a PICC line in place to the right upper arm. That site is without edema, erythema, or drainage. Neurologic: She is awake, alert, and appropriate. Able to move all extremities in the bed with generalized weakness noted. LABORATORY AND X-RAY: No labs today but her chest x-ray shows improvement in central and bibasilar infiltrates, suggesting pulmonary edema with no new abnormalities. ASSESSMENT AND PLAN: Ms Pizarro is being treated for pneumonia using Zyvox and meropenem. The chest x-ray shows improvement in pulmonary edema, so we will go ahead and check a procalcitonin. She also has herpes esophagitis for which she is receiving intravenous acyclovir, which we will continue. Also, there is a brown coating on her tongue which has been there for a while, although her family states this is new on this admission. We will order Vashe swish and spit 30 mL before meals and at bedtime to be followed by Nystatin swish and swallow, as suggested by the Wound Care nurse. She has already received some IVIG on this admission, and the plan will be to recheck her levels in six to eight weeks. These plans have been discussed with and recommended by Dr. Sultana. COMORBIDITIES: Include that she is elderly with protein-calorie malnutrition, COPD, and history of tongue cancer with radiation therapy. Dictated by CEM Ariza for Julio Cesar Sultana MD cc: Julio Cesar Sultana MD [facility]
[2019-03-22] MEDS: LOVENOX SUBQ SCH (14:53)
--- NOTE | 2019-03-22 15:59 | PROVIDER PROGRESS NOTE ---
Progress Note Evaluation time: [id number] 03/22/2019 SUBJECTIVE: The patient is lying in bed complaining of nausea and abdominal pain, but overall she states she is feeling better. She apparently had a good appetite this morning and has been eating well per her son at the bedside. She reports no SOB, cough, chest pain or palpitation. She has been afebrile since last night. OBJECTIVE: Vital Signs: Temperature 98.6 degree, BP 130/68, [place] 91, RR 22, and SaO2 99% on room air. General: Appears chronically ill appearing elderly lying in bed complaining of nausea and abdominal pain. HEENT: Atraumatic, normocephalic. Left pupil is regular, round, and reactive to light. 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 Mucosa pink and moist. Some brown color noted on the top of the tongue. Respiratory: Breathing is even but very shallow. No accessory muscle use. Clear to auscultation. Cardiovascular: Regular rate and rhythm. Gastrointestinal: Soft, nondistended with some moderate pain below the epigastric area. Bowel sounds present in all 4 quadrants. Extremities: Trace pedal edema, no cyanosis, no clubbing but cool to touch. Dorsalis pedis 1+ bilaterally. Neurologic: Alert and oriented x3. Speech fluent. Follows commands. LABS: proBNP 2143. IMAGING: Chest X-ray shows improvement in the central and bibasilar infiltrates suggesting pulmonary edema. ASSESSMENT: 1. Mediastinal left axillary and right hilar adenopathy. 2. Right perihilar pneumonia with pulmonary edema. 3. Herpes esophagitis. 4. Chronic obstructive pulmonary disease stable. No exacerbation at this time. PLAN: 1. Continue antibiotics per Dr. Sultana for pneumonia. 2. Repeat CT after completing antibiotic therapy. 3. Patient will need outpatient PET scan. 4. Start incentive spirometry; encourage deep breathing and cough routinely. 5. Continue GI and DVT prophylaxis. Thank you for the consult!
[2019-03-23] MEDS: ZYVOX 600 MG/D5W 600 MG/300 ML IVPB IV SCH ×2 (01:02→14:31)
[2019-03-23] MEDS: MORPHINE IV PRN ×2 (01:06→17:50)
[2019-03-23] MEDS: CLINIMIX E 4.25%-5% SOLUTION 1,000 ML IV SCH ×2 (04:33→23:38)
[2019-03-23] MEDS: NEXIUM IV SCH ×2 (04:33→14:31)
[2019-03-23] MEDS: ZOVIRAX IV SCH ×3 (04:33→21:10)
[2019-03-23] MEDS: NS IV SCH ×3 (04:33→21:10)
--- NOTE | 2019-03-23 08:22 | PROGRESS NOTE ---
DATE: 03/23/2019 SUBJECTIVE: Ms. Pizarro is awake and she I think would like to be discharged today back to the [facility]. OBJECTIVE: Vital signs: Temperature is 97.8 degrees. She has remained afebrile, pulse 95, respirations 17, blood pressure 135/75. HEENT: Pupils are equal and round. Lungs: Are clear in all lung burris. Cardiovascular: Regular rate without murmur or S3. Abdomen: Soft. Skin: Is warm and dry. LABS: Urine output is 5800 mL. ASSESSMENT AND PLAN: 1. Mediastinal, left axillary and right hilar adenopathy. Right perihilar pneumonia, pulmonary edema, which seems to be improving. Continue current antibiotics. 2. Herpes esophagitis; she is on acyclovir. 3. Chronic obstructive pulmonary disease, respirations, air exchange and gas exchange seem to be stable. Plan is to repeat a CT scan. Will need an outpatient PET scan. Continue to work on her strength and ambulation. Reviewed her orders. I do not see any change. I think she is a resident of [facility], so trying to attempt to get her back. I believe she is probably going to have to stay the weekend, though. We will repeat a CT scan and see how we are doing with pneumonia. Continue current treatment. cc: Jose Angel Hunt MD
--- NOTE | 2019-03-23 09:14 | Diag Imaging Result Doc PS360 ---
CT THORAX W/O CONTRAST - 03/23/2019 INDICATION: SOB COMPARISON: 03/16/2019 FINDINGS: There is a right central line stable from prior. Heart size remains top normal with no pericardial effusion. There is a small right and trace left pleural effusion. There is a right infrahilar mass, slightly larger than prior. This measures about 2.6 x 3.1 cm. There is some reticulonodular infiltrate throughout all lobes of the right lung. There is also significant bronchitis and some interstitial opacification. There is a tiny focal infiltrate in the left upper lobe that was not present previously. There is stable diffuse mediastinal lymphadenopathy. Upper abdominal images appear normal. There are moderate degenerative changes of the spine. No acute or suspicious bony lesion. IMPRESSION: 1. Perhaps slight increase in the right hilar mass. Stable appearing reduced and lymphadenopathy. 2. New trace left pleural effusion. Small infiltrate in the left upper lobe. 3. Interstitial opacities throughout all lobes of the right lung, stable from prior. This exam was performed using automated exposure control, adjustment of mA or kV according to patient size, and/or use of iterative reconstruction technique Electronically signed by Sancho Lincoln 03/23/2019 9:12 AM
[2019-03-23] MEDS: MYCOSTATIN SUSP PO SCH ×4 (09:17→21:11)
[2019-03-23] MEDS: MERREM 500 MG in NS 50 ML IV SCH ×4 (09:17→16:22)
[2019-03-23] MEDS: ANUSOL-HC SUPP PR SCH ×2 (10:21→21:11)
[2019-03-23] MEDS: TIMOPTIC 0.25% OPH SOLUTION LEFT EYE SCH ×2 (10:21→21:11)
[2019-03-23] MEDS: ANUSOL-HC CREAM PR SCH ×2 (10:22→21:11)
[2019-03-23] MEDS: RESTASIS 0.05% OPH DROPS BOTH EYES SCH ×2 (10:27→21:11)
--- NOTE | 2019-03-23 12:26 | INFECTIOUS DISEASE PROGRESS NO ---
DATE: 03/23/2019 PRESENT ILLNESS: The patient has pneumonia, herpes viral esophagitis, an immunoglobulin deficiency, and oral candidiasis. MEDICATIONS: For the past 5 days, the patient has been on acyclovir, Zyvox, and meropenem. The patient also is on nystatin swish and swallow. PHYSICAL EXAMINATION: Vital Signs: Temperature is 98.2 degrees, pulse 93, respirations 16, blood pressure 173/62. General: This is a chronically ill-appearing elderly female. She is in no acute distress. Head, eyes, ears, nose, and throat: She can see near objects. She can hear my spoken words. The patient's tongue is still dry and has black discoloration to it. Neck: No pain with movement of her neck. Lungs: Clear to auscultation. Cardiovascular: Heart rate is regular. Abdomen: Soft and nontender. Extremities: Patient has a PICC in the right arm. The site is not erythematous or tender. Neurologic: The patient is awake she can move her extremities. There is no tremor. LAB AND X-RAYS: I do not see any lab or x-rays ordered for today. ASSESSMENT AND PLAN: Patient has pneumonia, herpes virus esophagitis, an immunoglobulin deficiency, and oral candidiasis. My plan is to continue Zyvox, meropenem, acyclovir and nystatin and 3 days from now get on the patient a CBC, a BMP, and a portable chest x-ray. A procalcitonin level was ordered for yesterday, the results of which are pending. COMORBIDITIES: The patient is malnourished. She has COPD. She also has a history of tongue cancer that was treated with radiation therapy. cc: Julio Cesar Sultana MD
[2019-03-23] MEDS: FOLIC ACID 1 MG in NS 50 ML IV SCH (12:48)
[2019-03-23] MEDS: SODIUM CHLORIDE 0.9% INJ SCH (14:32)
[2019-03-23] MEDS: LOVENOX SUBQ SCH (14:32)
[2019-03-23] MEDS: MBX SOLUTION MT PRN (21:24)
[2019-03-24] MEDS: MERREM 500 MG in NS 50 ML IV SCH ×3 (00:02→16:05)
[2019-03-24] MEDS: MORPHINE IV PRN ×2 (02:01→18:31)
[2019-03-24] MEDS: ZYVOX 600 MG/D5W 600 MG/300 ML IVPB IV SCH ×2 (03:36→14:32)
[2019-03-24] MEDS: NEXIUM IV SCH ×2 (03:37→14:32)
[2019-03-24] MEDS: ZOVIRAX IV SCH ×3 (05:00→20:54)
[2019-03-24] MEDS: NS IV SCH ×3 (05:00→20:54)
[2019-03-24] MEDS: TIMOPTIC 0.25% OPH SOLUTION LEFT EYE SCH ×2 (09:06→20:55)
[2019-03-24] MEDS: ANUSOL-HC SUPP PR SCH ×2 (09:06→20:55)
[2019-03-24] MEDS: MYCOSTATIN SUSP PO SCH ×4 (09:06→20:54)
[2019-03-24] MEDS: ANUSOL-HC CREAM PR SCH ×2 (09:06→20:55)
[2019-03-24] MEDS: RESTASIS 0.05% OPH DROPS BOTH EYES SCH ×2 (09:06→20:54)
--- NOTE | 2019-03-24 09:10 | PROGRESS NOTE ---
DATE: 03/24/2019 SUBJECTIVE: Ms. Pizarro is feeling better. She is eating her breakfast. No problem swallowing. Remains afebrile. She is a very encouraged. Feels like she is getting a little stronger. OBJECTIVE: Vital Signs: Temperature 97.2 degrees, pulse 84, respirations 20, blood pressure 176/64, but her blood pressures have been between 128 and 176/53-75. HEENT: Her pupils are equal. No distended neck veins. Respiratory: Lungs are clear anterolateral. Cardiovascular: Regular rate without murmur or S3. Abdomen: Soft skin is warm and dry. DIAGNOSTIC DATA: CT of her chest done yesterday, perhaps slight increase in the right hilar mass, stable appearing, reduced lymphadenopathy. New trace left pleural effusion, small infiltrate in the left upper lobe. Interstitial opacities throughout all lobes in the right lung. ASSESSMENT: 1. Pneumonia. Herpes viral esophagitis and immunoglobulin deficiency and oral candidiasis. The patient is now on the sixth day of acyclovir, Zyvox, meropenem. The patient is also on oral nystatin swish and swallow. She seems to be making good progress. 2. Mediastinal, left axillary and right hilar adenopathy, right perihilar pneumonia, pulmonary edema. PLAN: Dr. Mojica is following. The patient will need an outpatient PET scan and we started incentive spirometry. Continue current bronchodilators and pulmonary toilet. She has chronic obstructive pulmonary disease. Continue physical therapy. She was having some trouble with swallowing, which is improved. She is still on a soft diet. Continue physical therapy, hope to get her back to [facility] on Tuesday. Review of her lab from this morning, I do not see anything new. cc: Jose Angel Hunt MD
[2019-03-24] MEDS: DUONEB (A & A) INH PRN (11:21)
[2019-03-24] MEDS: FOLIC ACID 1 MG in NS 50 ML IV SCH (12:25)
[2019-03-24] MEDS: SODIUM CHLORIDE 0.9% INJ SCH (14:32)
[2019-03-24] MEDS: LOVENOX SUBQ SCH (14:32)
[2019-03-25] MEDS: MERREM 500 MG in NS 50 ML IV SCH ×3 (00:53→16:54)
[2019-03-25] MEDS: ZYVOX 600 MG/D5W 600 MG/300 ML IVPB IV SCH ×2 (02:38→17:43)
[2019-03-25] MEDS: NEXIUM IV SCH ×2 (02:39→17:43)
[2019-03-25] MEDS: MBX SOLUTION MT PRN ×2 (02:39→17:44)
[2019-03-25] MEDS: NS IV SCH (05:15)
[2019-03-25] MEDS: ZOVIRAX IV SCH (05:15)
--- NOTE | 2019-03-25 05:56 | Diag Imaging Result Doc PS360 ---
EXAM: CHEST-1 VIEW HISTORY: pneumonia TECHNIQUE: Portable chest single view COMPARISON: 03/22/2019 FINDINGS: The lungs are well expanded. No cardiomegaly. No change in the right-sided PICC line. Mild increased interstitial markings in the mid and lower right lung. No change in the hilar prominence on the right. No pleural effusions identified. IMPRESSION: Stable chest Electronically signed by Jb Scott 03/25/2019 5:54 AM
[2019-03-25 05:58] LABS: BASO# 0.01 X1000 (0.0-0.2); BASO% 0.2 % (0.0-0.8); EOS# 0.04 X1000 (0.0-0.7); EOS% 0.8 % (0.0-10.0); HEMATOCRIT 29.8 % (37.0-47.0); HEMOGLOBIN 9.1 g/dL (12.0-16.0); LYMPH# 1.99 X1000 (1.2-3.4); LYMPH% 41.4 % (20.5-51.1); MCH 28.3 PG (27-31); MCHC 30.5 g/dL (33-37); MCV 92.5 FL (81-99); MONO# 0.96 X1000 (0.11-0.59); MPV 8.8 FL (7.4-10.4); NEUT# 1.81 X1000 (1.4-6.5); NEUT% 37.6 % (42.2-75.2); PLT 314 X1000 (130-400); RBC 3.22 XMIL (4.2-5.4); RDW 17.2 % (11.5-14.5); WBC 4.81 X1000 (4.8-10.8)
[2019-03-25 06:29] LABS: AGAP 10; BUN 11 mg/dL (8-22); CALCIUM 8.4 mg/dL (8.8-10.2); CHLORIDE 98 mmol/L (98-107); COSMO 274; CREATININE 0.3 mg/dL (0.5-0.9); ESTIMATED GFR > 60; GLUCOSE 87 mg/dL (70-104); POTASSIUM 4.2 mmol/L (3.5-5.1); SODIUM 138 mmol/L (136-145); TCO2 30 mmol/L (25-35)
--- NOTE | 2019-03-25 07:21 | PROGRESS NOTE ---
DATE: 03/25/2019 SUBJECTIVE: Ms. Pizarro says she has had a pretty good night. Her back is uncomfortable. She would like to get up and sit up in a chair. I did reposition her bed. OBJECTIVE: She remains afebrile, temperature 98.2 degrees, pulse 80, respirations 16, blood pressure 176/52. Pupils are equal and round. Lungs are clear in all lung burris. Cardiovascular Examination: Regular rhythm and rate without murmur or S3. Abdomen is soft. Skin is warm and dry. Urine output was 3400 mL. Chest x-ray this morning, lungs are well-expanded. No cardiomegaly. No change in right-sided PICC line. Mild increased interstitial markings in the mid and lower right lung. No change in hilar prominence on the right. ASSESSMENT AND PLAN: 1. Pneumonia, herpes viral esophagitis, immunoglobulin deficiency, and oral candidiasis. The patient on 7th day of acyclovir, Zyvox, and meropenem. Hoping that we can get her back to [facility] on Tuesday. Continue her nystatin swish and swallow. 2. Mediastinal, left axillary and right hilar adenopathy, right perihilar pneumonia. 3. Dysphagia, which is improved. She is eating well. 4. Weakness and deconditioning. Continue physical therapy. Continue to try and get her up in a chair. We are planning to get an outpatient PET scan at some point. REVIEW OF HER ORDERS: I do not see any change. cc: Jose Angel Hunt MD
[2019-03-25] MEDS: MORPHINE IV PRN ×2 (07:38→13:03)
--- NOTE | 2019-03-25 09:21 | INFECTIOUS DISEASE PROGRESS NO ---
DATE: 03/25/2019 PRESENT ILLNESS: The patient has pneumonia, herpes viral esophagitis, an immunoglobulin deficiency, and oral candidiasis. MEDICATIONS: The patient has now been on acyclovir, Zyvox, and meropenem for 7 days. The patient also receives nystatin swish and swallow for possible oral candidiasis. PHYSICAL EXAMINATION: Vital Signs: Temperature is 97.6 degrees, pulse 89, respirations 17, blood pressure 127/48. General: This is a chronically ill-appearing, elderly female. She is sitting up in a chair today with her brace on, and is eating some breakfast. HEENT: She can see near objects. She can hear my spoken words. The patient's tongue still has some dark discoloration to it. Neck: She does not have any pain when she moves her neck. Lungs: Clear to auscultation. Cardiovascular: Regular heart rate. Abdomen: Soft and nontender. Extremities: The patient has a PICC in her right arm. The site is not erythematous or draining. Neurologic: The patient is awake. She can move her extremities. She does not have a tremor. IMAGING AND LABORATORY DATA: Chest x-ray shows increased right hilar mass. Also shows left upper lobe infiltrate and interstitial opacities. The patient's procalcitonin level is 0.29, which translates into being likely that she has pneumonia. CBC shows a white count of 4810, hemoglobin 9.1, platelet count 314,000. Creatinine 0.3. GFR is greater than 60. Chest x-ray shows increased size in the right hilar mass, a left upper lobe infiltrate, and generalized interstitial opacities. ASSESSMENT AND PLAN: The patient has pneumonia, which for now I am going to continue Zyvox and meropenem. She has herpes esophagitis. I am going to switch the patient to Valtrex, and have it crushed up and given in things like applesauce or ice cream. I am going to continue nystatin swish and swallow for her oral candidiasis. Finally, as regarding the patient's immunoglobulin deficiency, she has received intravenous immunoglobulin on this admission, so she should not need another dose of it for 6 weeks or so. Also plan to continue nystatin for the patient's oral candidiasis. COMORBIDITIES: The patient is malnourished. She has chronic obstructive pulmonary disease and a history of tongue cancer, which was treated with radiation therapy. cc: Julio Cesar Sultana MD
[2019-03-25] MEDS: MYCOSTATIN SUSP PO SCH ×4 (09:39→21:20)
[2019-03-25] MEDS: ANUSOL-HC SUPP PR SCH ×2 (09:39→21:20)
[2019-03-25] MEDS: RESTASIS 0.05% OPH DROPS BOTH EYES SCH ×2 (09:40→21:20)
[2019-03-25] MEDS: TIMOPTIC 0.25% OPH SOLUTION LEFT EYE SCH ×2 (09:40→21:21)
[2019-03-25] MEDS: ANUSOL-HC CREAM PR SCH ×2 (10:15→21:21)
[2019-03-25] MEDS: FOLIC ACID 1 MG in NS 50 ML IV SCH (13:02)
[2019-03-25] MEDS: LOVENOX SUBQ SCH (14:46)
[2019-03-25] MEDS: DUONEB (A & A) INH PRN (15:54)
[2019-03-25] MEDS: SODIUM CHLORIDE 0.9% INJ SCH (17:43)
[2019-03-25] MEDS: VALTREX PO SCH (18:10)
[2019-03-26] MEDS: MERREM 500 MG in NS 50 ML IV SCH ×2 (00:21→08:35)
[2019-03-26] MEDS: SODIUM CHLORIDE 0.9% INJ SCH (03:10)
[2019-03-26] MEDS: ZYVOX 600 MG/D5W 600 MG/300 ML IVPB IV SCH (03:10)
[2019-03-26] MEDS: NEXIUM IV SCH (03:10)
[2019-03-26] MEDS: VALTREX PO SCH (06:09)
--- NOTE | 2019-03-26 07:03 | INFECTIOUS DISEASE PROGRESS NO ---
DATE: 03/26/2019 PRESENT ILLNESS: The patient has pneumonia, herpes simplex esophagitis, an immunoglobulin deficiency, oral candidiasis, and possible bladder spasms. The patient may be having bladder spasms also. MEDICATIONS: The patient is receiving Zyvox and meropenem for the patient's pneumonia, and Valtrex for the herpes esophagitis. The patient has received these medications now for 8 days. The patient also is receiving nystatin swish and swallow for possible oral candidiasis. I have started the patient on Ditropan to treat possible bladder spasms today. PHYSICAL EXAMINATION: Vital Signs: Temperature is 98.2 degrees, pulse 75, respirations 18, blood pressure 149/57. General: This is a chronically ill-appearing, elderly female who appears somewhat malnourished. Head, Eyes, Ears, Nose, and Throat: She can hear my spoken words and see near objects. The patient's tongue still has dark discoloration to it. Neck: No meningismus. Lungs: Clear to auscultation. Cardiovascular: Regular heart rate. Abdomen: Soft and nontender. Pelvic: The patient is complaining of some pain in her pelvic area. She does have a Stanford catheter in place. There is no vaginal discharge. There is no erythema. Neurologic: The patient is awake. She can move her extremities. She does not have any tremor. IMAGING AND LABORATORY DATA: There is no new radiographic study this morning at this time. Also, there is no new lab this morning at this time either. ASSESSMENT AND PLAN: The patient has pneumonia and this is the 8th day of treatment. I think that the patient could be discharged and I do not think she would require any more than 8 days of the treatment that she has already had. Likewise, for her herpes esophagitis, this is the 8th day of treatment and I think she does not need any further treatment with that diagnosis. As for the patient's oral candidiasis, it does not seem that we are making any headway with the nystatin swish and swallow. I would probably stop it when she goes home and then she can possibly visit an ears, nose, and throat specialist and see what he or she thinks might be causing the problem on her tongue. The patient appears to have an immunoglobulin deficiency and after the patient is discharge I will repeat the immunoglobulin levels in 6-8 weeks. If the levels are low again she may be a candidate for IVIG infusions. COMORBIDITIES: Malnutrition, chronic obstructive pulmonary disease, history of tongue cancer treated with radiation therapy. cc: Julio Cesar Sultana MD MTDD
[2019-03-26] MEDS: RESTASIS 0.05% OPH DROPS BOTH EYES SCH (08:38)
[2019-03-26] MEDS: ANUSOL-HC CREAM PR SCH (08:39)
[2019-03-26] MEDS: MYCOSTATIN SUSP PO SCH (08:40)
[2019-03-26] MEDS: TIMOPTIC 0.25% OPH SOLUTION LEFT EYE SCH (08:40)
[2019-03-26] MEDS: ANUSOL-HC SUPP PR SCH (08:40)
[2019-03-26] MEDS ORDERED: DITROPAN PO SCH ×2 (09:00)
--- NOTE | 2019-03-26 09:26 | DISCHARGE SUMMARY ---
ADMISSION DATE: 03/10/2019 DISCHARGE DATE: 03/26/2019 HISTORY OF PRESENT ILLNESS: She is a patient of Dr. Agata Frye. She presented with abdominal pain and urinary symptoms. This is a 78-year-old, female with a past medical history of tongue cancer with 35 radiation treatments this year, recent lung biopsy that was inconclusive. She also had a left leg DVT in this past year. She is on Eliquis. 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 She is taking methotrexate for that. Recently, at [facility] in February 2019, she was there for back pain and urinary symptoms. She was discharged on 02/28/2019 to a rehab facility at [facility]. She states that on Tuesday this past week, a week before admission on 03/10/2019, she started having some burning abdominal pain. Treated for a urinary tract infection. Family states the patient also had pneumonia. At some point, they were treating with Levaquin. The patient presented to the emergency room with complaints of abdominal and back pain. Had a history of compression fracture at T12 and was seen by orthopedic on last admission in the hospital. Urinalysis in the ER showed patient had trace protein in the urine. She was positive for nitrites, large amount of leukocytes in the urine. Serum sodium in the ER was 135, BUN was 6, creatinine was 0.4. White blood cell count was 5000. CT of the abdomen and pelvis was done. It showed severe constipation, severe rectal stool impactions. She did have small right pleural effusion, some COPD noted. The patient was lying on the emergency room stretcher, was complaining of tenderness along her abdomen in the lower abdomen. She had a Stanford catheter. Urine was noted to be shari color and clear. She denied any chest pain. Denies any burning with urination but mainly abdominal and back pain. PAST MEDICAL HISTORY: 1. Folic acid deficiency. 2. Overactive bladder. 3. Uveitis and blindness in the right eye for which she is getting methotrexate. 4. Tongue cancer in 2019, received 35 radiation treatments. 5. Biopsy of the lung was inconclusive. 6. Left leg DVT, on Eliquis. 7. Osteoarthritis. 8. Osteopenia. 9. Diverticulosis. 10. Degenerative joint disease. 11. Spinal stenosis of L3, 4, 5, and T12 with a recent T12 compression fracture. She has been followed by Dr. Knutson. 12. History of hypertension. 13. History of hypothyroidism. SURGICAL HISTORY: 1. Recent tongue biopsy. 2. She also had a lung biopsy I believe which was inconclusive. 3. Eye surgery. 4. section. ADMISSION DIAGNOSES: 1. Urinary tract infection. Moved to the medical floor, was given intravenous hydration, and started on ceftriaxone. 2. Constipation. Given Dulcolax suppositories. Also gave her some Anusol suppository and cream because of some hemorrhoids. 3. Dysphagia, difficulty swallowing. Placed her on thickened diet and was planning on studying her swallowing. She was put on Clinimix for nutrition. 4. Hypothyroidism, on Synthroid, appeared to be euthyroid. 5. Uveitis, blind in her right eye. Continue her drops and she will go back on her methotrexate when able. 6. Deep venous thrombosis prophylaxis was applied. 7. Gastrointestinal prophylaxis was given. HOSPITAL COURSE: She had a GI consult. Their impression was fecal impaction and dysphagia, and started her on MiraLAX daily, soapsuds enemas twice a day. Continue the Dulcolax rectal suppositories. Agree with the treatment for a urinary tract infection. Put on ceftriaxone and a barium swallow was ordered. Abdominal x-ray on 03/12/2019 revealed constipation. 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 Repeat abdominal x-ray on 03/12/2019, mild constipation improvement. Bronchopneumonia on the right side. CT of her chest on 03/12/2019, right perihilar infiltrate with tree-in-bud opacities suggestive of pneumonia and bronchiolitis. Mildly prominent right hilum. Several borderline mildly prominent lymph nodes. They are nonspecific and probably reactive. Infectious disease was consulted on 03/13/2019. Impression was right perihilar pneumonia and also immunoglobulin deficiency. Started the patient on cefepime and vancomycin. Decreased her cefepime to 1 g IV q.12. Continued the Clinimix. I did feel she had protein calorie malnutrition. She was having a difficult time swallowing. Dr. Cartwright did an EGD and found esophagitis at the gastroesophageal junction. A biopsy was performed. Stomach and the duodenum were normal. She had a sigmoidoscopy done. Large amount of solid/liquid brown stool found throughout the sigmoid and descending colon. Irrigation performed with 1.5 L of water throughout the left colon. Diverticulosis noted through the sigmoid colon and rectal fecal impaction. She was continued on MiraLAX 17 g p.o. b.i.d., and we were able to advance her diet. She did have some oral thrush and started her on nystatin swish and swallow. She showed steady improvement. CT of the chest on 03/16/2019, stable mediastinum and left axillary adenopathy, right hilar adenopathy, worsening perihilar pneumonia on the right, slightly worse right pleural effusion. Dr. Mojica, asbestos shingle roofer, was consulted in regards to her mediastinal, left axillary and right hilar adenopathy, right perihilar pneumonia, and right pleural effusion. He agreed to continue the antibiotics. We did an extremity venous study on 03/18/2019. Essentially normal bilateral lower extremity venous study, although the patient's body habitus and weight made the study difficult. She had a head and neck CT done. No evidence of acute disease intracranial. Stable thickening of the epiglottis, mediastinal adenopathy, worsening pneumonia and pneumonitis was appreciated at that time. She was in the unit. A chest x-ray repeated on 03/19/2019 showed a stable chest. She had a PICC line placed. Right perihilar opacity seen previously was unchanged. Another repeat chest x-ray on 03/20/2019, significant worsening of the right perihilar and lower lobe infiltrate. She was put on IV acyclovir and Zyvox. She had herpetic virus esophagitis discovered and oral candidiasis. She showed a steady improvement. Chest x-ray on 03/25/2019, no pleural effusions. Lungs well expanded. Mild increased interstitial markings in the right lung but improving in swallowing and feeling much stronger. [place] the patient could go back to the [facility]. DISCHARGE MEDICATIONS: She will get her eyedrops, Artificial Tears to both eyes q.4 hours p.r.n., Restasis 0.05% to both eyes twice a day, Nexium - we will give her 40 mg p.o. twice a day, Anusol- HC suppositories b.i.d. as needed, and see if we can stop her antibiotics. We will continue the Mycostatin suspension 5 mL 4 times a day and we will give her Valtrex 500 mg p.o. twice a day, determine how long we will give those. cc: Jose Angel Hunt MD
[2019-03-26 12:03] VITALS: BP 104/45
== END 2019-03-26 14:47 | DRG 388 ==
LOC: SUPCPDRO → ED 09:46 → 1N 14:05 → SUATTDRO 14:05 → ICU 03-18 14:08 → 3S 03-22 22:15
PROVIDERS: ATTEND Emergency Medicine

== ENCOUNTER 2019-11-14 14:40 | Inpatient (IN) ==
[2019-11-14] MEDS ORDERED: TYLENOL PO ONE (14:52)
[2019-11-14] MEDS ORDERED: NS 1,000 ML IV ONE (14:52)
[2019-11-14] MEDS ORDERED: MORPHINE IV ONE (14:57)
[2019-11-14] MEDS ORDERED: ZOFRAN IV ONE (14:57)
[2019-11-14] MEDS ORDERED: ZOSYN 4.5 GM in NS 100 ML IV ONE (14:57)
[2019-11-14 15:09] LABS: ALLEN TEST NO; BE 2.1 mmoll (-3.0-3.0); BLOOD TYPE ARTERIAL; HCO3-(ACT) 26.5 mmoll (20.0-26.0); METHB 1.4 % (0.0-1.5); O2(CT) 15.5 mL/dL (15.0-23.0); O2HB 95.4 % (95.0-99.0); PCO2(98.6) 33 mmHg (35-45); PO2(98.6) 78 mmHg (60-100); SAMPLE BLOOD; SAO2 98.5 % (95.0-100.0); THB 11.5 g/dL (11.5-17.4); pH(98.6) 7.49 (7.35-7.45)
[2019-11-14 15:10] LABS: MODALITY ROOM AIR
[2019-11-14 15:44] LABS: BASO# 0.01 X1000 (0.0-0.2); BASO% 0.1 % (0.0-0.8); EOS# 0.02 X1000 (0.0-0.7); EOS% 0.3 % (0.0-10.0); HEMATOCRIT 35.1 % (37.0-47.0); HEMOGLOBIN 11.4 g/dL (12.0-16.0); IMM GRAN# 0.07 X1000 (0.0-0.04); IMM GRAN% 0.9 % (0.0-0.5); LYMPH% 5.2 % (20.5-51.1); MCH 26.8 PG (27-31); MCHC 32.5 g/dL (33-37); MCV 82.4 FL (81-99); MONO# 0.44 X1000 (0.11-0.59); MONO% 5.7 % (1.7-9.3); MPV 7.9 FL (7.4-10.4); NEUT# 6.79 X1000 (1.4-6.5); NEUT% 87.8 % (42.2-75.2); PLT 239 X1000 (130-400); RBC 4.26 XMIL (4.2-5.4); RDW 15.7 % (11.5-14.5); WBC 7.73 X1000 (4.8-10.8)
[2019-11-14 15:51] LABS: INR 1.06; PROTIME 13.9 Seconds (11.0-16.0)
[2019-11-14 15:53] LABS: PTT 31.7 Seconds (22.3-41.8)
--- NOTE | 2019-11-14 16:31 | Diag Imaging Result Doc PS360 ---
CT T-SPINE/L-SPINE W/O CON - 11/14/2019 INDICATION: fall injury COMPARISON: 03/23/2019 FINDINGS: Thoracic spine: There is a stable high-grade central compression deformity at T12. This is compatible with an old osteoporotic fracture. No new fractures or subluxation. Stable advanced multilevel degenerative disc disease. Lumbar spine: There is a new high-grade compression fracture of L1. There is about 50% loss of height here. There is mild bony retropulsion at the superior endplate. This only causes mild narrowing, the central canal still measures 11.3 x 19.2 mm. IMPRESSION: New compression fracture at L1 with some mild bony retropulsion but no severe central canal stenosis. The compression fracture is age-indeterminate but is certainly compatible with an acute fracture. This exam was performed using automated exposure control, adjustment of mA or kV according to patient size, and/or use of iterative reconstruction technique Electronically signed by Sancho Lincoln 11/14/2019 4:29 PM
[2019-11-14 16:37] LABS: AGAP 12; ALB/GLOB RATIO 1.2; ALBUMIN 3.8 g/dL (3.5-5.0); ALKALINE PHOSPHATASE 78 U/L (32-104); BUN 10 mg/dL (8-22); CALCIUM 9.5 mg/dL (8.8-10.2); CHLORIDE 96 mmol/L (98-107); COSMO 262; CREATININE 0.4 mg/dL (0.5-0.9); ESTIMATED GFR > 60; GLUCOSE 103 mg/dL (70-104); GOT 24 U/L (10-30); GPT 15 U/L (10-36); LIPASE 50 U/L (13-60); MAGNESIUM 2.4 mg/dL (1.5-2.7); POTASSIUM 4.4 mmol/L (3.5-5.1); SODIUM 131 mmol/L (136-145); TCO2 23 mmol/L (25-35); TOTAL BILIRUBIN 0.56 mg/dL (0.20-1.00); TOTAL PROTEIN 6.9 g/dL (6.3-8.3)
--- NOTE | 2019-11-14 17:22 | Diag Imaging Result Doc PS360 ---
EXAM: CHEST-PORTABLE - 11/14/2019 HISTORY: fever TECHNIQUE: Portable chest COMPARISON: 03/25/2019 FINDINGS: Heart size is normal. There are apparent COPD changes similar to prior. There is no consolidation, pleural effusion, or pneumothorax identified. There is a questionable small nodular density at the right upper lobe. IMPRESSION: Apparent COPD changes. No evidence of pneumonia. Questionable small nodular density at right upper lobe. Follow-up is recommended to see if this is a persistent finding. Electronically signed by Jermaine Shukla 11/14/2019 5:19 PM
[2019-11-14 17:38] LABS: URINE SOURCE CATH
[2019-11-14 17:42] LABS: BILIRUBIN URINE NEGATIVE (NEGATIVE); BLOOD URINE NEGATIVE (NEGATIVE); CLARITY CLEAR (CLEAR); COLOR YELLOW; GLUCOSE URINE NEGATIVE (NEGATIVE); KETONE URINE NEGATIVE (NEGATIVE); LEUKOCYTES URINE NEGATIVE (NEGATIVE); NITRITE URINE NEGATIVE (NEGATIVE); PROTEIN URINE TRACE mg/dL (NEGATIVE); UROBILINOGEN URINE 0.2 EU/dL (0.2-1.0)
[2019-11-14 17:45] LABS: URINE BACTERIA NEGATIVE /HFP; URINE EPITHELIAL CELLS <10 /HPF (<10); URINE RBC <10 /HPF (<10); URINE WBC <10 /HPF (<10)
[2019-11-14 17:46] LABS: URINE CAST NONE SEEN /LPF; URINE CRYSTAL NONE SEEN /HPF; URINE YEAST NONE SEEN /HPF
--- NOTE | 2019-11-14 18:02 | PROVIDER DOCUMENTATION ---
This chart was entered by Natali Denny Scribe, acting as scribe for Enzo Garcia MD. HPI-Fever - General Stated Complaint: vomiting blood, fever Time Seen by Provider: 11/14/19 14:49 Source: EMS Allergies/Adverse Reactions: Patient Allergies Allergy/AdvReac Type Severity Reaction Status Date / Time dextrose 5 % in water AdvReac Mild ITCHING Verified 11/14/19 17:10 [From Zyvox] linezolid [From Zyvox] AdvReac Mild ITCHING Verified 11/14/19 17:10 codeine AdvReac NAUSEA/VOMI Verified 11/14/19 17:10 TING prednisone AdvReac NAUSEA/VOMI Verified 11/14/19 17:10 TING Home Medications: Home Medication List Medication Instructions Recorded Confirmed Last Taken Type Cyclosporine [Restasis] 2 drp BOTH EYES BID 02/25/19 11/14/19 11/14/19 History Folic Acid 1 tab PO TID 02/25/19 11/14/19 11/14/19 History Methotrexate 8 tab PO DIRECTED 02/25/19 11/14/19 11/09/19 History Polyvinyl Alcohol/Povidone/Pf 1 ea OPHTHALMIC (EYE) Q4HR PRN 02/25/19 11/14/19 Unknown History [Refresh Classic Eye Drops] Prednisolone Acetate/Pf 1 droperette BOTH EYES DAILY 02/25/19 11/14/19 11/14/19 History [Prednisolone Acet 1% Eye Drop] Acetaminophen [Pain Reliever] 2 tab PO Q6H PRN 03/10/19 11/14/19 Unknown History Sennosides [Senna] 1 tab PO QHS 03/10/19 11/14/19 Unknown History Baclofen 10 mg PO Q8H PRN #20 tab 11/14/19 11/14/19 Unknown Rx Cetirizine [Zyrtec] 10 mg PO DAILY 11/14/19 11/14/19 11/14/19 History Clonazepam 0.5 mg PO QHS 11/14/19 11/14/19 11/13/19 History Gabapentin 100 mg PO QHS 11/14/19 11/14/19 11/13/19 History Levothyroxine [Synthroid] 50 microgm PO DAILY 11/14/19 11/14/19 11/14/19 History Meloxicam 15 mg PO DAILY 11/14/19 11/14/19 11/14/19 History Mirabegron [Myrbetriq] 25 mg PO DAILY 11/14/19 11/14/19 11/14/19 History Propylene Glycol/Peg 400/Pf 1 ea OPHTHALMIC (EYE) QHS 11/14/19 11/14/19 Unknown History [Systane 0.3-0.4% Eye Drops] Timolol Maleate [Timoptic] 1 drp OPH BID 11/14/19 11/14/19 11/14/19 History - History of Present Illness-Fever Nature of Presenting Problem: Patient is a 79 year old female who presents to the ED via EMS with fever. EMS states the halfway staff stated the patient vomited blood once prior to arrival. Patient was seen this morning in the ED after having a fall and was diagnosed with an L1 fracture. Fever Severity/Quality: reports: greater than 102 F Onset/Duration: reports: just prior to arrival Timing: reports: still present Severity: reports: mild Context: reports: from halfway Associated Symptoms: reports: vomiting (blood) Similar Symptoms Previously?: No Recently seen or treated by another doctor?: Yes Review of Systems - Adult - REVIEW OF SYSTEMS - ADULT Constitutional: reports: see HPI, fever Eyes: reports: no symptoms reported Ears, Nose, Mouth & Throat: reports: no symptoms reported Cardiovascular: reports: no symptoms reported Respiratory: reports: no symptoms reported Gastrointestinal: reports: see HPI, hematemesis Genitourinary: reports: no symptoms reported Musculoskeletal: reports: no symptoms reported Integumentary: reports: no symptoms reported Neurological: reports: no symptoms reported Psychiatric: reports: no symptoms reported Endocrine: reports: no symptoms reported Hematologic/Lymphatic: reports: no symptoms reported Allergic/Immunologic: reports: no symptoms reported All Other Systems: Reviewed and Negative Past History - Adult - PAST MEDICAL HISTORY-ADULT Review of Records: reports: Old Records Reviewed, Nursing Assessment Review, Medications Reviewed, Social history reviewed & non-contributory. Major Childhood Illnesses: reports: denies history Cardiovascular: reports: blood clots, hyperlipidemia Respiratory: reports: denies history Gastrointestinal: reports: GERD Obstetrical/Gynecological: reports: denies history Genitourinary: reports: denies history Musculoskeletal: reports: spinal fracture (L1) Neurological: reports: denies history Psychiatric: reports: denies history Endocrine/Immune: reports: thyroid disorder Other Conditions: reports: blindness (rt eye) - PRIOR SURGERIES/PROCEDURES Surgical/Procedure History: reports: , other (eye surgery) - IMMUNIZATION STATUS Childhood Immunizations: See Nurse Assessment Flu Vaccine: See Nurse Assessment - FAMILY HISTORY Family History: reviewed, not pertinent - SOCIAL HISTORY Smoking: denies Substance Use: denies Physical Exam-General - PHYSICAL EXAM-ADULT Initial Vital Signs Reviewed: Yes - CONSTITUTIONAL General Appearance: alert, no apparent distress. negative: slow to respond - EYES Eyes: other (post traumatic change to right eye). negative: scleral icterus - HEAD, EARS, NOSE, MOUTH & THROAT HENMT: normocephalic/atraumatic, other (dry mucous membranes) - RESPIRATORY Respiratory: chest non-tender, lungs clear, normal breath sounds. negative: wheezing - CARDIOVASCULAR Cardiovascular: tachycardia. negative: systolic murmur, extra beats - GASTROINTESTINAL (ABDOMEN) Abdominal Exam: normal bowel sounds, non tender, soft - MUSCULOSKELETAL Back Exam: vertebral tenderness (L1 point tenderness) Extremity: non-tender, normal inspection - SKIN Integumentary: normal color, normal turgor, warm/dry - NEUROLOGIC Neurologic: grossly normal - PSYCHIATRIC Psych/Mental Status: normal mood/affect, normal thought content, normal thought process, oriented x 3 Progress - PLAN OF CARE/RESULTS Progress/Plan/Lab Results: Vital Signs - 8 hr 11/14/19 15:37 Temperature 101.2 F H Pulse Rate 95 H Respiratory Rate 20 Blood Pressure 164/69 O2 Sat by Pulse Oximetry 95 11/14/19 16:30 Influenza Screen - Final Nasopharyngeal Laboratory Results - last 24 hr 11/14/19 11/14/19 11/14/19 15:00 15:25 15:25 WBC RBC Hgb Hct MCV MCH MCHC RDW Std Deviation Plt Count MPV Immature Gran % (Auto) Neut % (Auto) Lymph % (Auto) Burt % (Auto) Eos % (Auto) Baso % (Auto) Immature Gran # (Auto) Neut # (Auto) Lymph # (Auto) Burt # (Auto) Eos # (Auto) Baso # (Auto) PT INR PTT (Actin FS) Specimen Type ARTERIAL Sample Site R BRACHIAL pH 7.49 H pCO2 33 L pO2 78 HCO3 26.5 H Base Excess 2.1 Oxyhemoglobin 95.4 ABG O2 Sat (Calculated) 15.5 ABG O2 Saturation 98.5 ABG Carboxyhemoglobin 1.70 ABG Methemoglobin 1.4 Jose Angel Test NO A-a O2 Difference 30.0 Total Hemoglobin 11.5 Lactate 0.60 Liter Flow 0.0 Blood Gas Modality ROOM AIR FiO2 % 21.0 Sodium 131 L Potassium 4.4 Chloride 96 L Carbon Dioxide 23 L Anion Gap 12 BUN 10 Creatinine 0.4 L Estimated GFR/1.73 m2 > 60 BUN/Creatinine Ratio 25 Glucose 103 Calculated Osmolality 262 Calcium 9.5 Magnesium 2.4 Total Bilirubin 0.56 AST 24 ALT 15 Alkaline Phosphatase 78 Troponin T High Sens [id number]-P-[id number] Pept Total Protein 6.9 Albumin 3.8 Globulin 3.1 Albumin/Globulin Ratio 1.2 Lipase 50 Plasma Lactate 0.6 Urine Source Urine Color Urine Clarity Urine Turbidity Urine pH Ur Specific [place] Urine Protein Ur Glucose (Stick) Urine Ketones Ur Ketones (Stick) Urine Blood Urine Nitrite Urine Bilirubin Urine Urobilinogen Urobilinogen Dipstick Urine Leukocytes Urine WBC (Auto) Urine RBC (Auto) U Epithel Cells (Auto) Urine Bacteria (Auto) Urine Microscopic RBC Urine WBC Urine Microscopic WBC Ur Epithelial Cells Urine Crystals Urine Bacteria Urine Casts Urine Yeast Urine Glucose 11/14/19 11/14/19 11/14/19 15:25 15:25 15:25 WBC 7.73 RBC 4.26 Hgb 11.4 L Hct 35.1 L MCV 82.4 MCH 26.8 L MCHC 32.5 L RDW Std Deviation 15.7 H Plt Count 239 MPV 7.9 Immature Gran % (Auto) 0.9 H Neut % (Auto) 87.8 H Lymph % (Auto) 5.2 L Burt % (Auto) 5.7 Eos % (Auto) 0.3 Baso % (Auto) 0.1 Immature Gran # (Auto) 0.07 H Neut # (Auto) 6.79 H Lymph # (Auto) 0.40 L Burt # (Auto) 0.44 Eos # (Auto) 0.02 Baso # (Auto) 0.01 PT INR PTT (Actin FS) Specimen Type Sample Site pH pCO2 pO2 HCO3 Base Excess Oxyhemoglobin ABG O2 Sat (Calculated) ABG O2 Saturation ABG Carboxyhemoglobin ABG Methemoglobin Jose Angel Test A-a O2 Difference Total Hemoglobin Lactate Liter Flow Blood Gas Modality FiO2 % Sodium Potassium Chloride Carbon Dioxide Anion Gap BUN Creatinine Estimated GFR/1.73 m2 BUN/Creatinine Ratio Glucose Calculated Osmolality Calcium Magnesium Total Bilirubin AST ALT Alkaline Phosphatase Troponin T High Sens 11 [id number]-M-Pzexxnjvdxn Pept 531 H Total Protein Albumin Globulin Albumin/Globulin Ratio Lipase Plasma Lactate Urine Source Urine Color Urine Clarity Urine Turbidity Urine pH Ur Specific [place] Urine Protein Ur Glucose (Stick) Urine Ketones Ur Ketones (Stick) Urine Blood Urine Nitrite Urine Bilirubin Urine Urobilinogen Urobilinogen Dipstick Urine Leukocytes Urine WBC (Auto) Urine RBC (Auto) U Epithel Cells (Auto) Urine Bacteria (Auto) Urine Microscopic RBC Urine WBC Urine Microscopic WBC Ur Epithelial Cells Urine Crystals Urine Bacteria Urine Casts Urine Yeast Urine Glucose 11/14/19 11/14/19 11/14/19 15:25 16:25 16:46 WBC RBC Hgb Hct MCV MCH MCHC RDW Std Deviation Plt Count MPV Immature Gran % (Auto) Neut % (Auto) Lymph % (Auto) Burt % (Auto) Eos % (Auto) Baso % (Auto) Immature Gran # (Auto) Neut # (Auto) Lymph # (Auto) Burt # (Auto) Eos # (Auto) Baso # (Auto) PT 13.9 INR 1.06 PTT (Actin FS) 31.7 Specimen Type Sample Site pH pCO2 pO2 HCO3 Base Excess Oxyhemoglobin ABG O2 Sat (Calculated) ABG O2 Saturation ABG Carboxyhemoglobin ABG Methemoglobin Jose Angel Test A-a O2 Difference Total Hemoglobin Lactate Liter Flow Blood Gas Modality FiO2 % Sodium Potassium Chloride Carbon Dioxide Anion Gap BUN Creatinine Estimated GFR/1.73 m2 BUN/Creatinine Ratio Glucose Calculated Osmolality Calcium Magnesium Total Bilirubin AST ALT Alkaline Phosphatase Troponin T High Sens Hmk-F-Cfsedjvwmoj Pept Total Protein Albumin Globulin Albumin/Globulin Ratio Lipase Plasma Lactate Urine Source Cancelled CATH Urine Color Cancelled YELLOW Urine Clarity CLEAR Urine Turbidity Cancelled Urine pH Cancelled 8.0 Ur Specific [place] Cancelled 1.010 Urine Protein Cancelled TRACE A Ur Glucose (Stick) Cancelled Urine Ketones NEGATIVE Ur Ketones (Stick) Cancelled Urine Blood Cancelled NEGATIVE Urine Nitrite Cancelled NEGATIVE Urine Bilirubin Cancelled NEGATIVE Urine Urobilinogen 0.2 Urobilinogen Dipstick Cancelled Urine Leukocytes Cancelled Urine WBC (Auto) Cancelled Urine RBC (Auto) Cancelled U Epithel Cells (Auto) Cancelled Urine Bacteria (Auto) Cancelled Urine Microscopic RBC <10 Urine WBC NEGATIVE Urine Microscopic WBC <10 Ur Epithelial Cells <10 Urine Crystals NONE SEEN Urine Bacteria NEGATIVE Urine Casts NONE SEEN Urine Yeast NONE SEEN Urine Glucose NEGATIVE Orders Category Date Time Status [facility] Insertion ORDERED Care 11/14/19 14:51 Active Nursing- Obtain EKG once Care 11/14/19 14:49 Active Saline Loc NOW Care 11/14/19 14:49 Active CHEST-PORTABLE [RAD] Stat Exams 11/14/19 14:[address] T-SPINE/L-SPINE W/O CON [CT] Stat Exams 11/14/19 14:57 Completed MRI LUMBAR SPINE W/O CONTRAST [MRI] Stat Exams 11/14/19 16:59 Ordered ABG [RESP] Routine Lab 11/14/19 15:00 Completed BLOOD CULTURE [BLDCUL] Stat Lab 11/14/19 15:20 Results CBC WITH ELECTRONIC DIFF [HEME] Stat Lab 11/14/19 15:25 Completed COMPREHENSIVE METABOLIC PANEL [CHEM] Stat Lab 11/14/19 15:25 Completed DIRECT STREP Stat Lab 11/14/19 14:51 Ordered INFLUENZA SCREEN A/B Stat Lab 11/14/19 16:30 Completed LACTATE, PLASMA [CHEM] Stat Lab 11/14/19 15:25 Completed LIPASE [CHEM] Stat Lab 11/14/19 15:25 Completed MAGNESIUM [CHEM] Stat Lab 11/14/19 15:25 Completed MISCELLANEOUS TEST-LAB [RF] Stat Lab 11/14/19 17:56 Uncollected OCCULT BLOOD SCREENING [STOOL] Stat Lab 11/14/19 16:08 Uncollected PRO B-NATRIURETIC PEPTIDE Stat Lab 11/14/19 15:25 Completed PROTIME WITH INR [COAG] Stat Lab 11/14/19 15:25 Completed PTT [COAG] Stat Lab 11/14/19 15:25 Completed SPUTUM CULTURE WITH GRAM STAIN [RM] Stat Lab 11/14/19 14:50 Uncollected TROPONIN T HIGH SENSITIVITY Stat Lab 11/14/19 15:25 Completed 0.9% Sodium Chloride Inj [Ns] 1,000 ml Med 11/14/19 14:52 Discontinued IV 999 mls/hr Acetaminophen [Tylenol] Med 11/14/19 14:52 Discontinued 1,000 mg PO NOW ONE Morphine Med 11/14/19 14:57 Discontinued 2 mg IV NOW ONE Ondansetron [Zofran] Med 11/14/19 14:57 Discontinued 4 mg IV NOW ONE Piperacillin/Tazobactam [Zosyn] 4.5 gm Med 11/14/19 14:57 Discontinued 0.9% Sodium Chloride Inj [Ns] 100 ml IV NOW EKG [EKG] Stat Ther 11/14/19 14:49 Ordered Result Diagrams: 11/14/19 15:25 11/14/19 15:25 - REASSESSMENT Reassessment #1 Time Reassessed: 18:00 Status: improving (Given IVF bolus, IV vanc/zosyn. NO obvious source of fever. Will obtain sample for COVID-19) - EKG 1 Time of EKG reading by physician:: 16:56 EKG Read and Signed by:: Enzo Garcia EKG Interpretation (*Must complete 3 of following elements*): Abnormal Rate: 92 Rhythm: NSR [place]: normal QRS: RBB ME Interval: normal Comments: abnormal ECG - XRAY 1 XRAY Study: Chest Impression: Abnormal, See EMR Report ( EXAM: CHEST-PORTABLE - 11/14/2019 HISTORY: fever TECHNIQUE: Portable chest COMPARISON: 03/25/2019 FINDINGS: Heart size is normal. There are apparent COPD changes similar to prior. There is no consolidation, pleural effusion, or pneumothorax identified. There is a questionable small nodular density at the right upper lobe. IMPRESSION: Apparent COPD changes. No evidence of pneumonia. Questionable small nodular density at right upper lobe. Follow-up is recommended to see if this is a persistent finding. Electronically signed by Jermaine Shukla 11/14/2019 5:19 PM 11/14/19 [id number] Interpreting Physician: Jermaine Shukla MD Dictated Date/Time: 11/14/19 1716 cc: Enzo Garcia MD; Josefa Crockett) - CT/MRI 1 CT Study: Lumbar Spine, other (T-SPINE) Impression: See EMR Report ( CT T-SPINE/L-SPINE W/O CON - 11/14/2019 INDICATION: fall injury COMPARISON: 03/23/2019 FINDINGS: Thoracic spine: There is a stable high-grade central compression deformity at T12. This is compatible with an old osteoporotic fracture. No new fractures or subluxation. Stable advanced multilevel degenerative disc disease. Lumbar spine: There is a new high-grade compression fracture of L1. There is about 50% loss of height here. There is mild bony retropulsion at the superior endplate. This only causes mild narrowing, the central canal still measures 11.3 x 19.2 mm. IMPRESSION: New compression fracture at L1 with some mild bony retropulsion but no severe central canal stenosis. The compression fracture is age-indeterminate but is certainly compatible with an acute fracture. This exam was performed using automated exposure control, adjustment of mA or kV according to patient size, and/or use of iterative reconstruction technique Electronically signed by Sancho Lincoln 11/14/2019 4:29 PM 11/14/19 1629 Interpreting Physician: Sancho Lincoln MD Dictated Date/Time: 11/14/19 1626 cc: Enzo Garcia MD; Josefa Crockett) - CONSULTS/PCP/HOSPITALIST Notification #1 *Consult/PCP/Hospitalist*: Sade paged at 1636 for orthopedic consultation Time Discussed: 16:41 Reason/Comments: Dr. Garcia consulted with Dr. Stuart about patient #2 Consult: CEM Barakat for Hospitalist Time Discussed: 17:20 Reason/Comments: Dr. Garcia consulted with Roshni about patient. Consult Disposition: Will see in ED, Admit Departure - Departure Date of Disposition Decision: 11/14/19 Time of Disposition Decision: 17:29 DIAGNOSIS: Febrile illness, acute Compression fracture of L1 lumbar vertebra Qualifiers: Encounter type: subsequent encounter Fracture healing: with routine healing Qualified Code(s): S32.010D - Wedge compression fracture of first lumbar vertebra, subsequent encounter for fracture with routine healing Fall as cause of accidental injury at home as place of occurrence Qualifiers: Encounter type: initial encounter Qualified Code(s): W19.XXXA - Unspecified fall, initial encounter; Y92.009 - Unspecified place in unspecified non-institutional (private) residence as the place of occurrence of the external cause Disposition: ADMITTED INPATIENT 09 Certified Medical Emergency: Emergent Condition: Stable Referrals and Follow-Ups: Josefa Crockett PA [Primary Care Provider] - - Critical Care Note This patient required my direct & personal management of CC.: No Attestation - Physician/ FARZANEH Attestation Patient care was provided by Advanced Practice Provider:: No The physician spent face to face time with patient:: Yes Advanced Practice Provider documentation review:: Supervising physician onsite and consulted in the evaluation and care of this patient. The physician did have a face to face encounter with the patient. This chart was documented by the indicated scribe, (Natali Denny, Josefina) and accurately reflects the services I performed and decisions made by me, Enzo Garcia MD, as attested by the provider's signature.
--- NOTE | 2019-11-14 19:19 | HISTORY AND PHYSICAL ---
PRIMARY CARE PHYSICIAN: Josefa Crockett. CHIEF COMPLAINT: Discharged earlier from the ER today after a fall, sustaining a new compression fracture of L1. When she arrived home, she was noted to have a temperature, according to the family, of 103 degrees. When she arrived to the emergency room, it was 101.2 degrees. HISTORY OF PRESENTING ILLNESS: This is a 79-year-old female who presents to [facility] via EMS after she was here earlier this morning after sustaining a fall, and was found to have an L1 compression fracture that was new. I spoke with Orthopedics at that time who felt she could safely be discharged home to follow up with them on an outpatient basis. When she arrived back home, family noted that she was feeling warm, so they checked her temperature and they reported that it was 103 degrees, so they brought her back to the emergency room. When she arrived, it was 101.2 degrees. She denies any shortness of breath, any cough. No recent travels. No family that has traveled recently. Her white blood cell count was 7.73. Her sodium was 131. Urinalysis was negative. Her chest x-ray showed an apparent COPD, but no evidence of pneumonia. Lumbar and thoracic CT of the spine showed a new compression fracture at L1 with some mild bony retropulsion, but no severe central canal stenosis. She was also mildly elevated heart rate of 95, so she is going to be admitted for observation. ER physician also went ahead and tested her for COVID-19, so she will be admitted for further evaluation and treatment. PAST MEDICAL HISTORY: 1. Blood clots. 2. Hyperlipidemia. 3. GERD. 4. Hypothyroidism. 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 PAST SURGICAL HISTORY: 1. Right eye surgery. 2. section. FAMILY HISTORY: Reviewed and noncontributory. SOCIAL HISTORY: She currently lives at home. Denies any tobacco, alcohol, or illicit drug use. ALLERGIES: Dextrose 5% in water, linezolid, codeine, and prednisone. HOME MEDICATIONS: 1. Tylenol pain reliever 2 tablets p.o. q.6 hours p.r.n. 2. Baclofen 10 mg p.o. q.8 hours p.r.n. 3. Zyrtec 10 mg p.o. daily. 4. Clonazepam 0.5 mg p.o. at bedtime. 5. Cyclosporine 2 drops to both eyes b.i.d. 6. Folic acid 1 mg tablet t.i.d. 7. Gabapentin 100 mg p.o. at bedtime. 8. Synthroid 50 mcg p.o. daily. 9. Meloxicam 15 mg p.o. daily. 10. Methotrexate as directed. 11. Myrbetriq 25 mg p.o. daily. 12. Prednisolone 1% eye drop to both eyes. 13. Systane 1 drop OP at bedtime. 14. Senna 1 tablet p.o. at bedtime. 15. Timoptic 1 drop ophthalmically b.i.d. LABORATORY DATA: White blood cell count of 7.73, hemoglobin 11.4, hematocrit 35.1, platelets 239,000. PT and INR of 13.9 and 1.06. ABG with a pH of 7.49, pCO2 of 33, pO2 78, bicarb 26.5, and this was on room air. Sodium 131, potassium 4.4, chloride 96, CO2 23, BUN of 10, creatinine 0.4, glucose 103, magnesium of 2.4. ProBNP of 531. Lipase of 50. Plasma lactate of 0.6. Urinalysis was negative. Chest x-ray showed apparent COPD changes. No evidence of pneumonia. Thoracic and lumbar spine CT showed a new compression fracture at L1 with some mild bony retropulsion, but no severe central canal stenosis. The compression fracture is age indeterminate, but is certainly compatible with an acute fracture. REVIEW OF SYSTEMS: She was positive for fever, some mild chills. Denied any blurred vision to her left eye. She is blind in her right eye. Denied any dizziness, chest pain, coughing, shortness of breath. She denied any abdominal pain. She did have some back pain from her fall this morning with the L1 compression fracture. Denied any constipation, diarrhea, burning or hurting with urination. PHYSICAL EXAMINATION: VITAL SIGNS: On arrival, she had a temperature of 101.2 degrees, pulse 95, respirations 20, blood pressure 164/69, saturating 95% on room air. GENERAL: This is a 79-year-old female lying in the bed and answers questions appropriately. HEAD: Normocephalic, atraumatic. ENT: Normal ENT inspection. Oropharynx and nares are clear. EYES: Left pupil is equal, round, and reactive to light and accommodation. She has blindness to her right eye. Extraocular movement was intact. NECK: Normal inspection. Normal range of motion. LUNGS: Clear to auscultation bilaterally with equal lung expansion and chest wall movement. HEART: Regular rate and rhythm. No murmurs, rubs, or gallops. MUSCULOSKELETAL: She has 5/5 strength x4 extremities. NEUROLOGICAL: The cranial nerves 2 through 12 appear grossly intact. ASSESSMENT: 1. Acute L1 compression fracture, status post fall earlier this morning. 2. Hyponatremia. 3. Sepsis of unclear source. 4. Hyperlipidemia. 5. Hypothyroidism. PLAN: 1. She will be admitted to the medical unit and placed on isolation for the Coronavirus disease 2019 with droplet and contact. 2. We will do an MRI of the lumbar spine without contrast in the a.m. 3. We will consult Orthopedics. 4. Continue her home medications. 5. Place on a healthy heart diet. 6. We will give her morphine intravenously p.r.n. 7. We will give her some gentle hydration of normal saline at 50 mL an hour. 8. Further orders after seen by attending and by method consultant. Dictated by CEM You for Barber Bledsoe MD cc: CEM You MD I agree with most components of history, physical, assessment and plan. A separate addendum has been dictated. MTDD
--- NOTE | 2019-11-14 19:41 | SEPSIS: TISSUE PERFUSION ASSMT ---
Sepsis: Tissue Perfusion Assmt - Physical Exam Assessment Date: 11/14/19 Time Assessment Initialized: 19:30 Vital Signs: Last Vital Signs Temp 101.2 F H 11/14/19 15:37 Pulse 95 H 11/14/19 15:37 Resp 20 11/14/19 15:37 BP 164/69 11/14/19 15:37 Pulse Ox 95 11/14/19 15:37 Height 4 ft 11 in Weight 39.916 kg Lung Sounds: lungs clear Heart Sounds: Regular Capillary Refill Time: Less Than 2 Seconds Peripheral Pulse Evaluation: radial (R): 2+, radial (L): 2+, dorsalis-pedis (R): 2+, dorsalis-pedis (L): 2+, posterior tibialis (R): 2+, posterior tibialis (L): 2+ Skin Exam: pink - Alternative Fluid Bolus Bolus Option: Alternative Fluid Resuscitation Bolus for morbidly obese patients with a BMI >30, Refer to [facility] [place] Body Weight Chart for Reference. Is patient's BMI >30?: No Fluid Bolus dosed using the [facility] [place] Body Weight Chart: No - Impression Impression: Tissue Perfusion Adequate (Patient has BMI<18. I will give 1 L bolus and then continous IV fluids.)
[2019-11-14] MEDS ORDERED: LIDODERM TOP ONE (19:47)
--- NOTE | 2019-11-14 20:07 | HISTORY AND PHYSICAL ---
INTERVAL HISTORY: No acute events overnight. This is an addendum to history and physical dictated by nurse practitioner. I agree with most components of history physical, assessment and plan. In brief, Ms. 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 She was not using a walker, which she was supposed to. In the emergency room, CT scan of her head, cervical spine was unremarkable. The patient was discharged home on muscle relaxants. However, after the patient reached home, she developed fever with temperature reported as high as 103 degrees, so she was brought to the emergency room. In the emergency room, she was found to have temperature of 101 degrees Fahrenheit with pulse of 95, so hospitalist team was requested to admit the patient for suspected sepsis. ER physician had also initiated testing for COVID-19, considering her fever and symptoms. SUBJECTIVE: At the time of my evaluation, patient denies chest pain, shortness of breath, palpitations. She denies any vomiting or constipation. She complains of runny nose since 7 days, sore throat since 7 days, difficulty with swallowing since several months, dry cough since 7 to 10 days. She also states that her has been sneezing a lot. She did not have fever before today. Her children visit her and to her knowledge, they did not have any travel outside [place]. She denies known exposure to coronavirus infected patient. VITALS: Currently, temperature 101.2 degrees, pulse 95, respiratory rate 20, blood pressure 164/69, saturating 95% on room air. PHYSICAL EXAMINATION: Ms Pizarro is not in any acute distress. HEENT: Oral cavity is moist. No pharyngeal congestion. She has a right-sided eye blindness and corneal xerosis. Left pupil reacting to light. No pallor, cyanosis, clubbing, or icterus. Neck: She has a localized area of about 5 x 2 cm on the anterior aspect of neck which appears red, inflamed and slightly warm to touch. Looks like a cyst. She does not have any overlying tenderness. Chest: Air entry bilaterally equal. No wheeze. Heart: Or crackles S1 normal no or gallop. Abdomen: Soft, nontender. Extremity: No lower extremity edema. Neurological: She is alert. She is oriented x3, though she is a poor historian. LABS: Suggestive of hemoglobin 11.4, platelet 239,000 pH of 7.49, pCO2 33. Sodium 131, chloride 96, BUN 10, creatinine 0.4. Microbiology: Influenza screen has been negative. Blood cultures are in lab. ASSESSMENT AND PLAN: 1. Presumed sepsis of unclear source. I will follow up throat swab to rule out streptococcal pharyngitis. Follow up blood culture to rule out sepsis. However, source is unclear. Considering her runny nose, dry cough, sore throat and fever, COVID-19 testing has been initiated though she does not have any known exposure. Considering her old age, prior history of cancer, I will monitor her. 2. Suspected infected cyst versus cellulitis on the anterior neck, unclear if it was a baseline deformity for her. The patient could not provide any details. She does appear to have localized erythema without tenderness and only mild warmth. I will follow up with ultrasound. I will start her on antibiotics and keep her on intravenous fluids. 3. History of hypothyroidism. Follow-up TSH, free T4 to rule out thyrotoxicosis which could contribute to fever and tachycardia. 4. Mechanical fall and new compression fracture of 1st lumbar vertebra as well as old thoracic vertebra. She would need treatment of osteoporosis outpatient. I will keep her on intravenous morphine as needed for pain and apply lidocaine patch. DISPOSITION: I will monitor the patient inside the hospital for presumed sepsis of unclear source, hyponatremia, hypochloremia. Plan of care discussed with the patient. She was allowed to ask questions. All of her questions have been answered. cc: Barber Bledsoe MD
[2019-11-14] MEDS: ROCEPHIN 1 GM in NS 50 ML IV SCH (20:54)
[2019-11-14] MEDS ORDERED: TIMOPTIC 0.5% OPH SOLUTION BOTH EYES SCH (21:08)
[2019-11-14] MEDS ORDERED: MOTRIN PO PRN (21:08)
[2019-11-14] MEDS ORDERED: NS 1,000 ML IV SCH (21:08)
[2019-11-14] MEDS ORDERED: ZOFRAN IV PRN (21:08)
--- NOTE | 2019-11-14 21:32 | EKG Report ---
Test Performed on : 11/14/2019 4:52:25 PM Test Reason : SOB Blood Pressure : / mmHG Vent. Rate : 092 BPM Atrial Rate : 092 BPM P-R Int : 158 ms QRS Dur : 114 ms QT Int : 364 ms P-R-T Axes : 060 072 029 degrees QTc Int : 450 ms Normal sinus rhythm. Right bundle branch block Abnormal ECG When compared with ECG of 18-MAR-2019 11:31, T wave inversion now evident in Anterior leads Unconfirmed Result
[2019-11-14 22:29] LABS: URINE SOURCE CATH
[2019-11-14 22:45] LABS: BILIRUBIN URINE NEGATIVE (NEGATIVE); BLOOD URINE LARGE (NEGATIVE); CLARITY CLEAR (CLEAR); COLOR YELLOW; GLUCOSE URINE NEGATIVE (NEGATIVE); KETONE URINE TRACE mg/dL (NEGATIVE); LEUKOCYTES URINE NEGATIVE (NEGATIVE); NITRITE URINE NEGATIVE (NEGATIVE); PROTEIN URINE NEGATIVE (NEGATIVE); SP GRAVITY URINE 1.015; UROBILINOGEN URINE 0.2 EU/dL (0.2-1.0)
[2019-11-14 22:50] LABS: URINE BACTERIA NEGATIVE /HFP; URINE CAST NONE SEEN /LPF; URINE CRYSTAL NONE SEEN /HPF; URINE EPITHELIAL CELLS <10 /HPF (<10); URINE RBC <10 /HPF (<10); URINE WBC <10 /HPF (<10); URINE YEAST NONE SEEN /HPF
[2019-11-14] MEDS: KLONOPIN PO SCH (23:52)
[2019-11-14] MEDS: NEURONTIN PO SCH (23:53)
[2019-11-15] MEDS: SENOKOT PO SCH ×2 (00:08→22:05)
[2019-11-15] MEDS: RESTASIS 0.05% OPH DROPS BOTH EYES SCH ×3 (00:09→22:05)
[2019-11-15] MEDS ORDERED: SYNTHROID PO SCH (07:00)
[2019-11-15 07:48] LABS: AGAP 13; BUN 7 mg/dL (8-22); CALCIUM 8.3 mg/dL (8.8-10.2); CHLORIDE 98 mmol/L (98-107); COSMO 262; CREATININE 0.3 mg/dL (0.5-0.9); ESTIMATED GFR > 60; GLUCOSE 81 mg/dL (70-104); POTASSIUM 4.4 mmol/L (3.5-5.1); SODIUM 132 mmol/L (136-145); TCO2 21 mmol/L (25-35)
[2019-11-15 07:49] LABS: BASO# 0.02 X1000 (0.0-0.2); BASO% 0.4 % (0.0-0.8); EOS# 0.33 X1000 (0.0-0.7); EOS% 6.6 % (0.0-10.0); HEMATOCRIT 32.7 % (37.0-47.0); HEMOGLOBIN 10.6 g/dL (12.0-16.0); IMM GRAN# 0.03 X1000 (0.0-0.04); IMM GRAN% 0.6 % (0.0-0.5); LYMPH# 0.31 X1000 (1.2-3.4); LYMPH% 6.2 % (20.5-51.1); MCHC 32.4 g/dL (33-37); MCV 83.4 FL (81-99); MONO% 12.1 % (1.7-9.3); MPV 7.8 FL (7.4-10.4); NEUT# 3.68 X1000 (1.4-6.5); NEUT% 74.1 % (42.2-75.2); PLT 226 X1000 (130-400); RBC 3.92 XMIL (4.2-5.4); RDW 15.9 % (11.5-14.5); WBC 4.97 X1000 (4.8-10.8)
[2019-11-15 07:57] LABS: FREE T4 1.43 ng/dL (0.93-1.70); TSH 0.02 uIUmL (0.27-4.20)
[2019-11-15] MEDS ORDERED: MOBIC PO SCH (09:00)
[2019-11-15] MEDS: PRED FORTE 1% OPH SUSPENSION BOTH EYES SCH (09:00)
--- NOTE | 2019-11-15 09:03 | ORTHOPAEDICS CONSULTATION ---
DATE: 11/14/2019 REASON FOR CONSULTATION: Lumbar spine fracture. CONSULTATION FROM: Dilma Meade . All information from past medical history, surgical history and history of present illness was obtained from the Hospitalist's initial History and Physical. I am waiting to see the patient in person until her COVID-19 test results, which should be later this afternoon. Her orthopedic injury should not require any immediate intervention and thus waiting for test results. I think it is worth it in order to preserve resources and prevent any unnecessary exposure. PAST MEDICAL HISTORY: 1. DVT. 2. Hyperlipidemia. 3. GERD. 4. Hypothyroidism. 5. Right eye blindness. PAST SURGICAL HISTORY: 1. Right eye surgery. 2. section. MEDICATIONS: 1. Tylenol. 2. Baclofen. 3. Zyrtec. 4. Clonazepam. 5. Cyclosporin. 6. Folic acid. 7. Gabapentin. 8. Synthroid. 9. Meloxicam. 10. Methotrexate. 11. Myrbetriq. 12. Prednisolone eyedrops. 13. Systane eye drops. 14. Senna tablet. ALLERGIES: Patient reports allergy to linezolid, codeine, and prednisone. SOCIAL HISTORY: The patient currently lives at home. She denies any tobacco, alcohol, or drug use. FAMILY HISTORY: Noncontributory. REVIEW OF SYSTEMS: Positive for right eye blindness, some shortness of breath and a sore throat as well as fever. All other review of systems negative other than what is listed in history of present illness. CHIEF COMPLAINT: Low back pain. HISTORY OF PRESENT ILLNESS: Ms. Pizarro is a 79-year-old lady who sustained a same-level fall while ambulating without her walker at her house in the morning of 11/14/2019. She was initially seen in the ER where a CT scan of her head and cervical spine was completed and was negative. She was thus sent home. However, upon arriving home, she developed a fever up to 103 degrees and was thus brought back to the emergency room. A CT scan of the thoracolumbar spine was then obtained when she came back to the ER demonstrating a L1 burst fracture and Orthopedic Surgery was thus consulted. She was admitted to the hospital under isolation precautions and COVID-19 testing was performed. We are awaiting results of that test. PHYSICAL EXAMINATION: Vital Signs: Temperature 97.5 degrees Fahrenheit, heart rate 70, respiratory rate 16, blood pressure 125/59. Further physical exam will be completed following results of her COVID-19 test. IMAGING: CT scan of the thoracic and lumbar spine was obtained and reviewed, demonstrating an acute L1 burst fracture extending through the anterior and middle columns. There is mild retropulsion into the canal; however, the canal diameter is still maintained at 19 mm. She has good alignment on sagittal and coronal views. She has findings of what looks to be an old T12 compression fracture, which are stable compared to prior imaging. She has about 50% height loss at her L1 vertebral body. ASSESSMENT: A 79-year-old female with L1 burst fracture with about 50% height loss. PLAN: We will make further orthopedic recommendations once physical exam is completed after she has her COVID-19 test results. Until that time, we will plan on getting her fitted with a TLSO brace. MRI was ordered and will be completed after COVID-19 testing is done to ensure she does not have any posterior ligamentous damage. Given her fracture pattern, this will be something that is likely treated nonoperatively. However, definitive recommendations will be made after the MRI is obtained. Until then, she is okay to remain lying flat on her back. She can sit up once the TLSO brace is appropriately fitted. We will hold off on mobilization until MRI is performed. She is okay for a diet from an Orthopedic standpoint. Further recommendations to follow later on this afternoon. Thank you for the consultation.
[2019-11-15] MEDS ORDERED: VANCOMYCIN IV PER PHARMACY MISC SCH (10:15)
[2019-11-15] MEDS: FOLIC ACID PO SCH ×3 (10:45→17:50)
[2019-11-15] MEDS: TYLENOL PO PRN (10:46)
[2019-11-15] MEDS: MYRBETRIQ E.R. PO SCH (10:46)
[2019-11-15] MEDS: ZYRTEC PO SCH (10:46)
[2019-11-15] MEDS: METHOTREXATE PO SCH ×2 (10:47→22:05)
[2019-11-15] MEDS: TIMOPTIC 0.5% OPH SOLUTION BOTH EYES SCH ×2 (10:48→22:05)
[2019-11-15] MEDS: LIDODERM TOP SCH (10:49)
[2019-11-15] MEDS ORDERED: VANCOMYCIN 1 GM/NS 1 GM/250 ML IVPB IV ONE (11:15)
--- NOTE | 2019-11-15 16:57 | PROGRESS NOTE ---
DATE: 11/15/2019 INTERVAL HISTORY: No acute events overnight. SUBJECTIVE: Ms. Pizarro is feeling better than yesterday. She denies chest pain, shortness of breath. She has occasional cough. She denies any nausea, vomiting, or abdominal pain. VITALS: Temperature 98.5 degrees, pulse 76, respiratory rate 16, blood pressure 145/85, saturating 100% on room air. PHYSICAL EXAMINATION: Ms. Pizarro does not appear in any acute distress. Oral cavity is moist.Lungs: Air entry bilaterally equal. No wheeze, rhonchi, crackles. Cardiovascular: S1, S2 normal. No murmur or gallop. Abdomen: Soft, nontender. No lower extremity edema. She appears cachectic. There is an area of induration. It is a strip like area right on the thyroid cartilage level. There is no tenderness. I could not see any erythema today. LABS: WBC 4.9, hemoglobin 10.6, platelets 226,000, BUN 7, creatinine 0.3. TSH is 0.02. Free T4 is 1.4. Blood culture: 1 of the 2 blood cultures is growing gram-positive cocci. Group A rapid streptococcal antigen and influenza screen were negative. ASSESSMENT AND PLAN: 1. Presumed sepsis of unclear source. One of the 2 blood cultures growing gram- positive cocci, so I will start the patient on intravenous vancomycin. She has been on intravenous ceftriaxone, and I will consider changing antibiotics based on final culture data 2. Suspected COVID-19 infection with fever, runny nose, dry cough. I will continue to keep her on airborne and droplet precautions. We will continue to keep her on isolation and droplet and airborne precautions. Considering her old age, prior history of cancer and now possibly metastasis of her tongue cancer, I will monitor her inside the hospital for now. 3. Suspected cellulitis on the anterior neck. I discussed with the radiologist about the CT scan of the cervical spine region, which also imaged her neck region and according to radiologist, there was no evidence of any definite abscess or cyst, so ultrasound of the thyroid has been canceled. And on my today's exam, I don't see any inflammation on the skin of anterior neck. 4. History of hypothyroidism. She does have extremely low level of TSH and I will decrease her levothyroxine dosing as thyrotoxicosis can potentially cause fever though she does not have any other symptoms of thyrotoxicosis. 5. Mechanical fall and new compression fracture of 1st lumbar vertebra as well as old thoracic vertebral fracture. Orthopedic team is recommending TLSO brace, bed-bound status and future MRI before allowing mobilization. I will continue lidocaine patch for pain. 6. Others. Patient had history of tongue cancer requiring multiple radiation therapy in the past. I will continue her home clonazepam, gabapentin for chronic pain and anxiety as well as insomnia. I will keep her on lidocaine patch, ibuprofen and meloxicam. She is on methotrexate, which is her home medication as well. Plan of care discussed with the patient. I will reach out to the family and answer all of their questions. Disposition: Pending blood culture results. If the culture data are negative and no other orthopedic interventions are planned, then I would potentially consider discharging her in next 24 hours. ADDENDUM: I discussed the plan of care with the patient's granddaughter who is a nurse at [facility]. cc: MD ERICK Brown
[2019-11-15] MEDS: NEURONTIN PO SCH (22:04)
[2019-11-15] MEDS: ROCEPHIN 1 GM in NS 50 ML IV SCH (22:04)
[2019-11-15] MEDS: KLONOPIN PO SCH (22:04)
[2019-11-16] MEDS: SYNTHROID PO SCH (06:01)
[2019-11-16] MEDS: MYRBETRIQ E.R. PO SCH (09:06)
[2019-11-16] MEDS: LIDODERM TOP SCH (09:08)
[2019-11-16] MEDS: ZYRTEC PO SCH (09:08)
[2019-11-16] MEDS: METHOTREXATE PO SCH ×2 (09:08→20:58)
[2019-11-16] MEDS: FOLIC ACID PO SCH ×3 (09:08→17:43)
[2019-11-16] MEDS: RESTASIS 0.05% OPH DROPS BOTH EYES SCH ×2 (09:09→21:36)
[2019-11-16] MEDS: PRED FORTE 1% OPH SUSPENSION BOTH EYES SCH (09:10)
[2019-11-16] MEDS: TIMOPTIC 0.5% OPH SOLUTION BOTH EYES SCH ×2 (09:10→20:59)
--- NOTE | 2019-11-16 14:07 | PROGRESS NOTE ---
DATE: 11/16/2019 SUBJECTIVE: 1. Ms. Pizarro was admitted on 11/14/2019. She is followed by Josefa Crockett, Physician Clicking Machine Operator. She came in with a history of questionable sepsis, unclear source. They did blood cultures. There was 1 out of 2 that grew out coagulase- negative Staphylococcus, which is suspected contaminant. They did an influenza screen A and B, both negative nasal swabs. Anyway, she was admitted for presumed sepsis, source unclear, swab and throat cultures were negative for Strep. She has had COVID-19 testing, waiting on results. Her breathing is comfortable at the present time. She remains afebrile. 2. Suspected infected cyst versus cellulitis of the anterior neck, and I think the plan was to get an ultrasound on that. 3. Hypothyroidism. We are going to follow up her T4 and TSH. 4. Mechanical fall with new compression fracture at L1 vertebrae as well as old thoracic vertebrae fractures. So will pursue Physical Therapy. REVIEW OF HER ORDERS: She is on Klonopin 0.5 mg at bedtime, Neurontin 100 mg at bedtime, Senokot 1 at bedtime, Zyrtec 10 mg daily, folic acid 1 mg t.i.d., Synthroid 37.5 mg p.o. daily, methotrexate 5 mg on and Fridays b.i.d., Mirabegron 25 mg daily, and ceftriaxone 1 g IV q.24 hours, vancomycin 700 mg IV q.48 hours. cc: Jose Angel Hunt MD
--- NOTE | 2019-11-16 17:33 | ORTHOPAEDICS PROGRESS NOTE ---
DATE: 11/16/2019 SUBJECTIVE: No acute events overnight. The patient reports some pain in her lumbar spine. She has not gotten up and mobilized since arrival. She is tolerating a diet. She has no other complaints. OBJECTIVE: vital signs: Afebrile. Vital signs stable. Hematocrit is 33, white count is 5. HEENT: Normocephalic and atraumatic. Respiratory: Nonlabored breathing. Cardiovascular: Regular rate and rhythm. back: Examination of CT and L spine reveal skin to be intact. The patient has tenderness to palpation over her upper lumbar spine around the L1 vertebrae fracture site. She has a negative straight leg raise test bilaterally. Motor strength is 5/5 of L3-S1 bilaterally. Sensation 2/2 of L3-S1 bilaterally. Negative Homans sign bilaterally. Extremities: Examination of bilateral lower extremities shows skin intact. No pain with log roll of the hips. Pelvis is stable. She has good range of motion of her hips, knees, ankles, and feet. Negative straight leg raise test bilaterally. Motor is intact to EHL, tibialis, anterior, and gastrocsoleus complex. Sensation intact to light touch L3 to S1. Dorsalis pedis pulse palpable and equal bilaterally. ASSESSMENT: A 79-year-old female with an L1 burst fracture. PLAN: 1. A long discussion was had with the patient regarding diagnosis and treatment options. I talked to her yesterday on the phone regarding this as well. Given her fracture pattern and CT scan findings, I think we should be able to treat this nonoperatively. I do want to get an MRI of the lumbar spine to evaluate the posterior spinal column elements to ensure she does not have any type of ligamentous injury. As long as she does not have any posterior ligamentous injury, she should be fine to be treated in a TLSO brace. She has a TLSO brace in the room. However, it has not yet been fitted. I want Physical Therapy to come up and fit the brace appropriately. Once we get her COVID-19 test results, we will plan on getting the MRI assuming the test is negative. Further recommendations pending evaluation of the MRI. 2. Appreciate hospitalist recommendations. 3. The patient is currently on isolation precautions and is awaiting evaluation for her COVID-19 test. She was found to have infected cyst for cellulitis of her anterior neck which is being worked up. 4. We will start Lovenox for DVT prophylaxis.
[2019-11-16] MEDS: LOVENOX SUBQ SCH (17:43)
[2019-11-16] MEDS: NEURONTIN PO SCH (20:58)
[2019-11-16] MEDS: KLONOPIN PO SCH (20:58)
[2019-11-16] MEDS: SENOKOT PO SCH (20:58)
[2019-11-16] MEDS: ROCEPHIN 1 GM in NS 50 ML IV SCH (20:59)
[2019-11-16] MEDS: TYLENOL PO PRN (22:54)
[2019-11-17] MEDS: SYNTHROID PO SCH (06:47)
[2019-11-17] MEDS: LOVENOX SUBQ SCH (06:47)
[2019-11-17] MEDS: PRED FORTE 1% OPH SUSPENSION BOTH EYES SCH (09:00)
[2019-11-17] MEDS: LIDODERM TOP SCH (09:52)
[2019-11-17] MEDS: ZYRTEC PO SCH (09:52)
[2019-11-17] MEDS: FOLIC ACID PO SCH ×3 (09:52→17:45)
[2019-11-17] MEDS: MYRBETRIQ E.R. PO SCH (09:52)
[2019-11-17] MEDS: TIMOPTIC 0.5% OPH SOLUTION BOTH EYES SCH ×2 (09:53→20:02)
[2019-11-17] MEDS: RESTASIS 0.05% OPH DROPS BOTH EYES SCH ×2 (09:53→20:06)
[2019-11-17] MEDS ORDERED: VANCOMYCIN 700 MG in NS 250 ML IV SCH (11:15)
[2019-11-17] MEDS: VANCOMYCIN 1 GM/NS 1 GM/250 ML IVPB IV SCH (14:40)
[2019-11-17] MEDS: ROCEPHIN 1 GM in NS 50 ML IV SCH (20:01)
[2019-11-17] MEDS: KLONOPIN PO SCH (20:01)
[2019-11-17] MEDS: NEURONTIN PO SCH (20:02)
[2019-11-17] MEDS: SENOKOT PO SCH (20:04)
[2019-11-18] MEDS: SYNTHROID PO SCH ×2 (05:18→06:27)
[2019-11-18] MEDS: LOVENOX SUBQ SCH (05:18)
[2019-11-18] MEDS: MORPHINE IV PRN ×2 (05:39→16:17)
--- NOTE | 2019-11-18 08:06 | PROGRESS NOTE ---
DATE: 11/18/2019 SUBJECTIVE: Ms. Pizarro is awake. She says she feels good. No complaints. Remains afebrile. OBJECTIVE: Temperature 97.6 degrees, pulse 77, respirations 17, blood pressure 150/54. Pupils are equal and round. Lungs are clear in all lung burris. Cardiovascular Examination: Regular rhythm and rate without murmur or S3. Abdomen is soft. Skin is warm and dry. ASSESSMENT AND PLAN: 1. She came in with a history of questionable sepsis of unclear source. They did blood cultures, one out of two coagulase-negative Staphylococcus which I believe is contaminant. Influenza A and B were negative, nasal swabs, Covid-19, still waiting results. Does not appear to have active infection. At this point, she is not having upper respiratory symptoms. I will wait on the Covid testing. 2. Suspected infected cyst or cellulitis in the anterior neck and this is resolving well. 3. Hypothyroidism, appears to be euthyroid. 4. Mechanical fall with compression fracture at L1 as well as an old thoracic vertebral fracture. Continue her physical therapy. ORDERS: She is on Klonopin 0.5 mg at bedtime, Neurontin 100 mg at bedtime, Senokot 1 at bedtime, Zyrtec 10 mg a day, Lovenox 40 mg subcutaneous daily, folic acid 1 mg t.i.d., Motrin 200 mg p.o. q.8 hours, Synthroid 37.5 mcg p.o. daily, methotrexate 5 mg and Fridays (takes twice a day on and Fridays), mirabegron ER 25 mg a day. She is on ceftriaxone 1 g IV q.24 hours and getting vancomycin 1 g q.24 hours. cc: Jose Angel Hunt MD
[2019-11-18] MEDS: TIMOPTIC 0.5% OPH SOLUTION BOTH EYES SCH ×2 (09:30→20:23)
[2019-11-18] MEDS: FOLIC ACID PO SCH ×3 (09:31→16:10)
[2019-11-18] MEDS: LIDODERM TOP SCH (09:31)
[2019-11-18] MEDS: RESTASIS 0.05% OPH DROPS BOTH EYES SCH ×2 (09:31→20:24)
[2019-11-18] MEDS: ZYRTEC PO SCH (09:31)
[2019-11-18] MEDS: MYRBETRIQ E.R. PO SCH (09:31)
[2019-11-18] MEDS: PRED FORTE 1% OPH SUSPENSION BOTH EYES SCH (09:33)
[2019-11-18] MEDS: VANCOMYCIN 1 GM/NS 1 GM/250 ML IVPB IV SCH (13:53)
--- NOTE | 2019-11-18 14:53 | ORTHOPAEDICS PROGRESS NOTE ---
DATE: 11/18/2019 SUBJECTIVE: No acute events overnight. Patient's COVID-19 test came back negative and so she is now out of isolation. She is tolerating diet. She is wearing a TLSO brace which she states gives her good support at her lumbar fracture site. OBJECTIVE: Afebrile. Vital signs stable.Extremities: Examination of the lumbar spine shows TLSO brace to be intact. Motors grossly intact L3-S1. Sensation intact to light touch L3-S1. Dorsalis pedis pulse palpable and equal bilaterally. Thighs and calf soft and compressible. She is able to ambulate in her brace. ASSESSMENT: A 79-year-old female with L1 burst fracture. PLAN: 1. The patient is scheduled to undergo lumbar spine MRI 1st thing tomorrow morning. Definitive recommendations to follow the MRI. Assuming her posterior ligaments are intact, plan will be to treat this conservatively in TLSO brace for about 6 to 8 weeks. If she does have any type of ligamentous injury then this may be something that would require surgical intervention at which point should be transferred to orthopedic spine surgeon likely in [place]. However, I think this should be a non operative type injury. 2. Appreciate hospitalist recommendations. 3. Lovenox DVT prophylaxis. 4. TLSO brace at all times. 5. Disposition per primary team. Will await MRI for definitive recommendations. Assuming MRI is negative for ligamentous injury, patient could likely go home versus inpatient rehab and follow up with me in clinic in 2 weeks.
[2019-11-18] MEDS: NEURONTIN PO SCH (20:23)
[2019-11-18] MEDS: ROCEPHIN 1 GM in NS 50 ML IV SCH (20:23)
[2019-11-18] MEDS: SENOKOT PO SCH (20:23)
[2019-11-18] MEDS: KLONOPIN PO SCH (20:23)
[2019-11-18] MEDS: ORAJEL MAXIMUM ST 20% GEL TOP PRN (20:25)
--- NOTE | 2019-11-19 04:22 | PROGRESS NOTE ---
DATE: 11/17/2019 SUBJECTIVE: Ms. Pizarro is a 79-year-old white female who presented to [facility] after she sustained a fall, a new compression fracture at L1. When she arrived home, she had a temperature according to family, 103 degrees and so was brought back here. PAST MEDICAL HISTORY: 1. History of blood clots. 2. Hyperlipidemia. 3. Gastroesophageal reflux disease. 4. Hypothyroidism. 5. Blindness in the right eye. PAST SURGICAL HISTORY: 1. Right eye surgery. 2. section ASSESSMENT AND PLAN: 1. L1 compression fracture status post fall. 2. Hypernatremia. 3. Sepsis suspected could be urinary tract. 4. Hyperlipidemia. 5. Hypothyroidism. She feels much better today. PHYSICAL EXAMINATION: Vital signs: She is afebrile, temperature 97.9 degrees, pulse 70, respirations 20, blood pressure 132/49. HEENT: Pupils are equal and round. Lungs: Clear in all lung burris. Cardiovascular: Regular rhythm and rate without murmur or S3. Abdomen: Soft. Skin: Warm and dry. ASSESSMENT AND PLAN: 1. She is followed by Josefa Crockett, physician photo studio assistant. She had a recent fall, L1 compression fracture. 2. There are 1/2 cultures grew out Staphylococcus coagulase-negative which I think is contaminant. 3. Suspected infected cyst versus cellulitis of the anterior neck and appears to be doing better. 4. Hypothyroidism and her T4 and TSH we will check. 5. Mechanical fall. We did check her for COVID virus and that is still pending. 6. She is on Klonopin 0.5 mg at bedtime, Neurontin 100 mg at bedtime, Senokot 1 at bedtime, Zyrtec 10 mg daily, cyclosporine eyedrops 0.05% 2 drops each eye twice a day, folic acid 1 mg t.i.d., Synthroid 37.5 mcg p.o. daily, methotrexate 5 mg p.o. and Fridays and she takes it twice a day, Mirabegron 25 mg daily, ceftriaxone 1 g IV q.24 hours, timolol eyedrops 0.5% to both eyes twice a day, vancomycin 700 mg IV every 48 hours. LAB: Today is unremarkable. Creatinine is 0.3. cc: Jose Angel Hunt MD
[2019-11-19] MEDS: LOVENOX SUBQ SCH (09:07)
[2019-11-19] MEDS: FOLIC ACID PO SCH ×3 (09:08→18:27)
[2019-11-19] MEDS: MYRBETRIQ E.R. PO SCH (09:08)
[2019-11-19] MEDS: RESTASIS 0.05% OPH DROPS BOTH EYES SCH ×2 (09:09→20:48)
[2019-11-19] MEDS: TIMOPTIC 0.5% OPH SOLUTION BOTH EYES SCH ×2 (09:09→20:47)
[2019-11-19] MEDS: ZYRTEC PO SCH (09:09)
[2019-11-19] MEDS: PRED FORTE 1% OPH SUSPENSION BOTH EYES SCH (09:10)
[2019-11-19] MEDS: LIDODERM TOP SCH (09:11)
[2019-11-19] MEDS: ORAJEL MAXIMUM ST 20% GEL TOP PRN (09:13)
--- NOTE | 2019-11-19 09:46 | PROGRESS NOTE ---
DATE: 11/19/2019 Ms Pizarro was admitted on 11/16/2019. Her primary care doctor is Josefa Crockett. She was discharged from the emergency room earlier that day, sustaining new compression fracture. Arrived at home. Noted she had a temperature of 103 degrees and came back. In the emergency room, the temperature was 101.2 degrees so she had come back in the hospital. PAST MEDICAL HISTORY: History of blood clots, hyperlipidemia, gastroesophageal reflux disease, hypothyroidism, blindness in the right eye. Was admitted with acute L1 compression fracture, hyponatremia, infection, bacteremia, possible sepsis of unclear etiology. She feels much better and is requesting to go home. We need to make sure she can walk. We will get physical therapy to walk her and see how we do. She has remained afebrile. PHYSICAL EXAMINATION: Temperature 96.6 degrees, pulse 71, respirations 14, blood pressure 144/55. Lungs are clear in all lung burris. Cardiovascular Examination: Regular rhythm and rate without murmur or S3. Abdomen is soft. Skin is warm and dry. ASSESSMENT AND PLAN: 1. Compression fracture. Let us make sure she can walk. I think she is ready go home when she can do that. 2. One out of two blood cultures grew Staphylococcus coagulase negative, which I believe was a contaminant. She has not had any further fever. 3. She had a little cyst on the anterior neck that looked like it might have been infected and that may have been the source of her fever. That seems to have cleared. 4. Hypothyroidism. She appears euthyroid. 5. Recent mechanical fall. We did check her for Covid virus and that is still pending. She really did not have any evidence of a respiratory viral infection. 6. Klonopin, she takes at bedtime. I reviewed all of her medications. I think she wants to go home with home health. We will see how we do with physical therapy and maybe we can go home this afternoon. REVIEW OF HER ORDERS: She is getting ceftriaxone. Her microbiology otherwise has been negative. Influenza negative. Group strep A was negative. Still, I think we are waiting on Covid results. cc: Jose Angel Hunt MD
--- NOTE | 2019-11-19 11:06 | ORTHOPAEDICS PROGRESS NOTE ---
DATE: 11/19/2019 SUBJECTIVE: No acute events overnight. The patient is feeling okay in her TLSO brace. She has no other complaints. She is tolerating a diet. OBJECTIVE: Afebrile. Vital signs stable. The examination of lumbar spine shows skin to be intact. She has tenderness to palpation around her L1 fracture site. She is neurovascularly intact bilateral lower extremities. Thighs and calf are soft and compressible. ASSESSMENT: A 79-year-old female with L1 burst fracture. PLAN: 1. The patient is scheduled to get her MRI this morning. Once the MRI is back, we will leave final recommendations. Assuming her posterior ligaments are intact, she should be fine to be treated nonoperatively in a TLSO brace. Until then, I want to hold off on ambulation. 2. Appreciate hospitalist's recommendations. 3. Disposition is per primary team. Assuming her ligaments are intact, she can be weightbearing as tolerated and ambulate with physical therapy. I will plan on seeing her back in the clinic in 2 weeks with repeat x-rays. She needs to wear her TLSO brace at all times for likely 6 to 8 weeks.
--- NOTE | 2019-11-19 11:18 | Diag Imaging Result Doc PS360 ---
MRI LUMBAR SPINE W/O CONTRAST - 11/14/2019 INDICATION: L1 Burst Fracture COMPARISON: 11/14/2019 FINDINGS: There is a high-grade compression fracture of L1 with about 60% loss of height. There is internal bone marrow edema consistent with a recent fracture. No fracture extension to the posterior elements. There is some bony retropulsion at this level, narrowing the central canal to about 9 mm there is a moderate old compression deformity of T12. No internal bone marrow edema at T12. The conus is at L1-L2 and appears normal. There is a partial disc space at S1-S2. At S1-S2, there is a hypointense area in the bone marrow, this is centered around the disc space but does not involve the disc at all. This is restricted to the bone marrow. There are moderate disc bulges at L3-L4 and L4-L5. No significant central canal stenosis here. IMPRESSION: 1. High-grade recent compression fracture at L1. No burst fracture. There is however mild to moderate central canal narrowing from bony retropulsion. 2. Stable T12 compression fracture that is chronic. 3. Abnormal area of bone marrow signal in the sacrum. This may represent bony metastatic disease from an uncertain source. This does not appear aggressive however. Recommend whole-body bone scan. Electronically signed by Sancho Lincoln 11/19/2019 11:16 AM
--- NOTE | 2019-11-19 11:43 | ORTHOPAEDICS PROGRESS NOTE ---
DATE: 11/19/2019 SUBJECTIVE: The patient just had her MRI of her lumbar spine. Results are listed below. IMAGING: MRI of the lumbar spine without contrast was obtained, demonstrating high-grade compression fracture of L1, with about 60% height loss and small bony retropulsion into the canal; however, no significant canal stenosis at this level. She has an old compression deformity of T12. There is no involvement of the posterior elements. The PLL, interspinous ligament, and other posterior structures are intact at the level of the fracture site. 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 Radiologist recommends whole-body bone scan for this. This could be addressed by her primary care physician in the outpatient setting. ASSESSMENT: A 79-year-old female with an L1 burst fracture. PLAN: 1. The patient can be weightbearing as tolerated, and ambulate with Physical Therapy, wearing her TLSO brace. Her fracture pattern appears to be stable, and it should not require any surgical intervention. She does need to wear the brace, however, to prevent any further collapse at the fracture site. Will plan on treating her in the TLSO brace for about 6 to 8 weeks total. She can follow up with me in clinic in 2 weeks with repeat x-rays of the lumbar spine. 2. Appreciate hospitalist recommendations. 3. Recommend outpatient followup with her primary care physician in regards to area of abnormal bone marrow signal of the sacrum that could be sales representative girls[employer]arel of some type of metastatic disease. The lesion does not appear to be aggressive. 4. Disposition is per primary team. The patient is likely planned on being discharged home later this afternoon after she ambulates with Physical Therapy.
[2019-11-19] MEDS: MORPHINE IV PRN (13:28)
[2019-11-19] MEDS: VANCOMYCIN 1 GM/NS 1 GM/250 ML IVPB IV SCH (13:28)
--- NOTE | 2019-11-19 16:16 | DISCHARGE SUMMARY ---
ADMISSION DATE: 11/16/2019 DISCHARGE DATE: 11/20/2019 HISTORY: This is a 79-year-old who is followed by Josefa Crockett, physician diploma medical assistant. 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 She was not using her walker as she was supposed to. Emergency Room did a CT of her head and cervical spine and was unremarkable. Patient was discharged home with muscle relaxants. After the patient reached home, she developed fever and temperature reported of 103. She was brought back to the emergency room, found to have a temperature of 101 degrees, and was admitted for possible infection. This was during the time where there was high concern about COVID-19 so she was tested for presumed infection and possible sepsis. They did a streptococcal culture of pharynx and it was negative, and influenza was negative. The COVID-19 came back negative as well. She had a cyst on the anterior of her neck that looked like it might have a little infection so that was treated topically, and that resolved. She had no further fever. Blood pressure looks good. Hypothyroidism. She appears euthyroid. Continue her Synthroid. We did check T4 and TSH to make sure she did not have thyrotoxicosis. Recent mechanical fall with new compression fracture at the 1st lumbar. She did well in the hospital, and remained afebrile. She wanted to go home and so we will set her up to go home on Tuesday, 11/19 I believe. DISCHARGE MEDICATIONS: She can take Tylenol 650 mg q.6 hours p.r.n. pain. She is on Zyrtec 10 mg a day, Klonopin 0.5 mg at bedtime. She has Restasis eyedrops 0.5% 2 drops to each eye twice a day, folic acid 1 mg p.o. t.i.d., Neurontin 100 mg at bedtime, Motrin 200 mg every 8 hours p.r.n. pain, Synthroid 37.5 mg p.o. daily, lidocaine patch one topically. She also takes methotrexate I think 5 mg b.i.d. on and Fridays, and continue that. She has prednisone acetate eye drops which she uses both eyes daily, Senokot 1 at bedtime, Timoptic eyedrops 0.5% both eyes b.i.d. Note that all of her culture, she did have 1/2 blood cultures grew out coagulase-negative Staphylococcus which I think was a contaminant so I did not find any true source of infection other than a topical cyst in her neck. DISCHARGE FOLLOWUP: She will follow up with her primary care physician which is ADELE Shepard, and set up for home health. cc: Jose Angel Hunt MD
[2019-11-19] MEDS: ROCEPHIN 1 GM in NS 50 ML IV SCH (20:47)
[2019-11-19] MEDS: NEURONTIN PO SCH (20:48)
[2019-11-19] MEDS: KLONOPIN PO SCH (20:48)
[2019-11-19] MEDS: TYLENOL PO PRN (20:48)
[2019-11-19] MEDS: SENOKOT PO SCH (20:48)
[2019-11-20] MEDS: LOVENOX SUBQ SCH (05:25)
[2019-11-20] MEDS: SYNTHROID PO SCH ×2 (05:26→07:48)
[2019-11-20 07:27] VITALS: BP 137/65
[2019-11-20] MEDS: MYRBETRIQ E.R. PO SCH (08:27)
[2019-11-20] MEDS: LIDODERM TOP SCH (08:28)
[2019-11-20] MEDS: FOLIC ACID PO SCH (08:28)
[2019-11-20] MEDS: TIMOPTIC 0.5% OPH SOLUTION BOTH EYES SCH (08:28)
[2019-11-20] MEDS: ZYRTEC PO SCH (08:28)
[2019-11-20] MEDS: RESTASIS 0.05% OPH DROPS BOTH EYES SCH (08:28)
[2019-11-20] MEDS: PRED FORTE 1% OPH SUSPENSION BOTH EYES SCH (08:28)
[2019-11-20] MEDS: TYLENOL PO PRN (12:04)
--- NOTE | 2019-11-20 15:14 | PROGRESS NOTE ---
DATE: 11/20/2019 SUBJECTIVE: The patient seems to be more stable. She has been walking a little bit better with physical therapy. She has been eating. She was basically discharged yesterday by Dr. Hunt. OBJECTIVE: Vital Signs: Temperature 98.4 degrees, pulse 109, respiratory rate 14, blood pressure 137/65, and oxygen saturation 99 on room air. HEENT: Head normocephalic. No trauma. Lungs: Clear. Cardiovascular: RRR. Abdomen: Soft. LABORATORY: No lab work done today. ASSESSMENT AND PLAN: 1. A 79-year-old female with L1 burst fracture. She has been evaluated by Orthopedic Surgery Department. They have recommended to ambulate with physical therapy wearing her TLSO brace. The plan is to keep her with this kind of treatment for 6 to 8 weeks. She will follow up with Dr. Stuart in the clinic in 2 weeks to repeat x-rays. 2. Hypothyroidism. 3. Weakness. 4. 1/2 gram-positive cocci with coagulase-negative Staphylococcus which is a contaminant. 5. The patient has been basically discharged by Dr. Hunt yesterday. She already worked on her medications. She will need to follow up with orthopedic surgery in 2 weeks. She seems to be stable at this moment. cc: Joaquin Coelho MD
== END 2019-11-20 12:13 | disposition home health service (06) | DRG 603 ==
LOC: SUPCPDRO → ED 14:40 → INTOOBSV 19:28 → SUATTDRO 19:28 → 4N 19:28 → SUATTDRO 11-16 12:11 → 4N 11-17 15:29
PROVIDERS: ATTEND Internal Medicine

== ENCOUNTER 2019-12-11 06:57 | Inpatient (IN) ==
--- NOTE | 2019-12-11 07:11 | PROVIDER DOCUMENTATION ---
HPI-Fever - General Stated Complaint: fever, weakness Time Seen by Provider: 12/11/19 07:00 Source: patient, EMS Allergies/Adverse Reactions: Patient Allergies Allergy/AdvReac Type Severity Reaction Status Date / Time dextrose 5 % in water AdvReac Mild ITCHING Verified 11/14/19 17:10 [From Zyvox] linezolid [From Zyvox] AdvReac Mild ITCHING Verified 11/14/19 17:10 codeine AdvReac NAUSEA/VOMI Verified 11/14/19 17:10 TING prednisone AdvReac NAUSEA/VOMI Verified 11/14/19 17:10 TING Home Medications: Home Medication List Medication Instructions Recorded Confirmed Last Taken Type Cyclosporine [Restasis] 2 drp BOTH EYES BID 02/25/19 12/11/19 11/14/19 History Folic Acid 1 tab PO TID 02/25/19 12/11/19 11/14/19 History Methotrexate 8 tab PO DIRECTED 02/25/19 12/11/19 11/09/19 History Polyvinyl Alcohol/Povidone/Pf 1 ea OPHTHALMIC (EYE) Q4HR PRN 02/25/19 12/11/19 Unknown History [Refresh Classic Eye Drops] Prednisolone Acetate/Pf 1 droperette BOTH EYES DAILY 02/25/19 12/11/19 11/14/19 History [Prednisolone Acet 1% Eye Drop] Acetaminophen [Pain Reliever] 2 tab PO Q6H PRN 03/10/19 12/11/19 Unknown History Sennosides [Senna] 1 tab PO QHS 03/10/19 12/11/19 Unknown History Baclofen 10 mg PO Q8H PRN #20 tab 11/14/19 12/11/19 Unknown Rx Cetirizine [Zyrtec] 10 mg PO DAILY 11/14/19 12/11/19 11/14/19 History Clonazepam 0.5 mg PO QHS 11/14/19 12/11/19 11/13/19 History Gabapentin 100 mg PO QHS 11/14/19 12/11/19 11/13/19 History Levothyroxine [Synthroid] 50 microgm PO DAILY 11/14/19 12/11/19 11/14/19 History Meloxicam 15 mg PO DAILY 11/14/19 12/11/19 11/14/19 History Mirabegron [Myrbetriq] 25 mg PO DAILY 11/14/19 12/11/19 11/14/19 History Propylene Glycol/Peg 400/Pf 1 ea OPHTHALMIC (EYE) QHS 11/14/19 12/11/19 Unknown History [Systane 0.3-0.4% Eye Drop] Timolol Maleate [Timoptic] 1 drp OPH BID 11/14/19 12/11/19 11/14/19 History Acetaminophen [Tylenol] 650 mg PO Q6H PRN PRN tab 11/19/19 12/11/19 Unknown Rx Ibuprofen [Motrin] 200 mg PO Q8H PRN PRN tab 11/19/19 12/11/19 Unknown Rx Lidocaine 5% Patch [Lidoderm] 1 ea TOP DAILY 30 Days #30 patch 11/19/19 12/11/19 Unknown Rx Methotrexate 5 mg PO ThFr@BID tab 11/19/19 12/11/19 Unknown Rx - History of Present Illness-Fever Nature of Presenting Problem: Patient is a 79 year old white female with history of multiple compression fractures of spine requiring back brace and recent dental abscess, seen by dentist yesterday,who presents by EMS with lethargy, fever over 102,and dry cough since yesterday. Patient received tylenol prior to arrival. Review of medical record reveals prior + blood cultures for staph. Fever Severity/Quality: reports: greater than 102 F Onset/Duration: reports: gradual Timing: reports: improving - Glascow Coma Score Best Eye Response (Hazel): (4) open spontaneously Best Verbal Response (Faustino): (5) oriented Best Motor Response (Faustino): (6) obeys commands Review of Systems - Adult - REVIEW OF SYSTEMS - ADULT Constitutional: reports: chills, fever Eyes: reports: see HPI (right eye blindness (old)) Respiratory: reports: cough (dry) Gastrointestinal: denies: abdominal pain, nausea, vomiting Genitourinary: denies: dysuria Musculoskeletal: reports: see HPI, back pain (chronic back pain due to compression fractures requiring back brace) Integumentary: denies: rash Neurological: denies: dizziness/vertigo, headache/migraines, numbness Endocrine: reports: see HPI Hematologic/Lymphatic: reports: no symptoms reported Allergic/Immunologic: reports: no symptoms reported Past History - Adult - PAST MEDICAL HISTORY-ADULT Review of Records: reports: Old Records Reviewed, Nursing Assessment Review, Medications Reviewed, Social history reviewed & non-contributory. Major Childhood Illnesses: reports: denies history Cardiovascular: reports: blood clots, hyperlipidemia Respiratory: reports: denies history Gastrointestinal: reports: GERD Obstetrical/Gynecological: reports: denies history Genitourinary: reports: denies history Musculoskeletal: reports: denies history Neurological: reports: denies history Psychiatric: reports: denies history Endocrine/Immune: reports: denies history Other Conditions: reports: blindness (rt eye) - PRIOR SURGERIES/PROCEDURES Surgical/Procedure History: reports: , other (eye surgery) - IMMUNIZATION STATUS Childhood Immunizations: See Nurse Assessment Flu Vaccine: See Nurse Assessment - FAMILY HISTORY Family History: reviewed, not pertinent - SOCIAL HISTORY Smoking: denies Substance Use: denies Alcohol Use Frequency: occasionally Living Situation: family Physical Exam-General - CONSTITUTIONAL General Appearance: alert, cachetic, other - EYES Eyes: other (blind in right eye) - HEAD, EARS, NOSE, MOUTH & THROAT HENMT: moist mucous membranes, other (poor dentition, no fluctuance or drainage) - NECK Neck: supple - RESPIRATORY Respiratory: no respiratory distress, no accessory muscle use, decreased breath sounds - CARDIOVASCULAR Cardiovascular: regular rate, rhythm - GASTROINTESTINAL (ABDOMEN) Abdominal Exam: normal bowel sounds, non tender, soft - MUSCULOSKELETAL Back Exam: other (vague back tenderness) Extremity: non-tender, other (muscle atrophy) Peripheral Pulses: radial (R): 2+, radial (L): 2+ Progress - PLAN OF CARE/RESULTS Progress/Plan/Lab Results: Vital Signs - 8 hr 12/11/19 07:19 Temperature 100.7 F H Pulse Rate 90 Respiratory Rate 17 Blood Pressure 161/75 O2 Sat by Pulse Oximetry 98 12/11/19 07:49 Influenza Screen - Final Nasopharyngeal Laboratory Results - last 24 hr 12/11/19 12/11/19 12/11/19 07:00 07:09 07:09 WBC RBC Hgb Hct MCV MCH MCHC RDW Std Deviation Plt Count MPV Immature Gran % (Auto) Neut % (Auto) Lymph % (Auto) [place] % (Auto) Eos % (Auto) Baso % (Auto) Immature Gran # (Auto) Neut # (Auto) Lymph # (Auto) [place] # (Auto) Eos # (Auto) Baso # (Auto) Specimen Type pH pCO2 pO2 HCO3 Base Excess Oxyhemoglobin ABG O2 Sat (Calculated) ABG O2 Saturation ABG Carboxyhemoglobin ABG Methemoglobin A-a O2 Difference Total Hemoglobin Lactate FiO2 % Sodium 127 L Potassium 4.9 Chloride 86 L Carbon Dioxide 29 Anion Gap 12 BUN 9 Creatinine 0.3 L Estimated GFR/1.73 m2 > 60 BUN/Creatinine Ratio 30 Glucose 110 H POC Glucose 97 Calculated Osmolality 255 Calcium 9.8 Total Bilirubin 0.55 AST 12 ALT 8 L Alkaline Phosphatase 109 H Troponin T High Sens Tyy-K-Aveykzqttwl Pept Total Protein 6.4 Albumin 4.0 Globulin 2.4 Albumin/Globulin Ratio 1.7 Plasma Lactate 0.8 Urine Source Urine Color Urine Turbidity Urine pH Ur Specific [place] Urine Protein Ur Glucose (Stick) Ur Ketones (Stick) Urine Blood Urine Nitrite Urine Bilirubin Urobilinogen Dipstick Urine Leukocytes Urine WBC (Auto) Urine RBC (Auto) U Epithel Cells (Auto) Urine Bacteria (Auto) 12/11/19 12/11/19 12/11/19 07:09 07:09 07:09 WBC 7.39 RBC 3.90 L Hgb 10.7 L Hct 33.3 L MCV 85.4 MCH 27.4 MCHC 32.1 L RDW Std Deviation 17.1 H Plt Count 319 MPV 7.7 Immature Gran % (Auto) 0.5 Neut % (Auto) 87.1 H Lymph % (Auto) 6.8 L [place] % (Auto) 3.2 Eos % (Auto) 2.3 Baso % (Auto) 0.1 Immature Gran # (Auto) 0.04 Neut # (Auto) 6.43 Lymph # (Auto) 0.50 L [place] # (Auto) 0.24 Eos # (Auto) 0.17 Baso # (Auto) 0.01 Specimen Type pH pCO2 pO2 HCO3 Base Excess Oxyhemoglobin ABG O2 Sat (Calculated) ABG O2 Saturation ABG Carboxyhemoglobin ABG Methemoglobin A-a O2 Difference Total Hemoglobin Lactate FiO2 % Sodium Potassium Chloride Carbon Dioxide Anion Gap BUN Creatinine Estimated GFR/1.73 m2 BUN/Creatinine Ratio Glucose POC Glucose Calculated Osmolality Calcium Total Bilirubin AST ALT Alkaline Phosphatase Troponin T High Sens 9 Uis-O-Nfztxaynkua Pept 335 Total Protein Albumin Globulin Albumin/Globulin Ratio Plasma Lactate Urine Source Urine Color Urine Turbidity Urine pH Ur Specific [place] Urine Protein Ur Glucose (Stick) Ur Ketones (Stick) Urine Blood Urine Nitrite Urine Bilirubin Urobilinogen Dipstick Urine Leukocytes Urine WBC (Auto) Urine RBC (Auto) U Epithel Cells (Auto) Urine Bacteria (Auto) 12/11/19 12/11/19 08:10 08:31 WBC RBC Hgb Hct MCV MCH MCHC RDW Std Deviation Plt Count MPV Immature Gran % (Auto) Neut % (Auto) Lymph % (Auto) [place] % (Auto) Eos % (Auto) Baso % (Auto) Immature Gran # (Auto) Neut # (Auto) Lymph # (Auto) [place] # (Auto) Eos # (Auto) Baso # (Auto) Specimen Type ARTERIAL pH 7.45 pCO2 39 pO2 80 HCO3 27.2 H Base Excess 2.9 Oxyhemoglobin 95.3 ABG O2 Sat (Calculated) 13.5 L ABG O2 Saturation 99.2 ABG Carboxyhemoglobin 2.50 ABG Methemoglobin 1.4 A-a O2 Difference 21.0 Total Hemoglobin 10.0 L Lactate 0.50 FiO2 % 21.0 Sodium Potassium Chloride Carbon Dioxide Anion Gap BUN Creatinine Estimated GFR/1.73 m2 BUN/Creatinine Ratio Glucose POC Glucose Calculated Osmolality Calcium Total Bilirubin AST ALT Alkaline Phosphatase Troponin T High Sens Aqy-D-Etzfnwponox Pept Total Protein Albumin Globulin Albumin/Globulin Ratio Plasma Lactate Urine Source CATH Urine Color YELLOW Urine Turbidity CLEAR Urine pH 6.5 Ur Specific [place] 1.017 Urine Protein NEGATIVE Ur Glucose (Stick) NEGATIVE Ur Ketones (Stick) NEGATIVE Urine Blood NEGATIVE Urine Nitrite NEGATIVE Urine Bilirubin NEGATIVE Urobilinogen Dipstick NORMAL Urine Leukocytes SMALL A Urine WBC (Auto) 10-20 A Urine RBC (Auto) <10 U Epithel Cells (Auto) <10 Urine Bacteria (Auto) NEGATIVE Orders Category Date Time Status Isolation Precautions Setup NOW Care 12/11/19 07:05 Active NEWS Score 2-4:Order NEWS Lactate Series NOW Care 12/11/19 07:29 Active Saline Loc NOW Care 12/11/19 07:06 Active CHEST-PORTABLE [RAD] Stat Exams 12/11/19 07:06 Completed ABG [RESP] Routine Lab 12/11/19 08:10 Results BLOOD CULTURE [BLDCUL] Stat Lab 12/11/19 07:09 Ordered CBC WITH DIFF [HEME] Stat Lab 12/11/19 07:09 Completed COMPREHENSIVE METABOLIC PANEL [CHEM] Stat Lab 12/11/19 07:09 Completed INFLUENZA SCREEN A/B Stat Lab 12/11/19 07:49 Completed LACTATE, PLASMA [CHEM] Lab 12/11/19 10:09 Uncollected LACTATE, PLASMA [CHEM] Lab 12/11/19 13:09 Uncollected LACTATE, PLASMA [CHEM] Stat Lab 12/11/19 07:09 Completed GASTELUM COVID19 [[place]] Routine Lab 12/11/19 08:36 Received PRO B-NATRIURETIC PEPTIDE Stat Lab 12/11/19 07:09 Completed TROPONIN T HIGH SENSITIVITY Stat Lab 12/11/19 07:09 Completed URINALYSIS W/POSS RFLX CULT [URINALYSIS] Stat Lab 12/11/19 08:31 Completed Pulse Oximetry Stat Oth 12/11/19 07:06 Active Result Diagrams: 12/11/19 07:09 12/11/19 07:09 - REASSESSMENT Reassessment #1 Time Reassessed: 09:00 Status: improving Reassessment Comment: improved mentation, stable oxygen saturation - XRAY 1 XRAY Study: Chest Impression: See EMR Report XRAY Interpretation: NAD, old RUL consolidation - CONSULTS/PCP/HOSPITALIST Notification #1 *Consult/PCP/Hospitalist*: Nirali PRIEST for hospitalist service Time Discussed: 09:25 Consult Disposition: Admit Departure - Departure Date of Disposition Decision: 12/11/19 Time of Disposition Decision: 09:29 DIAGNOSIS: Generalized weakness, Febrile illness, acute Urinary tract infection Qualifiers: Urinary tract infection type: site unspecified Hematuria presence: without hematuria Qualified Code(s): N39.0 - Urinary tract infection, site not specified AMS (altered mental status) Qualifiers: Altered mental status type: unspecified Qualified Code(s): R41.82 - Altered mental status, unspecified Disposition: ADMITTED INPATIENT 09 Certified Medical Emergency: Emergent Condition: Stable Referrals and Follow-Ups: Joseph Rod MD [Primary Care Provider] - - Critical Care Note This patient required my direct & personal management of CC.: No Attestation - Physician/ FARZANEH Attestation Patient care was provided by Advanced Practice Provider:: No The physician spent face to face time with patient:: Yes Advanced Practice Provider documentation review:: Supervising physician onsite and consulted in the evaluation and care of this patient. The physician did have a face to face encounter with the patient.
[2019-12-11 07:29] LABS: BASO# 0.01 X1000 (0.0-0.2); BASO% 0.1 % (0.0-0.8); EOS# 0.17 X1000 (0.0-0.7); EOS% 2.3 % (0.0-10.0); HEMATOCRIT 33.3 % (37.0-47.0); HEMOGLOBIN 10.7 g/dL (12.0-16.0); IMM GRAN# 0.04 X1000 (0.0-0.04); IMM GRAN% 0.5 % (0.0-0.5); LYMPH% 6.8 % (20.5-51.1); MCH 27.4 PG (27-31); MCHC 32.1 g/dL (33-37); MCV 85.4 FL (81-99); MONO# 0.24 X1000 (0.11-0.59); MONO% 3.2 % (1.7-9.3); MPV 7.7 FL (7.4-10.4); NEUT# 6.43 X1000 (1.4-6.5); NEUT% 87.1 % (42.2-75.2); PLT 319 X1000 (130-400); RDW 17.1 % (11.5-14.5); WBC 7.39 X1000 (4.8-10.8)
[2019-12-11 07:54] LABS: ESTIMATED GFR > 60
[2019-12-11 07:57] LABS: AGAP 12; ALB/GLOB RATIO 1.7; ALKALINE PHOSPHATASE 109 U/L (32-104); BUN 9 mg/dL (8-22); CALCIUM 9.8 mg/dL (8.8-10.2); CHLORIDE 86 mmol/L (98-107); COSMO 255; CREATININE 0.3 mg/dL (0.5-0.9); GLUCOSE 110 mg/dL (70-104); GOT 12 U/L (10-30); GPT 8 U/L (10-36); POTASSIUM 4.9 mmol/L (3.5-5.1); SODIUM 127 mmol/L (136-145); TCO2 29 mmol/L (25-35); TOTAL BILIRUBIN 0.55 mg/dL (0.20-1.00); TOTAL PROTEIN 6.4 g/dL (6.3-8.3)
[2019-12-11 08:15] LABS: BE 2.9 mmoll (-3.0-3.0); BLOOD TYPE ARTERIAL; HCO3-(ACT) 27.2 mmoll (20.0-26.0); METHB 1.4 % (0.0-1.5); O2(CT) 13.5 mL/dL (15.0-23.0); O2HB 95.3 % (95.0-99.0); PCO2(98.6) 39 mmHg (35-45); PO2(98.6) 80 mmHg (60-100); SAMPLE BLOOD; SAO2 99.2 % (95.0-100.0); pH(98.6) 7.45 (7.35-7.45)
--- NOTE | 2019-12-11 08:28 | Diag Imaging Result Doc PS360 ---
EXAM: CHEST-PORTABLE INDICATION: cough TECHNIQUE: One view COMPARISON: 11/14/2019 FINDINGS: The lungs appear somewhat hyperinflated suggesting mild COPD, stable. The very vague nodular density in the right upper lobe seen previously is grossly unchanged. No new consolidations are appreciated. There is no discrete pleural fluid collection or pneumothorax. The cardiomediastinal silhouette and central vasculature are grossly unremarkable. IMPRESSION: Stable vague nodular density in the right upper lobe. No new consolidations are appreciated. Electronically signed by Smooth Guadalupe 12/11/2019 8:26 AM
[2019-12-11 09:01] LABS: URINE SOURCE CATH
[2019-12-11 09:19] LABS: BILIRUBIN URINE NEGATIVE (NEGATIVE); BLOOD URINE NEGATIVE (NEGATIVE); COLOR YELLOW; GLUCOSE URINE NEGATIVE (NEGATIVE); KETONE URINE NEGATIVE (NEGATIVE); LEUKOCYTES URINE SMALL (NEGATIVE); NITRITE URINE NEGATIVE (NEGATIVE); PH URINE 6.5; PROTEIN URINE NEGATIVE (NEGATIVE); SP GRAVITY URINE 1.017; TURBIDITY URINE CLEAR (CLEAR); UROBILINOGEN URINE NORMAL (NORMAL)
[2019-12-11 09:20] LABS: UR EPITHELIAL CELLS <10 /HPF (<10); URINE BACTERIA NEGATIVE /HPF; URINE RBC <10 /HPF (<10)
[2019-12-11] MEDS ORDERED: TYLENOL PO PRN (10:09)
[2019-12-11] MEDS ORDERED: TEARISOL OPH SOLUTION BOTH EYES PRN (10:09)
[2019-12-11] MEDS ORDERED: LIORESAL PO PRN (10:09)
[2019-12-11] MEDS ORDERED: ZOFRAN IV PRN (10:09)
[2019-12-11] MEDS ORDERED: METHOTREXATE PO SCH (10:15)
[2019-12-11] MEDS ORDERED: NS 1,000 ML IV SCH (10:15)
--- NOTE | 2019-12-11 11:05 | HISTORY AND PHYSICAL ---
PRIMARY CARE PROVIDER: Josefa Crockett, physician's human resources assistant at [facility]. CHIEF COMPLAINT: Fever. HISTORY OF PRESENT ILLNESS: Ms. Fina Pizarro is a 79-year-old, female. She is very cachectic. States she has not been eating well. Started a high-grade fever this morning and improved after Tylenol. She came in. She has had a complaint of a dry cough. Her chest x-ray actually shows an area of a vague nodular density in the right upper lobe which was there on a previous CT. It does not seem that it has changed. Reviewing her medical records, she just recently had a left axillary node biopsy performed on the of this month, which was just a few days ago. The pathology came back that she is positive for lymphoma. Her reason for coming in was the complaints of the fever and the dry cough. Apparently, that started around 6 a.m. She is not short of breath. She does not have hypoxia but we will go ahead and get her admitted and consult Dr. Escobar, which is who looks like ordered the biopsy, for further treatment and evaluation. PAST MEDICAL HISTORY: 1. Blood clots. 2. Hyperlipidemia. 3. GERD. 4. Hypothyroidism. 5. 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 6. Malignant neoplasm at the base of the tongue. 7. Recent L1 compression fracture from a fall. 8. COPD. 9. New diagnosis of Hodgkin's lymphoma. PAST SURGICAL HISTORY: 1. On 12/05/2019, had a left axillary node biopsy. 2. In February of 2019, had sigmoidoscopy. 3. Right eye surgery. 4. section. SOCIAL HISTORY: She was difficult to obtain information from. Old records show that she lived at home, and denies tobacco, alcohol, or illicit drug use. FAMILY HISTORY: Unknown. ALLERGIES: D5 in water, Zyvox, codeine, and prednisone. HOME MEDICATIONS: 1. Clonazepam 0.5 mg p.o. nightly. 2. Neurontin 100 mg p.o. nightly. 3. Senokot 8.6 mg p.o. nightly. 4. Systane eyedrops nightly. 5. Refresh eyedrops every 4 hours p.r.n. 6. Folic acid 1 mg p.o. t.i.d. 7. Mobic 15 mg p.o. daily. 8. Methotrexate on Tuesdays, , and Fridays. She takes 5 mg twice a day. 9. Myrbetriq 25 mg p.o. daily. 10. Tylenol 650 mg p.o. q.6 hours p.r.n. 11. Prednisone eyedrops to both eyes daily. 12. Restasis 2 drops to both eyes twice daily. 13. Synthroid 50 mcg p.o. daily. 14. Timolol maleate 1 drop to both eyes twice daily. 15. Zyrtec 10 mg p.o. daily. 16. Baclofen 10 mg p.o. q.8 hours p.r.n. 17. Lidocaine patch topical daily for 30 days. 18. Ibuprofen 200 mg p.o. every 8 hours p.r.n. REVIEW OF SYSTEMS: Difficult to obtain but she does complain of headache and lower back pain in addition to the fever and the dry cough. Otherwise, a 14-point review of systems was complete and all were negative except for those mentioned above in the HPI. PHYSICAL EXAMINATION: VITAL SIGNS: Temperature 100.7 degrees, heart rate 90, respiratory rate 17, blood pressure 161/75, O2 saturation 98% on room air, 4 feet 1 inch tall, 110 pounds. GENERAL: Ms. Fina Pizarro is a 79-year-old, female. She is in no acute distress but she is confused and does not answer very many questions appropriately. The patient appears very cachectic. HEENT: Atraumatic, normocephalic. Left pupil reactive. Right eye cloudy. Mucous membranes are dry. NECK: Trachea midline. CARDIOVASCULAR: S1, S2. Regular rate and rhythm. No rubs, gallops, murmurs. There is no lower extremity edema. There are +2 dorsalis and radial pulses. Negative JVD and carotid bruits. PULMONARY: Clear to auscultate bilateral breath sounds. No accessory muscle use or work of breathing noted. GI: Soft, nontender, nondistended. Positive bowel sounds x4. EXTREMITIES: Moves all extremities equally but decreased range of motion. NEUROLOGIC: Oriented to name only. Follows commands. Decreased sensory in the lower extremities. SKIN: Warm, dry, intact. LABORATORY DATA: White blood cells 7000, hemoglobin 10, hematocrit 33, platelet count 319,000. ABGs on room air, pH 7.45, pCO2 of 39, PO2 is 80, bicarb 27, base excess is 2.9, saturation 95%. Lactate was 0.5. Serum lactate 0.8. Sodium 127, potassium 4.9, BUN 9, creatinine 0.3, glucose 110, calcium 9.8. Bilirubin 0.55, AST 12, ALT 8. Troponin 9. ProBNP 335. Albumin is 4.0. Urinalysis, small leukocytes, 10 to 20 white blood cells, otherwise negative. Influenza screening, A and B are both negative. Blood culture obtained. Covid-19 reordered. Last Covid-19 was ordered on the 15 of November which was negative at that time. IMAGING: Chest x-ray, stable vague nodular density in the right upper lobe. No new consolidations appreciated. There is mild COPD. ASSESSMENT AND PLAN: 1. Fever of unknown origin but most likely due to Hodgkin's lymphoma. Recently had a biopsy of the left axillary node with the results coming back as Hodgkin's lymphoma. It appears that Dr. Escobar has been following her so we will consult her. Tylenol for the fever. Follow up on cultures. She is also going to be ruled out once again for Covid-19 and is in isolation for that. 2. History of malignant neoplasm at the base of the tongue and now with new Hodgkin's lymphoma so again, we will consult with Dr. Hailee Escobar for any further recommendations. 3. Recent L1 compression fracture. She has got pain medication for that, mostly Tylenol. She also has a lidocaine patch and Neurontin. 4. Chronic obstructive pulmonary disease. No home medications for that. She is not short of breath and she is not hypoxic at this time. There is no CO2 retention. 5. Right upper lobe mass, could be associated to the lymphoma. 6. Hypothyroidism. Continue Synthroid. 7. Right eye blindness. Continue all eyedrops. 8. Metabolic encephalopathy. She does have a lower sodium level. We will do some normal saline at 50 mL an hour. 9. Hyponatremia. Currently will receive normal saline. It could be cancer- related. 10. Recent report of oral abscess, on antibiotic therapy. The oropharynx area is clear. There does not appear to be any type of abscess found on assessment. 11. Deep venous thrombosis prophylaxis. Sequential compression devices. Dictated by CEM Willard for Braber Bledsoe MD cc: CEM Willard MD I agree with most components of history, physical, assessment and plan. A separate addendum has been dictated. MTDD
[2019-12-11] MEDS: ZYRTEC PO SCH (11:21)
[2019-12-11] MEDS: LIDODERM TOP SCH (11:38)
[2019-12-11] MEDS: TIMOPTIC 0.5% OPH SOLUTION BOTH EYES SCH ×2 (13:48→20:12)
[2019-12-11] MEDS: PRED FORTE 1% OPH SUSPENSION BOTH EYES SCH (13:48)
--- NOTE | 2019-12-11 13:50 | HEMO/ONC CONSULTATION ---
DATE: 12/11/2019 REASON FOR CONSULTATION: Patient was seen in initial consultation regarding lymphoma at the request of Dr. Bledsoe. HISTORY OF PRESENT ILLNESS: Ms. Pizarro presented to the emergency room on 12/11/2019, which is the day of admission and date of consultation, with fever x2 days and a dry cough. She was noted to have a right upper lobe nodular density that is stable, as well as some axillary adenopathy. She was noted to have a UTI as well and has been admitted for the same. Covid testing is pending. PAST MEDICAL HISTORY: Significant for base of tongue cancer, DVT, osteoarthritis, osteopenia, diverticulosis, degenerative joint disease, spinal stenosis, compression fracture, COPD, constipation, hypertension, hypothyroidism, uveitis, right eye blindness, and immunoglobulin deficiency. PAST SURGICAL HISTORY: Tongue biopsy, section, eye surgery, tonsillectomy. SOCIAL HISTORY: Patient is and lives with her . She is a former smoker who smoked 1 pack per day for 10 years but quit 30 years ago. No alcohol or illicit drug use. FAMILY MEDICAL HISTORY: Mom at 72 with emphysema. Dad at 69 with Parkinson's. Children are 55, 53, and 46, and healthy. She has a sibling who is 78 with leukemia. Other two are 74 and 63, and healthy. GYNECOLOGIC HISTORY: 2, para 2. The patient has never had a hysterectomy. MEDICATIONS: Reviewed, per the chart. ALLERGIES: Codeine and prednisone. PHYSICAL EXAMINATION: Vital Signs: At the time of consultation, temperature 99.6 degrees and on admission, it was 100.7, pulse is 93, respiratory rate 16, blood pressure 169/62, O2 saturation 99% on room air. Weight is 83 pounds. General: This is a thin, frail, chronically ill- appearing, elderly, woman in no acute distress. She is accompanied by a nurse at the bedside at the time of consultation. Eyes are covered with a mask at the time of consultation. Cardiovascular: Regular rate and rhythm. Normal S1, S2. No murmurs, rubs, or gallops. Pulmonary: Lungs are clear to auscultation bilaterally without wheezes, rales, or rhonchi. GI: Abdomen is soft, nontender, nondistended, with normoactive bowel sounds. Rest of examination is unremarkable. LABORATORY DATA: White count 7.39, hemoglobin 10.7, platelet count 319,000. ABG, pH 7.45, pCO2 of 39, PaO2 of 80, bicarb 27, O2 saturation is 99% on room air. Sodium 127, potassium 4.9, creatinine 0.3, calcium 9.8. AST 12, ALT 8, alkaline phosphatase 109, lactate 0.3. Urinalysis shows small leukocytes and 10 to 20 white blood cells. IMAGING: Chest x-ray, vague nodular density in the right upper lobe, previously seen on CT and unchanged. Outpatient PET scan 10/26/2019 shows interval progression of FDG avid active metastatic disease with antwon metastases in both axillae and posterior left hilum, three hepatic metastases and multiple osseous metastases with new FDG active pulmonary metastasis in the right lung, new omental and peritoneal metastasis in the left mid abdomen, and probable metastatic disease involving the right nasal cavity near the base of the right middle turbinate. Pathology per Dr. Sahu showed Hodgkin's lymphoma. ASSESSMENT AND PLAN: 1. Fever and cough: The patient is being placed in isolation and ruled out for Covid infection. Urinalysis sent for culture for possible urinary tract infection. Follow up on those results. 2. Hodgkin's lymphoma: Newly diagnosed. I have discussed the results with the patient and we will discuss further treatment once acute issues resolve. We would plan for curative treatment for her lymphoma, which is stage IV with organ involvement of at least the liver. 3. Anemia: Her hemoglobin is stable at 10.7. This is slightly lower than her baseline of 11.3 in our office a few weeks ago. Continue to monitor. 4. Hyponatremia: Correction as per hospitalist team. Thank you for this consultation and the opportunity to participate in the care of this patient. We will follow along and make further recommendations as indicated. cc: MD Barber Hernandez MD
[2019-12-11] MEDS: RESTASIS 0.05% OPH DROPS BOTH EYES SCH ×2 (13:52→23:49)
[2019-12-11] MEDS ORDERED: VENTOLIN HFA INH PRN (15:07)
--- NOTE | 2019-12-11 15:07 | HISTORY AND PHYSICAL ---
ADDENDUM: To history and physical dictated by the nurse practitioner. I agree with most components of history, physical, assessment, and plan. In brief, Ms. Pizarro is a 79-year-old lady with past medical history of recently diagnosed lumbar compression fracture, hypothyroidism, DVT, right eye blindness, COPD, recently diagnosed Hodgkin lymphoma, who comes in with chief complaints of fever. In the emergency room, she was hemodynamically stable. However, she had an episode of fever and she appeared confused. She was also found to have hyponatremia, so the Hospitalist team was consulted for further management. Her COVID testing has been sent. SUBJECTIVE: Ms Pizarro denies any chest pain, shortness of breath, or cough. She denies any nausea, vomiting, abdominal pain. She continues to complain of poor appetite and dysphagia as well as fever. REVIEW OF SYSTEMS: Negative for headache. Negative for constipation or diarrhea. VITAL SIGNS: Temperature 99.6 degrees, pulse 91, respiratory rate 16, blood pressure 116/62, she is saturating 99% on room air. PHYSICAL EXAMINATION: GENERAL: She is not in acute distress. HEENT: Oral cavity is moist. LUNGS: Air entry bilaterally equal. No wheeze, rhonchi, or crackles. CARDIOVASCULAR: S1, S2 normal. No murmur, rub, or gallop. ABDOMEN: Soft, nontender. It appears scaphoid. EXTREMITIES: No lower extremity edema. NEUROLOGIC: She is alert. She is oriented to herself. She could not tell me the name of the place. She does appear to have some memory impairment and initially she could not tell me if she was diagnosed with cancer and she could not tell me if she had a cancer doctor. Later on she was reorientable and could tell me her cancer doctor's name. LABORATORY DATA: WBC Normal, hemoglobin 10.7, platelet 319,000. Sodium 127, chloride 86, BUN is 9, creatinine 0.3, alkaline phosphatase 109. She does have pyuria with WBC of 10 to 20 in the urine. Her urine culture is in lab. Influenza screen was negative. ASSESSMENT AND PLAN: 1. Acute encephalopathy which could be metabolic in the setting of clinical volume depletion due to poor oral intake, hyponatremia superimposed with urinary tract infection. She does not demonstrate any focality on clinical examination. She was able to move both upper and lower extremities above ground level during examination. I will monitor it and will consider getting head imaging in the future if needed. 2. Fever of unknown origin. This could be related to acute cystitis without hematuria. I will start her on intravenous fluids and intravenous ceftriaxone. She does have lymphoma with widespread organ involvement which could cause low-grade fever. 3. Suspected Coronavirus Disease 2019 infection. It was negative in October. I will follow up with repeat Coronavirus Disease 2019 testing and keep her on precautions. 4. Others. Continue her home medication for hypothyroidism, TLSO brace for her lumbar compression fracture. She would need outpatient Oncology follow-up. Appreciate Oncology's recommendation. Plan of care discussed with the patient. Her questions have been answered. cc: Barber Bledsoe MD MTDD
[2019-12-11] MEDS: MYRBETRIQ E.R. PO SCH (15:37)
[2019-12-11] MEDS: SYNTHROID PO SCH (15:37)
[2019-12-11] MEDS ORDERED: DUONEB (A & A) INH SCH (16:00)
[2019-12-11] MEDS: ROCEPHIN 1 GM in NS 50 ML IV SCH (16:30)
[2019-12-11] MEDS: FOLIC ACID PO SCH ×2 (16:30→23:49)
[2019-12-11] MEDS: KLONOPIN PO SCH (20:12)
[2019-12-11] MEDS: NEURONTIN PO SCH (20:13)
[2019-12-11] MEDS: SENOKOT PO SCH (20:13)
[2019-12-11] MEDS: SYSTANE EYE DROPS BOTH EYES SCH (23:49)
[2019-12-12 07:18] LABS: AGAP 13; ALB/GLOB RATIO 0.9; ALBUMIN 2.9 g/dL (3.5-5.0); ALKALINE PHOSPHATASE 88 U/L (32-104); BUN 10 mg/dL (8-22); CALCIUM 8.6 mg/dL (8.8-10.2); CHLORIDE 91 mmol/L (98-107); COSMO 253; CREATININE 0.3 mg/dL (0.5-0.9); ESTIMATED GFR > 60; GLUCOSE 78 mg/dL (70-104); GOT 11 U/L (10-30); GPT 6 U/L (10-36); MAGNESIUM 1.8 mg/dL (1.5-2.7); POTASSIUM 3.7 mmol/L (3.5-5.1); SODIUM 127 mmol/L (136-145); TCO2 23 mmol/L (25-35); TOTAL BILIRUBIN 0.57 mg/dL (0.20-1.00); TOTAL PROTEIN 6.1 g/dL (6.3-8.3)
[2019-12-12 07:44] LABS: BASO# 0.01 X1000 (0.0-0.2); BASO% 0.2 % (0.0-0.8); EOS# 0.07 X1000 (0.0-0.7); EOS% 1.3 % (0.0-10.0); HEMATOCRIT 30.4 % (37.0-47.0); HEMOGLOBIN 9.9 g/dL (12.0-16.0); LYMPH# 0.39 X1000 (1.2-3.4); MCH 27.9 PG (27-31); MCHC 32.6 g/dL (33-37); MCV 85.6 FL (81-99); MONO# 0.55 X1000 (0.11-0.59); MONO% 9.9 % (1.7-9.3); MPV 7.8 FL (7.4-10.4); NEUT# 4.55 X1000 (1.4-6.5); NEUT% 81.6 % (42.2-75.2); PLT 236 X1000 (130-400); RBC 3.55 XMIL (4.2-5.4); RDW 17.3 % (11.5-14.5); WBC 5.57 X1000 (4.8-10.8)
[2019-12-12 08:18] LABS: BANDS 2 % (0-1); LYMPHS 6 % (21-51); MONO 6 % (1-9); SEGS 86 % (42-75)
[2019-12-12] MEDS ORDERED: MOBIC PO SCH (09:00)
[2019-12-12] MEDS: TIMOPTIC 0.5% OPH SOLUTION BOTH EYES SCH ×2 (09:30→23:09)
[2019-12-12] MEDS: LIDODERM TOP SCH (09:30)
[2019-12-12] MEDS: MYRBETRIQ E.R. PO SCH (09:31)
[2019-12-12] MEDS: PRED FORTE 1% OPH SUSPENSION BOTH EYES SCH (09:31)
[2019-12-12] MEDS: RESTASIS 0.05% OPH DROPS BOTH EYES SCH ×2 (09:31→23:09)
[2019-12-12] MEDS: ZYRTEC PO SCH (09:32)
[2019-12-12] MEDS: FOLIC ACID PO SCH ×3 (09:32→16:41)
[2019-12-12] MEDS: SYNTHROID PO SCH (09:32)
[2019-12-12 09:59] LABS: ALLEN TEST YES
[2019-12-12] MEDS ORDERED: ORAJEL MAXIMUM ST 20% GEL TOP PRN (12:36)
[2019-12-12] MEDS: ROCEPHIN 1 GM in NS 50 ML IV SCH (14:21)
[2019-12-12] MEDS ORDERED: NS 1,000 ML IV SCH (16:30)
--- NOTE | 2019-12-12 17:36 | PROGRESS NOTE ---
DATE: 12/12/2019 INTERVAL HISTORY: No acute events overnight. Oncology team had evaluated Ms Pizarro. She had one time temperature of 99.9 degrees. Otherwise, she has been hemodynamically stable. She continues to have poor appetite. SUBJECTIVE: Ms Pizarro denies any complaints. She denies chest pain, shortness of breath, cough. REVIEW OF SYSTEMS: Negative for abdominal pain. Positive for poor appetite. VITALS: Temperature 98.1 degrees, pulse 81, respiratory rate 20, blood pressure 141/47, saturating 100% on room air. PHYSICAL EXAMINATION: General: Ms Pizarro is not in any acute distress. HEENT: Oral cavity is moist. She has right-sided eye blindness. Lungs: Air entry bilaterally equal. No wheeze, rhonchi, crackles. Cardiovascular: S1, S2 normal. No gallop. Abdomen: Soft, nontender. It appears scaphoid. Extremities: No lower extremity edema. Ms Pizarro appears to have severe protein energy malnutrition. Neurologic: She is alert and oriented to place and time. She could tell me the name of her cancer doctor. Lymphatic: She has left axillary lymph node mass. LABS: Suggestive of hemoglobin 9.9, platelet 236,000. Sodium 127, chloride 91, BUN 10, creatinine 0.3. Her COVID 19 test has been negative. Urine culture has not shown any growth. Blood culture has been negative. Influenza screen has been negative. IMAGING: No new imaging. ASSESSMENT AND PLAN: 1. Acute encephalopathy likely metabolic in the setting of clinical volume depletion. She probably has baseline component of cognitive impairment. She currently appears alert and pretty close to her baseline. I will continue intravenous fluids and intravenous antibiotics until I get final blood culture data. 2. Fever of unknown origin. This is likely in the setting of her diffuse stage IV lymphoma, though infection is not completely ruled out, so I will keep her on fluids and antibiotics until I get blood culture results. 3. Hodgkin's lymphoma involving both axilla, posterior left hilum, liver, multiple osseous metastasis, pulmonary metastasis of the right lung, omental and peritoneal metastasis in the left mid abdomen and probably involving right nasal cavity near the base of the right middle turbinate. Oncology team planning treatment, curative treatment outpatient. 4. Others. Continue Synthroid for hypothyroidism; TLSO brace for lumbar compression fracture; senna for constipation; Myrbetriq for bladder spasm; intravenous ceftriaxone for empiric antibiotics; clonazepam for anxiety; gabapentin for chronic pain and benzocaine for the mouth ulcers. DISPOSITION: I will monitor patient in the hospital for 24 hours. I would anticipate discharge tomorrow. She is in agreement with the plan. cc: Barber Bledsoe MD
[2019-12-12] MEDS: KLONOPIN PO SCH (23:08)
[2019-12-12] MEDS: NEURONTIN PO SCH (23:08)
[2019-12-12] MEDS: SENOKOT PO SCH (23:09)
[2019-12-12] MEDS: SYSTANE EYE DROPS BOTH EYES SCH (23:09)
[2019-12-13 07:58] LABS: BASO# 0.02 X1000 (0.0-0.2); BASO% 0.3 % (0.0-0.8); EOS% 1.6 % (0.0-10.0); HEMATOCRIT 31.1 % (37.0-47.0); HEMOGLOBIN 9.9 g/dL (12.0-16.0); IMM GRAN% 1.6 % (0.0-0.5); LYMPH# 0.49 X1000 (1.2-3.4); LYMPH% 7.9 % (20.5-51.1); MCH 27.3 PG (27-31); MCHC 31.8 g/dL (33-37); MCV 85.7 FL (81-99); MONO# 0.79 X1000 (0.11-0.59); MONO% 12.7 % (1.7-9.3); MPV 7.8 FL (7.4-10.4); NEUT# 4.72 X1000 (1.4-6.5); NEUT% 75.9 % (42.2-75.2); PLT 251 X1000 (130-400); RBC 3.63 XMIL (4.2-5.4); WBC 6.22 X1000 (4.8-10.8)
[2019-12-13 08:15] LABS: AGAP 13; ALBUMIN 2.9 g/dL (3.5-5.0); ALKALINE PHOSPHATASE 89 U/L (32-104); BUN 6 mg/dL (8-22); CALCIUM 8.5 mg/dL (8.8-10.2); CHLORIDE 92 mmol/L (98-107); COSMO 254; CREATININE 0.3 mg/dL (0.5-0.9); ESTIMATED GFR > 60; GLUCOSE 81 mg/dL (70-104); GOT 11 U/L (10-30); GPT 7 U/L (10-36); MAGNESIUM 1.9 mg/dL (1.5-2.7); POTASSIUM 3.8 mmol/L (3.5-5.1); SODIUM 128 mmol/L (136-145); TCO2 23 mmol/L (25-35); TOTAL BILIRUBIN 0.43 mg/dL (0.20-1.00); TOTAL PROTEIN 5.7 g/dL (6.3-8.3)
[2019-12-13] MEDS: MYRBETRIQ E.R. PO SCH (08:30)
[2019-12-13] MEDS: RESTASIS 0.05% OPH DROPS BOTH EYES SCH (08:30)
[2019-12-13] MEDS: ZYRTEC PO SCH (08:30)
[2019-12-13] MEDS: SYNTHROID PO SCH (08:30)
[2019-12-13] MEDS: FOLIC ACID PO SCH ×3 (08:30→17:40)
[2019-12-13] MEDS: LIDODERM TOP SCH (08:31)
[2019-12-13] MEDS ORDERED: METHOTREXATE PO SCH ×2 (09:00)
[2019-12-13] MEDS: ROCEPHIN 1 GM in NS 50 ML IV SCH (14:40)
[2019-12-13 15:38] VITALS: BP 138/58
[2019-12-13] MEDS: TIMOPTIC 0.5% OPH SOLUTION BOTH EYES SCH (17:40)
[2019-12-13] MEDS: PRED FORTE 1% OPH SUSPENSION BOTH EYES SCH (17:40)
--- NOTE | 2019-12-13 20:15 | DISCHARGE SUMMARY ---
ADMISSION DATE: 12/11/2019 DISCHARGE DATE: 12/13/2019 DISCHARGE DISPOSITION: Home with family. DISCHARGE CONDITION: Hemodynamically stable. Her urine culture is growing gram-negative rods, though final result is not back. She will be discharged on empiric levofloxacin. She was advised to have follow up with Orthopedic doctor for her recently diagnosed lumbar compression fracture and oncologist for her lymphoma. She was advised to complete antibiotic course. DISCHARGE DIAGNOSES: 1. Acute encephalopathy likely metabolic in the setting of clinical volume depletion. 2. Fever, thought to be related to lymphoma. 3. Acute cystitis without many symptoms. 4. Recently diagnosed Hodgkin's lymphoma involving axilla, posterior left hilum of lung, liver, multiple osseous metastasis, pulmonary metastasis of right lung, omental and peritoneal metastasis in the left mid abdomen and right nasal cavity. 5. Acute cystitis due to gram-negative rods. 6. Clinical volume depletion leading to hyponatremia and hypochloremia. OTHER DIAGNOSES: 1. Hypothyroidism. 2. Recently diagnosed lumbar compression fracture managed conservatively. 3. Urinary bladder spasm. 4. Anxiety. 5. Chronic pain. 6. History of blindness of the right eye. 7. Malignant neoplasm of the base of the tongue, status post radiation. 8. History of chronic obstructive pulmonary disease. DISCHARGE MEDICATIONS: 1. Clonazepam 0.5 mg at nighttime. 2. Gabapentin 100 mg at nighttime. 3. Senna 1 tablet every nighttime. 4. Systane and Refresh eye drops every 4 hours as needed. 5. Folic acid 1 tablet t.i.d. 6. Methotrexate 2.5 mg tablets, 2 tablets morning, 2 tablets evening, 2 tablets Tuesday morning, 2 tablets Tuesday evening. 7. Myrbetriq 25 mg daily. 8. Prednisone eyedrops 1 drop in both eyes. 9. Cyclosporine eye drops, both eyes. 10. Levothyroxine 50 mcg daily. 11. Timolol eyedrops, one eyedrop b.i.d. 12. Cetirizine 10 mg daily. 13. Baclofen 10 mg every 8 hours as needed for muscle spasm. 14. Levofloxacin 500 mg daily, 5 tablets have been prescribed. 15. Lidocaine patch, 1 patch topical daily. 16. Ibuprofen 200 mg every 8 hours as needed. PHYSICAL EXAMINATION: Vital Signs: At the time of discharge, temperature 98.1 degrees, pulse 80, respiratory rate 20, blood pressure 138/58, saturating 98% room air. General: Ms. Pizarro is not in acute distress. HEENT: Oral cavity is moist. No ulcer. Lungs: Air entry bilaterally equal. No wheeze, rhonchi, crackles. Cardiovascular: S1, S2 normal. No murmur or gallop. Abdomen: Scaphoid, soft, nontender. Extremities: No lower extremity edema. She appears to have severe protein calorie malnutrition. Neurologic: Ms. Pizarro has a right-sided eye corneal xerosis with blindness. She has palpable left axillary lymph node mass. She is alert. She is oriented to herself, place and partially with the situation. She is able to adjust herself in the bed and able to raise both upper and lower extremities above ground level with intact sensations. LABS: At the time of hospital admission and discharge; WBC 6.2, hemoglobin 9.9, platelet 251,000. Sodium 128, chloride 92, BUN 6, creatinine 0.3. Her albumin is 2.9. Her COVID-19 test was negative. Urinalysis had 10 to 20 WBCs and small leukocytes. Microbiology urine culture is growing gram-negative yamilet. Blood culture did not have any growth. Influenza screen and COVID-19 screen were negative. IMAGING: During hospital admission chest x-ray on presentation had stable vague nodular density in the right upper lung without any new consolidation. CONSULTATIONS DURING HOSPITAL ADMISSION: Oncology, Dr. Escobar. HOSPITAL COURSE SUMMARY: Ms. Pizarro is 79-year-old lady with recently diagnosed lumbar compression fracture, right eye blindness, COPD, recently diagnosed Hodgkin's lymphoma, who came in with chief complaints of fever. In the emergency room, she was found to have temperature of 100.7 degrees, pulse of 96, respiratory rate of 17, blood pressure of 161/75. Her WBC count was 7.39. Her sodium was 127. She was found to be confused in the emergency room, so the hospitalist team was consulted for further management. It was thought her confusion was likely related to mild dehydration, clinical volume depletion due to poor oral intake, so she was resuscitated with intravenous fluids and was started on empiric intravenous antibiotics for suspected UTI. At the time of discharge, her antibiotics were changed to empiric oral Levaquin as urine culture was growing gram-negative rods. It was thought that her fever was likely related to her lymphoma since her UTI was not very severe and she did not have much symptoms of it except occasional incontinence. Oncology team was consulted and had just recommended outpatient therapy for lymphoma. I called patient's on the phone and discussed with him about following up with oncologist, orthopedic doctor, and the possibility that her fever was likely related to lymphoma. He was allowed to ask questions. Questions were answered. TIME SPENT: 25 minutes were spent discharging this patient. cc: Barber Bledsoe MD
== END 2019-12-13 17:43 | disposition home health service (06) | DRG 640 ==
LOC: SUPCPDRO → ED 06:57 → 4N 10:16
PROVIDERS: ATTEND Internal Medicine